=== PATIENT | female | born 1955 | race Hispanic/Latino ===

== ENCOUNTER 2023-08-28 18:07 | Inpatient (IN) | payer OTHER ==
[2023-08-28 18:34] LABS: Absolute Lymphocytes (CBC) 2.7 K/uL (0.7-4.9); Hematocrit 42.3 % (36.0-45.0); Lymphocytes % 24.4 % (15.3-44.8); MPV 9.3 fL (7.6-11.3); Platelets 314 thou/uL (152-406); RBC Red Blood Cell Count 4.98 M/uL (3.86-4.86)
--- NOTE | 2023-08-28 18:42 | RAD REPORT ---
EXAM DESCRIPTION: RAD - Chest Single View - 08/28/2023 6:37 pm CLINICAL HISTORY: CHEST PAIN Chest pain. COMPARISON: <Comparisons> FINDINGS: Portable technique limits examination quality. Mild interstitial pulmonary edema. The heart is mildly enlarged in size. No displaced fractures. IMPRESSION: Mild CHF.
[2023-08-28 18:45] LABS: Protime INR 1.03
[2023-08-28 18:55] LABS: ALT/SGPT 26 U/L (13-56); AST/SGOT 20 U/L (15-37); Albumin 3.5 g/dL (3.4-5.0); Alkaline Phosphatase 76 U/L (45-117); BUN Blood Urea Nitrogen 26 mg/dL (7-18); Bicarbonate 29 mEq/L (21-32); Bilirubin Total 0.2 mg/dL (0.2-1.0); Glomerular Filtration Rate 42 ml/min (=/>90); Glucose Level 164 mg/dL (74-106); Magnesium 1.8 mg/dL (1.6-2.4); Potassium 3.6 mEq/L (3.5-5.1); Protein, Total 7.6 g/dL (6.4-8.2); Sodium Level 140 mEq/L (136-145)
[2023-08-28 18:56] LABS: Bilirubin Direct < 0.1 mg/dL (0-0.2); Bilirubin Indirect, Calculated ND mg/dL (0.2-0.8)
[2023-08-28 18:58] LABS: Troponin High Sensitivity 131.5 pg/mL (<58.9)
--- NOTE | 2023-08-28 19:03 | RAD REPORT ---
EXAM DESCRIPTION: CT - Ct Stroke Brain Wo Cont - 08/28/2023 6:50 pm CLINICAL HISTORY: STROKE ALERT Headache, drowsiness, CVA symptomology COMPARISON: No comparisons TECHNIQUE: All CT scans are performed using dose optimization technique as appropriate and may inclu de automated exposure control or mA/KV adjustment according to patient size. FINDINGS: No intracranial hemorrhage, hydrocephalus or extra-axial fluid collection.8 mm area of dim inished density is seen in the right basal ganglia likely subacute infarct. Left vertebral atheroscle rosis. The paranasal sinuses and mastoids are clear. The calvarium is intact. IMPRESSION: 8 mm subacute infarct suspected right basal ganglia. No bleed is present.
--- NOTE | 2023-08-28 19:09 | EDPHYS ---
Physician Documentation [facility] Name: Ayleen Salas Age: 67 yrs Sex: Female : 1955 Arrival Date: 08/28/2023 Time: 18:07 Bed 20 Private MD: ED Physician Jimenez Coelho HPI: 08/28 19:15 This 67 yrs old Female presents to ER via Wheelchair with complaints of sb4 Slurred Speech. 19:15 Patient has history of hypertension, type 2 diabetes, tobacco abuse presents with sb4 slurred speech x 2 days. Daughter states that patient had a CVA in her home country 4 weeks ago and had completely recovered, no permanent deficits. States that she is taking antihypertensives and blood thinners, unknown name. They report that she started experiencing new onset slurred speech 2 days ago that has not improved they brought her for further evaluation. Historical: - Allergies: 18:33 No Known Allergies; db - Home Meds: 18:33 Metformin Oral [Active]; db - PMHx: 18:33 Hypertensive disorder; Diabetes mellitus; db - Immunization history:: Adult Immunizations unknown. - Social history:: Smoking status: Patient reports the use of cigarette tobacco products, smokes one-half pack cigarettes per day. ROS: 19:15 Constitutional: Negative for fever, chills, and weight loss, sb4 19:15 Neuro: Positive for speech changes, weakness, 19:15 All other systems are negative, Exam: 19:15 Head/Face: Normocephalic, atraumatic. Eyes: Extra-ocular motions intact. Periorbital sb4 areas with no swelling, redness, or edema. ENT: Mucous membranes moist. Cardiovascular: Regular rate and rhythm with a normal S1 and S2. Respiratory: Lungs have equal breath sounds bilaterally, clear to auscultation and percussion. No rales, rhonchi or wheezes noted. No increased work of breathing, no retractions or nasal flaring. Abdomen/GI: Soft, non-tender, no distension. Skin: Warm, dry with normal turgor. Normal color with no rashes, no lesions, and no evidence of cellulitis. MS/ Extremity: Pulses equal, no cyanosis. Neurovascular intact. Full, normal range of motion. Neuro: Awake and alert, GCS 15, oriented to person, place, time, and situation. Motor strength 5/5 in all extremities. Sensory grossly intact. 19:15 Constitutional: The patient appears alert, awake, anxious, obese, Vital Signs: 18:12 BP 164 / 73; Pulse 77; Resp 18; Temp 99.3(O); Pulse Ox 97% on R/A; Weight 104.33 kg; db Height 5 ft. 1 in. ; 20:41 BP 174 / 92; Pulse 74; Resp 18 S; Pulse Ox 97% on R/A; jw7 21:17 BP 173 / 94; Pulse 71; Resp 16 S; Pulse Ox 97% on R/A; jw7 18:12 Body Mass Index 43.46 (104.33 kg, 154.94 cm) db NIH Stroke Scale Scores: 18:41 NIHSS Score: 1 db 19:15 NIHSS Score: 1 sb4 MDM: 18:14 Patient medically screened. sb4 19:15 Data reviewed: vital signs, nurses notes, lab test result(s), EKG, radiologic studies, sb4 and as a result, I will admit patient. Consideration of Admission/Observation Patient was admitted/placed on observation. Management of patient was discussed with the following: Hospitalist: dr. villarreal. Historians other than the Patient: Daughter/Son: daughter. Care significantly affected by the following chronic conditions: Diabetes, Hypertension. Counseling: I had a detailed discussion with the patient and/or guardian regarding the historical points, exam findings, and any diagnostic results supporting the discharge/admit diagnosis, the presence of at least one elevated blood pressure reading (>120/80) during this emergency department visit, lab results, radiology results, the need for further work-up and treatment in the hospital. 08/28 18:23 Order name: Basic Metabolic Panel; Complete Time: 19:01 sb4 08/28 18:23 Order name: CBC with Diff; Complete Time: 18:42 sb4 08/28 18:23 Order name: Hepatic Function; Complete Time: 19:01 sb4 08/28 18:23 Order name: High Sensitivity Troponin; Complete Time: 19:01 sb4 08/28 18:23 Order name: Magnesium; Complete Time: 19:01 sb4 08/28 18:23 Order name: Protime (+inr); Complete Time: 18:51 sb4 08/28 18:23 Order name: Ptt, Activated; Complete Time: 18:51 sb4 08/28 18:50 Order name: Glucose, Ancillary Testing; Complete Time: 18:51 EDMS 08/28 20:24 Order name: Lipid Profile EDMS 08/28 20:24 Order name: Lipid Profile EDMS 08/28 18:23 Order name: CT Stroke Brain w/o Contrast; Complete Time: 19:04 sb4 08/28 18:23 Order name: Stroke CXR 1 View; Complete Time: 18:44 sb4 08/28 19:05 Order name: Head Angio CT; Complete Time: 20:28 sb4 08/28 19:05 Order name: Neck Angio CT; Complete Time: 20:34 sb4 08/28 18:23 Order name: EKG; Complete Time: 18:24 sb4 08/28 20:24 Order name: CONS Physician Consult [facility] 08/28 20:24 Order name: Physical Therapy Consult [facility] 08/28 18:23 Order name: Accucheck; Complete Time: 18:43 sb4 08/28 18:23 Order name: Cardiac monitoring; Complete Time: 18:43 sb4 08/28 18:23 Order name: EKG - Nurse/Tech; Complete Time: 18:43 sb4 08/28 18:23 Order name: IV Saline Lock; Complete Time: 18:43 sb4 08/28 18:23 Order name: Labs collected and sent; Complete Time: 18:43 sb4 08/28 18:23 Order name: NPO; Complete Time: 18:43 sb4 08/28 18:23 Order name: O2 Per Protocol; Complete Time: 19:06 sb4 08/28 18:23 Order name: O2 Sat Monitoring; Complete Time: 19:06 sb4 08/28 18:23 Order name: Stroke Swallow Screen; Complete Time: 19:55 sb4 EC:21 Rate is 77 beats/min. Rhythm is regular, Normal Sinus Rhythm. TN interval is normal at sb4 172 msec. QRS interval is normal at 82 msec. QT interval is normal at 396 msec. Clinical impression: NSR w/ Non-specific ST/T Changes. Interpreted by me. Reviewed by me. Administered Medications: 19:55 Drug: foLIC Acid IVPB 1 mg IVPB once Route: IVPB; Site: right antecubital; jw7 20:46 Follow up: Response: No adverse reaction; IV Status: Completed infusion; IV Intake: [id number] 19:56 Drug: Aspirin PO 162 mg PO once Route: PO; jw7 20:45 Follow up: Response: No adverse reaction jw7 Point of Care Testing: Blood Glucose: 18:33 Blood Glucose: 170 mg/dL; db Ranges: Critical Glucose Levels:Adult <50 mg/dl or >400 mg/dl <40 mg/dl or >180 mg/dl Disposition Summary: 08/28/23 19:08 Hospitalization Ordered Notes: Hospitalization Status: Inpatient Admission sb4 Provider: Geovanny Villarreal sb4 Location: Telemetry/MedSurg (Inpatient) sb4 Condition: Fair sb4 Problem: new sb4 Symptoms: are unchanged sb4 Bed/Room Type: Standard sb4 Room Assignment: 205(08/28/23 20:30) jb4 Diagnosis - Dysarthria following cerebral infarction sb4 - Subsequent non-ST elevation (NSTEMI) myocardial infarction sb4 Forms: - Medication Reconciliation Form sb4 - SBAR form sb4 - Leadership Thank You Letter sb4 NIH Stroke Scale - NIH Stroke Score Date: 08/28/2023 Time: 18:41 Total Score = 1 10. Dysarthria (speech clarity - read or repeat words) - 1(Mild to Moderate) 11. Extinction and Inattention (visual/tactile/auditory/spatial/personal) - 0(No abnormality) 1a. Level of Consciousness (LOC) - 0(Alert) 1b. Level of Consciousness (LOC) (Month \T\ Age) - 0(Both) 1c. LOC Commands (Open \T\ Closes Eyes/Counseling Center Manager) - 0(Both) 2. Best Gaze (Lateral Gaze Paresis) - 0(Normal) 3. Visual Field Loss - 0(No visual loss) 4. Facial Palsy - 0(Normal) 5a. Left Arm: Motor (10-second hold) - 0(No drift) 5b. Right Arm: Motor (10-second hold) - 0(No drift) 6a. Left Leg: Motor (5-second hold - always test supine) - 0(No drift) 6b. Right Leg: Motor (5-second hold - always test supine) - 0(No drift) 7. Limb Ataxia (finger/nose \T\ heel/solorio - test with eyes open) - 0(Absent) 8. Sensory Loss (pinprick arms/legs/face) - 0(Normal) 9. Best Language: Aphasia (description/naming/reading) - 0(No aphasia) Initials: brittany NIH Stroke Scale - NIH Stroke Score Date: 08/28/2023 Time: 19:15 Total Score = 1 10. Dysarthria (speech clarity - read or repeat words) - 1(Mild to Moderate) 11. Extinction and Inattention (visual/tactile/auditory/spatial/personal) - 0(No abnormality) 1a. Level of Consciousness (LOC) - 0(Alert) 1b. Level of Consciousness (LOC) (Month \T\ Age) - 0(Both) 1c. LOC Commands (Open \T\ Closes Eyes/Counseling Center Manager) - 0(Both) 2. Best Gaze (Lateral Gaze Paresis) - 0(Normal) 3. Visual Field Loss - 0(No visual loss) 4. Facial Palsy - 0(Normal) 5a. Left Arm: Motor (10-second hold) - 0(No drift) 5b. Right Arm: Motor (10-second hold) - 0(No drift) 6a. Left Leg: Motor (5-second hold - always test supine) - 0(No drift) 6b. Right Leg: Motor (5-second hold - always test supine) - 0(No drift) 7. Limb Ataxia (finger/nose \T\ heel/solorio - test with eyes open) - 0(Absent) 8. Sensory Loss (pinprick arms/legs/face) - 0(Normal) 9. Best Language: Aphasia (description/naming/reading) - 0(No aphasia) Initials: [email or web address] Signatures: Dispatcher [employer] Maldonado Barros RN RN jb4 Samantha Bravo RN RN jw7 Marcy Lee RN RN Selene Vickers PA-C PA-C sb4 Corrections: (The following items were deleted from the chart) 20:30 19:08 sb4 jb4
--- NOTE | 2023-08-28 19:09 | ER ---
Nurse's Notes [facility] Name: Ayleen Salas Age: 67 yrs Sex: Female : 1955 Arrival Date: 08/28/2023 Time: 18:07 Bed 20 Private MD: Diagnosis: Dysarthria following cerebral infarction;Subsequent non-ST elevation (NSTEMI) myocardial infarction Presentation: 08/28 18:12 Chief complaint: Patient's son or daughter states: PATIENT HAS SLURRED SPEECH SINCE db WEDNESDAY. STATES RECENT STROKE 4 WEEKS IN [place]. Coronavirus screen: Vaccine status: Patient reports receiving the 2nd dose of the covid vaccine. Client indicates they have traveled out of the [place] in the last 14 days. Client traveled to: [place] At this time, the client does not indicate any symptoms associated with coronavirus-19. Ebola Screen: Patient negative for fever greater than or equal to 101.5 degrees Fahrenheit, and additional compatible Ebola Virus Disease symptoms Patient denies exposure to infectious person. No symptoms or risks identified at this time. Patient reports travel to Ebola-affected area in the 21 days before illness onset. Patient reports having traveled to: [place]. No acute neurological deficit is noted. Initial Sepsis Screen: Does the patient meet any 2 criteria? No. Patient's initial sepsis screen is negative. Does the patient have a suspected source of infection? No. Patient's initial sepsis screen is negative. Risk Assessment: Do you want to hurt yourself or someone else? Patient reports no desire to harm self or others. Onset of symptoms was August 26, 2023. 18:12 Method Of Arrival: Wheelchair db 18:12 Acuity: FRANCISCO 2 db 19:00 Pre-hospital glucose is not applicable to this patient. jw7 Triage Assessment: 18:33 The onset of the patients symptoms was August 26, 2023 at 16:00. General: Appears in db no apparent distress. comfortable, Behavior is cooperative, anxious. Pain: Denies pain. Neuro: Level of Consciousness is awake, alert, obeys commands, Oriented to person, place, time, situation, Moves all extremities. Speech is slurred, Facial symmetry appears normal, Pupils are PERRLA, Reports DIFFICULTY TALKING. Respiratory: Airway is patent Respiratory effort is even, unlabored, Respiratory pattern is regular, symmetrical. Stroke Activation: Symptom onset > 6 hours Physician: Stroke Attending; Name: ; Notified At: ; Arrived At: Physician: Chief Stroke Resident; Name: ; Notified At: ; Arrived At: Physician: Stroke Resident; Name: ; Notified At: ; Arrived At: Physician: ED Attending; Name: ; Notified At: ; Arrived At: Physician: ED Resident; Name: ; Notified At: ; Arrived At: Historical: - Allergies: 18:33 No Known Allergies; db - Home Meds: 18:33 Metformin Oral [Active]; db - PMHx: 18:33 Hypertensive disorder; Diabetes mellitus; db - Immunization history:: Adult Immunizations unknown. - Social history:: Smoking status: Patient reports the use of cigarette tobacco products, smokes one-half pack cigarettes per day. Screenin:41 [facility] ED Fall Risk Assessment (Adult) History of falling in the last 3 months, db including since admission No falls in past 3 months (0 pts) Confusion or Disorientation No (0 pts) Intoxicated or Sedated No (0 pts) Impaired Gait No (0 pts) Mobility Assist Device Used No (0 pt) Altered Elimination No (0 pt) Score/Fall Risk Level 0 - 2 = Low Risk Oriented to surroundings, Maintained a safe environment. Abuse screen: Denies threats or abuse. Denies injuries from another. Nutritional screening: No deficits noted. Tuberculosis screening: No symptoms or risk factors identified. Assessment: 19:00 General: See Triage Assessment. jw7 19:00 TNKase (Tenecteplase) Screening: Contraindications: Patient reports onset of signs and jw7 symptoms of stroke greater than 6 hours ago: Yes. 19:00 VAN Scoring: Arm Drift: Patients demonstrates NO arm weakness. Patient is VAN Negative. jw7 Visual Disturbance: No visual disturbance noted. Aphasia: No aphasia noted. Neglect: No neglect noted. 19:00 [place] Swallow Protocol Brief Cognitive Screen What is your name? Normal, Where are you jw7 right now? Normal, What year is it? Normal. Oral Mechanism Examination Facial Symmetry: Normal, Motion: Normal, Lip Closure: Normal, Oral Mechanism Result: Normal. 3 oz Water Swallow Challenge: Pt able to drink all water without stopping, coughing, choking or throat clearing: Yes Result: PASS. 20:00 Reassessment: Patient appears in no apparent distress at this time. No changes from jw7 previously documented assessment. Patient and/or family updated on plan of care and expected duration. Pain level reassessed. Patient is alert, oriented x 3, equal unlabored respirations, skin warm/dry/pink. 21:00 Reassessment: Patient appears in no apparent distress at this time. No changes from jw7 previously documented assessment. Patient and/or family updated on plan of care and expected duration. Pain level reassessed. Patient is alert, oriented x 3, equal unlabored respirations, skin warm/dry/pink. 21:17 General: attempted to call report, no answer. jw7 21:33 General: attempted to call report, no answer. jw7 21:37 General: Report given to DOMINIQUE Santos. jw7 Vital Signs: 18:12 BP 164 / 73; Pulse 77; Resp 18; Temp 99.3(O); Pulse Ox 97% on R/A; Weight 104.33 kg; db Height 5 ft. 1 in. ; 20:41 BP 174 / 92; Pulse 74; Resp 18 S; Pulse Ox 97% on R/A; jw7 21:17 BP 173 / 94; Pulse 71; Resp 16 S; Pulse Ox 97% on R/A; jw7 18:12 Body Mass Index 43.46 (104.33 kg, 154.94 cm) db NIH Stroke Scale Scores: 18:41 NIHSS Score: 1 db 19:15 NIHSS Score: 1 sb4 ED Course: 18:08 Patient arrived in ED. im 18:14 Selene Martinez [facility]C [facility] sb4 18:14 Jimenez Coelho MD is Attending Physician. sb4 18:26 Inserted saline lock: 22 gauge in right upper arm, using aseptic technique. Blood db collected. 18:31 Marcy Lee, RN is Primary Nurse. db 18:33 Triage completed. db 18:33 Arm band placed on Patient placed in an exam room. db 18:38 Stroke CXR 1 View In Process Unspecified. EDMS 18:41 Patient has correct armband on for positive identification. Bed in low position. Call db light in reach. Side rails up X 1. Client placed on continuous cardiac and pulse oximetry monitoring. NIBP monitoring applied. 18:52 CT Stroke Brain w/o Contrast In Process Unspecified. EDMS 19:07 Geovanny Villarreal MD is Hospitalizing Provider. sb4 19:19 Waits, Samantha, RN is Primary Nurse. jw7 20:[address] In Process Unspecified. EDMS 20:[address] In Process Unspecified. EDMS 20:44 Provided Education on: need for admit. jw7 20:44 No provider procedures requiring assistance completed. Patient admitted, IV remains in [facility] place. Administered Medications: 19:55 Drug: foLIC Acid IVPB 1 mg IVPB once Route: IVPB; Site: right antecubital; [facility] 20:46 Follow up: Response: No adverse reaction; IV Status: Completed infusion; IV Intake: [id number] 19:56 Drug: Aspirin PO 162 mg PO once Route: PO; [facility] 20:45 Follow up: Response: No adverse reaction [facility] Medication: 20:45 VIS not applicable for this client. [facility] Point of Care Testing: Blood Glucose: 18:33 Blood Glucose: 170 mg/dL; db Ranges: Intake: 20:46 IV: 10ml; Total: 10ml. [facility] Outcome: 19:08 Decision to Hospitalize by Provider. sb4 21:38 Admitted to Med/surg accompanied by tech, via stretcher, room 205, Report called to grisel Santos RN 21:38 Condition: stable 21:38 Instructed on the need for admit, Demonstrated understanding of instructions, 21:46 Patient left the ED. [facility] NIH Stroke Scale - NIH Stroke Score Date: 08/28/2023 Time: 18:41 Total Score = 1 10. Dysarthria (speech clarity - read or repeat words) - 1(Mild to Moderate) 11. Extinction and Inattention (visual/tactile/auditory/spatial/personal) - 0(No abnormality) 1a. Level of Consciousness (LOC) - 0(Alert) 1b. Level of Consciousness (LOC) (Month \T\ Age) - 0(Both) 1c. LOC Commands (Open \T\ Closes Eyes/Interactive Account Manager) - 0(Both) 2. Best Gaze (Lateral Gaze Paresis) - 0(Normal) 3. Visual Field Loss - 0(No visual loss) 4. Facial Palsy - 0(Normal) 5a. Left Arm: Motor (10-second hold) - 0(No drift) 5b. Right Arm: Motor (10-second hold) - 0(No drift) 6a. Left Leg: Motor (5-second hold - always test supine) - 0(No drift) 6b. Right Leg: Motor (5-second hold - always test supine) - 0(No drift) 7. Limb Ataxia (finger/nose \T\ heel/solorio - test with eyes open) - 0(Absent) 8. Sensory Loss (pinprick arms/legs/face) - 0(Normal) 9. Best Language: Aphasia (description/naming/reading) - 0(No aphasia) Initials: brittany NIH Stroke Scale - NIH Stroke Score Date: 08/28/2023 Time: 19:15 Total Score = 1 10. Dysarthria (speech clarity - read or repeat words) - 1(Mild to Moderate) 11. Extinction and Inattention (visual/tactile/auditory/spatial/personal) - 0(No abnormality) 1a. Level of Consciousness (LOC) - 0(Alert) 1b. Level of Consciousness (LOC) (Month \T\ Age) - 0(Both) 1c. LOC Commands (Open \T\ Closes Eyes/Interactive Account Manager) - 0(Both) 2. Best Gaze (Lateral Gaze Paresis) - 0(Normal) 3. Visual Field Loss - 0(No visual loss) 4. Facial Palsy - 0(Normal) 5a. Left Arm: Motor (10-second hold) - 0(No drift) 5b. Right Arm: Motor (10-second hold) - 0(No drift) 6a. Left Leg: Motor (5-second hold - always test supine) - 0(No drift) 6b. Right Leg: Motor (5-second hold - always test supine) - 0(No drift) 7. Limb Ataxia (finger/nose \T\ heel/solorio - test with eyes open) - 0(Absent) 8. Sensory Loss (pinprick arms/legs/face) - 0(Normal) 9. Best Language: Aphasia (description/naming/reading) - 0(No aphasia) Initials: sb4 Signatures: Dispatcher [employer] Samantha Shane RN RN jw7 Marcy Lee RN RN db Brown, Sophia, PA-C PAGracie sb4 Ale Liu
[2023-08-28] MEDS ORDERED: ASPIRIN 81 MG CHEWABLE TABLET ONE (19:25)
[2023-08-28] MEDS ORDERED: FOLIC ACID 5 MG/ML VIAL ONE (19:26)
[2023-08-28] MEDS ORDERED: ONDANSETRON 4 MG/2 ML VIAL IV PRN (20:19)
[2023-08-28] MEDS ORDERED: ACETAMINOPHEN 325 MG TABLET PO PRN (20:19)
--- NOTE | 2023-08-28 20:25 | P.HP ---
Certification for Inpatient Patient admitted to: Inpatient With expected LOS: >2 Midnights Practitioner: I am a practitioner with admitting privileges, knowledge of patient current condition, hospital course, and medical plan of care. Services: Services provided to patient in accordance with Admission requirements found in Title 42 Section 412.3 of the Code of Federal Regulations Patient History Date of Service: 08/29/23 Reason for admission: Falls, slurred speech, weakness. History of Present Illness: Six 7-year-old female patient who has a medical history significant for diabetes was evaluated for episode of slurred speech weakness and concerns for a stroke. Patient reported slurred speech weakness and falls and unsteady gait since she had symptoms that started approximately a month ago. She was out to visit family members in [place] when she had strokelike symptoms with slurred speech and weakness. At that time as per daughter at bedside she was evaluated by physicians in foreign country and she was deemed to have a stroke. She was put on medical therapy and after she was cleared for safe travel she was transferred immediately to the [facility] for ongoing care and evaluation. While at home with family member she was noted to have unsteady gait emotional lability and occasions of slow speech. Recently/page code was so she was brought to the emergency room. In the ED she had a CT of the head done that showed 8 mm subacute infarct in the brain and a CTA of the head and neck showed plaque irregularities in the vertebral artery. No significant stenosis reported. Because of concern for acute stroke she was admitted for inpatient workup. Allergies No Known Allergies Allergy (Verified 08/28/23 22:01) Home Medications: Aspirin Chewable [Aspirin Chewable*] 81 mg PO DAILY 08/28/23 Metformin HCl [Glucophage*] 500 mg PO BID 08/28/23 - Family History Mother -: Hypertension Review of Systems General: Weakness, Malaise Eyes: Unremarkable ENT: Unremarkable Respiratory: Unremarkable Cardiovascular: Unremarkable Gastrointestinal: Unremarkable Genitourinary: Unremarkable Musculoskeletal: Unremarkable Neurological: Weakness, Incoordination, Change in Speech, Confusion Lymphatics: Unremarkable Physical Examination - Physical Exam General: Alert, Mild distress HEENT: Atraumatic Neck: Supple Respiratory: Normal air movement Cardiovascular: Regular rate/rhythm, Normal S1 S2 Gastrointestinal: Soft and benign Musculoskeletal: No swelling - Studies Laboratory Data (last 24 hrs) 08/28/23 08/28/23 08/28/23 18:26 18:26 18:26 WBC 10.90 Hgb 13.9 Hct 42.3 Plt Count 314 PT 11.3 INR 1.03 APTT 32.4 Sodium 140 Potassium 3.6 BUN 26 H Creatinine 1.38 H Glucose 164 H Magnesium 1.8 Total Bilirubin 0.2 AST 20 ALT 26 Alkaline Phosphatase 76 Assessment and Plan - Plan Cerebrovascular accident: CT of the head showed acute/subacute infarct. Will obtain MRI of the brain to evaluate further. CTA of the head and neck showed no significant stenosis however there are vertebral artery plaque/irregularities. Will continue aspirin therapy and continue statin therapy. Neurology consulted for management recommendation. NSTEMI: Troponin is elevated at 130 on initial lab. Will trend troponin, obtain echocardiogram to assess an IVF calibration tester to evaluate as needed. Hyperlipidemia: Continue statin therapy and update lipid panel. Prophylaxis: Lovenox for DVT prophylaxis. CODE STATUS: Full code. Disposition: We will treat and workup cerebrovascular accident and she will discharge her when she is deemed clinically stable and cleared by appropriate consulting physicians. - Advance Directives Does patient have a Living Will: No Does patient have a Durable POA for Healthcare: No
--- NOTE | 2023-08-28 20:26 | RAD REPORT ---
EXAM DESCRIPTION: CT - Head angio - 08/28/2023 8:10 pm CLINICAL HISTORY: STROKE ALERT Headache, drowsiness, CVA symptomology COMPARISON: Ct Stroke Brain Wo Cont dated 08/28/2023 TECHNIQUE: CT angiography of the head was performed with MIPs. All CT scans are performed using dose optimization technique as appropriate and may include automated exposure control or mA/KV adjustment according to patient size. FINDINGS: No evidence of large vessel occlusion. No evidence of aneurysm is detected. No flow-limiti ng stenosis or vascular malformation identified. Antegrade flow is seen in the vertebral arteries. The left vertebral artery is dominant. The visualized dural venous sinuses are patent. IMPRESSION: No significant flow abnormality is detected.
--- NOTE | 2023-08-28 20:33 | RAD REPORT ---
EXAM DESCRIPTION: CT - Neck Angio - 08/28/2023 8:10 pm CLINICAL HISTORY: stroke Headache, drowsiness, CVA symptomology COMPARISON: No comparisons TECHNIQUE: CT angiography of the neck vessels was performed with MIPs. All CT scans are performed using dose optimization technique as appropriate and may include automated exposure control or mA/KV adjustment according to patient size. FINDINGS: A left aortic arch is identified with normal three vessel configuration of the great vesse ls. No significant flow abnormality is seen of the common carotid bilaterally. Moderate soft plaque is seen involving the right carotid bulb resulting in stenosis of 50-70% based o n NASCET criteria. Mild hard plaque is present left carotid bulb resulting in stenosis of 50-60% base d on NASCET criteria. Normal flow is seen within both vertebral arteries. Left vertebral artery dominant. IMPRESSION: Moderate mixed plaquing is present, bilateral carotid bulbs, greater on the right. Based on NASCET criteria, moderate stenosis is present bilaterally. NASCET criteria used. Mild 0-49% stenosis Moderate 50-69% stenosis Severe 70-99% stenosis
[2023-08-28 22:13] VITALS: BMI 46.9
[2023-08-28] MEDS: ATORVASTATIN 40 MG TAB PO SCH (22:46)
[2023-08-28] MEDS: NA CHLORIDE 0.9% 1,000 ML IV SCH (22:46)
--- NOTE | 2023-08-29 07:25 | P.PN ---
Date of Service: 08/29/23 Subjective: reportedly had stroke ~4 weeks ago out of the [place] in [facility]. [place]ame back to [place], symptoms mostly resolved per family and was dealing with some lingering weakness / balance issues new slurred speech started ~2 days ago. +started to feel progressively weaker daughter reports compliance with home meds but unsure of home meds at this time - at one point said hasn't taken aspirin in 2 weeks, unsure of what blood pressure medication she takes patient mentioned a medication to help lower BP, and medication to help with leg swelling this morning, slurred speech has cleared up improved substantially per family +left arm pain ROS: 10 point ROS as noted above, otherwise negative Physical Exam: GEN: Alert, oriented, NAD; obese HEENT: Normal conjunctiva, sclera anicteric CV: Regular rate and rhythm, trace bilateral lower extremity edema Pulm: Nonlabored respirations on room air, diminished coarse breath sounds bilaterally ABD: Soft, nontender, nondistended Neuro: Normal speech, normal affect, intact sensation; lower extremity exam l imited due to knee pain vitals reviewed Problem List: Subacute CVA (8mm R Basal Ganglia) Moderate bilateral Carotid stenosis, R > L Generalized weakness, h/o frequent falls NSTEMI Hypertension Hyperlipidemia NIDDM2 Subacute CVA (8mm R Basal Ganglia) Moderate Carotid stenosis, R > L Generalized weakness, h/o frequent falls reportedly had stroke ~4 weeks ago out of the [place] in [facility]. [place]ame back to [place], symptoms mostly resolved per family and was dealing with some lingering weakness family do not have paperwork / don't know where stroke was ~2 days ago developed new onset slurred speech, +progressively felt weaker. Slurred speech has cleared up improved substantially per family overnight CT head (08/28): 8mm subacute infarct suspected right basal ganglia CTA head (08/28): no significant flow abnormality CTA neck (08/28): moderate stenosis bilaterally. R > L MRI brain (08/29): ordered - to be done earliest wednesday Neurology consulted Continue aspirin 81 mg, statin, add plavix family unsure of BP med at home, start amlodipine for now, avoiding ACEI/ARB given mild THOMAS on presentation IV PRN as needed NSTEMI CXR (08/28): Mild CHF Iniital troponin elevated. trend troponins. Cardiology consulted Echo ordered to eval EF / stenosis patient reports some swelling in legs lately, and mentioned she has taken a medication to help with swelling at some point in the past possibly some degree of CHF Monitor on telemetry Hypertension continue aspirin 81 mg amlodipine ordered IV hydralazine PRN if SBP > 200 Hyperlipidemia Continue statin NIDDM2 Accu-checks, SSI VTE: Lovenox Code: Full Dispo: Home ~1-2 days Pending MRI brain, neuro/cardiac recs.
[2023-08-29 08:25] LABS: Absolute Lymphocytes (CBC) 2.6 K/uL (0.7-4.9); Hematocrit 39.7 % (36.0-45.0); Lymphocytes % 28.2 % (15.3-44.8); MCV 85.3 fL (80-100); MPV 9.3 fL (7.6-11.3); Platelets 282 thou/uL (152-406); RBC Red Blood Cell Count 4.66 M/uL (3.86-4.86)
[2023-08-29] MEDS: ENOXAPARIN 40 MG/0.4 ML SQ SCH (08:38)
[2023-08-29] MEDS: ASPIRIN 81 MG CHEWABLE TABLET PO SCH ×2 (08:38→09:00)
[2023-08-29 08:42] LABS: Bilirubin Total 0.2 mg/dL (0.2-1.0); Phosphorus 3.6 mg/dL (2.5-4.9); Potassium 3.8 mEq/L (3.5-5.1); Protein, Total 6.6 g/dL (6.4-8.2)
[2023-08-29] MEDS: AMLODIPINE 5 MG TAB PO ONE (12:36)
[2023-08-29] MEDS: CLOPIDOGREL 75 MG TABLET PO ONE (12:36)
[2023-08-30 07:04] LABS: Absolute Lymphocytes (CBC) 2.6 K/uL (0.7-4.9); Hematocrit 41.2 % (36.0-45.0); Lymphocytes % 26.6 % (15.3-44.8); MCV 85.4 fL (80-100); MPV 9.7 fL (7.6-11.3); Platelets 313 thou/uL (152-406); RBC Red Blood Cell Count 4.82 M/uL (3.86-4.86)
[2023-08-30 07:26] LABS: Potassium 3.8 mEq/L (3.5-5.1)
[2023-08-30 07:28] LABS: Troponin High Sensitivity 141.4 pg/mL (<58.9)
--- NOTE | 2023-08-30 08:36 | RAD REPORT ---
EXAM DESCRIPTION: MRI - Brain Wo Cont - 08/30/2023 8:23 am CLINICAL HISTORY: CVA COMPARISON: Head CT August 28, 2023 TECHNIQUE: Axial, sagittal, and coronal magnetic resonance images of the brain were obtained. FINDINGS: Diffusion-weighted/ADC mapping demonstrates a 5 millimeter acute/ subacute infarct left internal caps ule 10 millimeter infarct right internal capsule is old. . The ventricles are normal caliber. Mild signal periventricular, deep and subcortical white matter ischemic changes secondary to small ve ssel disease An extra-axial fluid collection is not noted. Fluid within the sinuses/mastoids is not seen IMPRESSION: 5 millimeter acute/subacute infarct left internal capsule 10 millimeter old right internal capsule infarct
[2023-08-30] MEDS: CLOPIDOGREL 75 MG TABLET PO SCH (09:28)
[2023-08-30] MEDS: HYDRALAZINE HCL 20 MG/ML VIAL IV PRN (11:40)
--- NOTE | 2023-08-30 13:35 | CON ---
Date of Consultation: 08/30/2023 Reason For Consultation: Elevated troponin. History Of Present Illness: This is a 67-year-old female, past medical history of diabetes, obesity, presented to the hospital with slurred speech and unsteady gait for a few days. She denies having a ny chest pain. No history of cardiac disease and upon evaluation in the emergency room, they did a t roponin check and it was borderline elevated. She denies having any chest pain or shortness of breat h at present time, not even prior to coming to the hospital or on exertion. Past Medical History: Diabetes. Medications: Refer consultation sheet for detailed list. Allergies: NO KNOWN DRUG ALLERGIES. Family History: No premature coronary artery disease or cancer. Social History: She does not smoke or drink. Does not use any drugs. Review of Systems: All systems reviewed are negative except mentioned in HPI. Physical Examination: Vital signs: Reviewed. Head and Neck: Pupils are equal, reactive to light. Intact eye movements. No JVD. No cervical lym phadenopathy. Neck supple. Thyroid is not enlarged. Lungs: Clear to auscultation bilaterally. No rhonchi, rales, or crackles. No accessory muscle use. Heart: Regular rate and rhythm. No extra sounds. Abdomen: Soft, nontender. Bowel sounds positive. No organomegaly. No masses or hernia. No rigidi ty or rebound. Extremities: No edema, clubbing, cyanosis. Intact pulses. Skin: No rash. Neurologic: Alert, awake, oriented x3. No acute focal deficits appreciated. Investigations: BUN 18, creatinine 0.8. Troponin is in the 140 and stable and hemoglobin 13.6. Assessment/recommendation: 1.Elevated troponin. No chest pain. This is demand. The patient has risk factors with recent stro ke and diabetes. Recommend to evaluate further with a stress test which as an outpatient once she garcia s recovered completely from the stroke. 2.Acute CVA and CT angiogram of the neck is showing moderate stenosis between 50 to 70 in the right and 50 to 60 on the left. I recommend an official angiogram to be done on her in the near future. I n the interim, continue aspirin, Plavix, and care for monitoring on outpatient basis and continue sta tin. 3.Dyslipidemia. Continue statin. SR/MODL Voice ID: [id number] Report ID: [id number]
--- NOTE | 2023-08-30 15:03 | EKG ---
Test Date: 2023-08-28 Test Time: 18:25:38 Associate Professor Of Criminal Justice: HODA MEASUREMENT RESULTS: Intervals: Rate: 77 [place]: 172 QRSD: 82 QT: 396 QTc: 448 [place]: P: 75 [place]: 172 QRS: 36 T: 90 INTERPRETIVE STATEMENTS: Normal sinus rhythm Nonspecific ST and T wave abnormality Abnormal ECG No previous ECG available for comparison Electronically Signed On 08-30-23 14:59:19 MANAGER SUPPLIER by Jose aDvid Saldana
[2023-08-30 18:22] LABS: Urine Bacteria >50 /HPF (<20); Urine RBC 21-50 /HPF (None Seen)
[2023-08-30 18:28] LABS: Urine Clarity Turbid (Clear); Urine Color Light-Yellow (Yellow)
[2023-08-30 18:29] LABS: Specific Gravity 1.008 (1.005-1.030); Urine Bilirubin NEGATIVE (Negative); Urine Blood Negative (Negative); Urine Glucose Negative (Negative); Urine Protein NEGATIVE (Negative); Urine Urobilinogen Normal (Normal)
--- NOTE | 2023-08-31 11:05 | P.DS ---
Admission Date: 08/28/23 Discharge Date: 08/31/23 Disposition: ROUTINE DISCHARGE Discharge Condition: FAIR Reason for Admission: Falls, slurred speech, weakness. Brief History of Present Illness: 67-year-old female patient who has a medical history significant for diabetes was evaluated for episode of slurred speech weakness and concerns for a stroke. Patient reported slurred speech, weakness and falls and unsteady gait, onset was a month ago. She developed these strokelike symptoms while in [facility]. She was evaluated by physicians and she was deemed to have a stroke. She was put on antihypertensives. [place] the [place] and while at home with family member she was noted to have unsteady gait, emotional lability and slow speech. Patient presented to the ED where she had a CT of the head done that showed 8 mm subacute infarct in the brain and a CTA of the head and neck showed plaque irregularities in the vertebral artery. No significant stenosis reported. Because of concern for acute stroke she was admitted for inpatient workup and management. Hospital Course: Diagnosis Subacute CVA (8mm R Basal Ganglia) Moderate bilateral Carotid stenosis, R > L Generalized weakness, h/o frequent falls NSTEMI Hypertension Hyperlipidemia NIDDM2 Subacute CVA (8mm R Basal Ganglia) Moderate Carotid stenosis, R > L Generalized weakness, h/o frequent falls Slurred speech has cleared up and weakness improved substantially per family. CT head (08/28): 8mm subacute infarct suspected right basal ganglia CTA head (08/28): no significant flow abnormality CTA neck (2): moderate stenosis bilaterally. R > L MRI brain (08/29): 5 mm left internal capsule acute/subacute infarct, 10 mm old right internal capsule infarct. Case discussed with neurology who recommended medical management with aspirin, Plavix, Lipitor and folic acid. Patient also has UTI which could flareup her left-sided weakness. Patient prescribed amlodipine for hypertension. Follow-up for further evaluation of carotid artery disease as outpatient. NSTEMI CXR (2): Mild CHF Troponin mildly elevated but trended flat. Cardiology Dr. Saldana evaluated patient and recommended further workup with outpatient stress test Echo unremarkable and showed normal EF. Hypertension continue aspirin 81 mg IV hydralazine PRN if SBP > 200 Permissive hypertension done Patient discharged with amlodipine for blood pressure control Hyperlipidemia Continued statin NIDDM2 Managed with insulin sliding scale. Vital Signs/Physical Exam: Temp Pulse Resp BP Pulse Ox 97.5 F 76 18 189/90 H 94 08/31/23 08:00 08/31/23 08:00 08/31/23 08:00 08/31/23 08:00 08/31/23 08:00 General: Alert, In no apparent distress, Oriented x3 HEENT: Mucous membr. moist/pink, Sclerae nonicteric Neck: Supple, JVD not distended Respiratory: Clear to auscultation bilaterally, Normal air movement Cardiovascular: No edema, Regular rate/rhythm, Normal S1 S2 Gastrointestinal: Normal bowel sounds, Soft and benign, Non-distended, No tenderness Musculoskeletal: No swelling, No tenderness Integumentary: No rashes, No cyanosis Neurological: Normal speech, Normal strength at 5/5 x4 extr, Cranial nerves 3-12 intact Laboratory Data at Discharge: WBC 9.70 thou/uL (4.3-10.9) 08/30/23 06:40 Hgb 13.6 g/dL (12.0-15.0) 08/30/23 06:40 Hct 41.2 % (36.0-45.0) 08/30/23 06:40 Plt Count 313 thou/uL (152-406) 08/30/23 06:40 PT 11.3 SECONDS (9.5-12.5) 08/28/23 18:26 INR 1.03 08/28/23 18:26 APTT 32.4 SECONDS (24.3-36.9) 08/28/23 18:26 Sodium 140 mEq/L (136-145) 08/30/23 06:40 Potassium 3.8 mEq/L (3.5-5.1) 08/30/23 06:40 BUN 18 mg/dL (7-18) 08/30/23 06:40 Creatinine 0.81 mg/dL (0.55-1.02) 08/30/23 06:40 Glucose 174 mg/dL (74-106) H 08/30/23 06:40 Phosphorus 3.6 mg/dL (2.5-4.9) 08/29/23 08:11 Magnesium 2.0 mg/dL (1.6-2.4) 08/30/23 06:40 Total Bilirubin 0.2 mg/dL (0.2-1.0) 08/29/23 08:11 AST 10 U/L (15-37) L 08/29/23 08:11 ALT 21 U/L (13-56) 08/29/23 08:11 Alkaline Phosphatase 56 U/L (45-117) D 08/29/23 08:11 Triglycerides 146 mg/dL (<150) 08/29/23 02:44 Cholesterol 180 mg/dL (<200) 08/29/23 02:44 HDL Cholesterol 45 mg/dL (40-60) 08/29/23 02:44 Cholesterol/HDL Ratio 4.00 08/29/23 02:44 Home Medications: Aspirin Chewable [Aspirin Chewable*] 81 mg PO DAILY 08/28/23 Metformin HCl [Glucophage*] 500 mg PO BID 08/28/23 Atorvastatin Calcium [Lipitor] 40 mg PO BEDTIME #30 tab 08/31/23 Cefpodoxime Proxetil 100 mg PO BID #10 tab 08/31/23 Clopidogrel Bisulfate [Plavix*] 75 mg PO DAILY #30 tab 08/31/23 Folic Acid 1 mg PO DAILY #30 tab 08/31/23 New Medications: Cefpodoxime Proxetil 100 mg PO BID #10 tab Folic Acid 1 mg PO DAILY #30 tab Atorvastatin Calcium [Lipitor] 40 mg PO BEDTIME #30 tab Clopidogrel Bisulfate [Plavix*] 75 mg PO DAILY #30 tab Physician Discharge Instructions: Patient presented with slurred speech, weakness, unsteady gait. CT head noted 8 mm subacute infarct suspected right basal ganglia. CTA neck noted moderate stenosis bilaterally R > L. Neurology was consulted. Patient was medically managed and received aspirin and statin therapy while hospitalized. MRI brain ordered for further evaluation, confirmed left internal capsule acute/subacute stroke. Troponins were mildly elevated. CXR wild mild pulmonary edema. Cardiology evaluated patient and recommended outpatient stress test. Echo was unremarkable. Follow up: PCP 3-5 days Neurology 2-4 weeks Cardiology 1-2 weeks Diet: ADA Activity: Fall precautions Followup: Emiliano Olivares MD [ASSOCIATE-ACTIVE - CAN ADMIT] - (F/U in 2-4 weeks) NONE,NONE [Primary Care Provider] - Jose David Saldana MD [ACTIVE - CAN ADMIT] - 1-2 Weeks Time spent managing pt's care (in minutes): 33
[2023-08-31 11:18] VITALS: O2SAT 94
[2023-08-31 12:41] VITALS: BP 173/83; TEMP 97.9
--- NOTE | 2023-08-31 13:28 | ECHO ---
HEIGHT: 5 ft 2 in WEIGHT: 256 lb 9.6 oz DATE OF STUDY: 08/31/[address]: Geovanny Villarreal MD 2-DIMENSIONAL: YES M.MODE: YES DOPPLER: YES COLOR FLOW: YES TDS: PORTABLE: YES DEFINITY: BUBBLE STUDY: DIAGNOSIS: EVALUATION OF CEREBRAL VASCULAR ACCIDENT/ NON ST ELEVATION MYOCARDIAL INFARCTION CARDIAC HISTORY: CATHERIZATION: NO SURGERY: NO PROSTHETIC VALVE: NO PACEMAKER: NO MEASUREMENTS (cm) DIASTOLIC (NORMALS) SYSTOLIC (NORMALS) IVSd 1.6 (0.6-1.2) LA Diam 2.0 (1.9-4.0) LVEF 55% LVIDd 3.0 (3.5-5.7) LVIDs 2.3 (2.0-3.5) %FS LVPWd 1.6 (0.6-1.2) Ao Diam 2.8 (2.0-3.7) 2 DIMENSIONAL ASSESSMENT: RIGHT ATRIUM: NORMAL LEFT ATRIUM: NORMAL RIGHT VENTRICLE: NORMAL LEFT VENTRICLE: LEFT VENTRICULAR HYPERTROPHY TRICUSPID VALVE: MILD TRICUSPID REGURGITATION MITRAL VALVE: TRACE MITRAL REGURGITATION PULMONIC VALVE: NOT WELL SEEN AORTIC VALVE: NORMAL PERICARDIAL EFFUSION: NONE AORTIC ROOT: NORMAL LEFT VENTRICULAR WALL MOTION: APPEARS NORMAL DOPPLER/COLOR FLOW: SEE BELOW COMMENTS: 1. NORMAL LEFT VENTRICULAR EJECTION FRACTION 55-60% 2. GRADE I DIASTOLIC DYSFUNCTION 3. MODERATE CONCENTRIC LEFT VENTRICULAR HYPERTROPHY TECHNOLOGIST: BLUE DAVILA
--- NOTE | 2023-08-31 15:56 | PN ---
Date of Progress Note: 08/31/2023 Subjective: Seen at bedside, doing clinically better. No complaints today. Review of Systems: No chest pain, shortness of breath, orthopnea, cough. No nausea, vomiting, diarrhea. No abdominal p ain. No dysuria, polyuria, or urinary urgency. No skin rash, petechia. All other systems reviewed are negative. Physical Examination: Vital Signs: Reviewed. Head and Neck: Pupils are equal, reactive to light. Intact eye movements. No JVD. No cervical lym phadenopathy. Neck is supple. Thyroid is not enlarged. Lungs: Clear to auscultation bilaterally. No rhonchi, wheezing, or crackles. No accessory muscle u se. Heart: Regular rate and rhythm. No extra sounds. Abdomen: Soft, nontender. Bowel sounds positive. No organomegaly. No masses or hernia. No rigidi ty or rebound. Extremities: No edema, clubbing, or cyanosis. Intact pulses. Skin: No rash. No nodule. Neurologic: Alert, awake, oriented x3. No acute focal deficits appreciated. Investigations: Labs are reviewed. Assessment/recommendation: 1.Acute CVA, resolved. Continue aspirin and Plavix. The patient has carotid stenosis, see below. 2.Carotid stenosis. Is moderate by CT scan. Plan for outpatient carotid angiogram for accurate ass essment and treatment accordingly. In the interim, continue aspirin and Plavix. 3.Dyslipidemia. Continue statin. 4.Elevated troponin. No chest pain. Plan for outpatient stress test. /ELKEL Voice ID: [id number] Report ID: [id number]
--- NOTE | 2023-08-31 19:11 | P.PN ---
Subjective Date of Service: 08/30/23 Chief Complaint: Falls, slurred speech, weakness. Patient denies any complaint. Family reports that patient slurred speech has resolved. No issues overnight. Patient is ambulatory. Physical Examination - Vital Signs Temperature: 97.9 F Blood Pressure: 173/83 Pulse: 74 Respirations: 16 Pulse Ox (%): 97 Assessment And Plan - Plan Physical Exam: GEN: Alert, oriented, NAD; obese HEENT: Normal conjunctiva, sclera anicteric CV: Regular rate and rhythm, trace bilateral lower extremity edema Pulm: Clear to auscultation bilaterally, no crackles or rhonchi. ABD: Soft, nontender, nondistended Neuro: Normal speech, normal affect, no focal motor deficit. vitals reviewed Problem List: Subacute CVA (8mm R Basal Ganglia) Moderate bilateral Carotid stenosis, R > L Generalized weakness, h/o frequent falls NSTEMI Hypertension Hyperlipidemia NIDDM2 Subacute CVA (8mm R Basal Ganglia) Moderate Carotid stenosis, R > L Generalized weakness, h/o frequent falls CT head (08/28): 8mm subacute infarct suspected right basal ganglia CTA head (08/28): no significant flow abnormality CTA neck (08/28): moderate stenosis bilaterally. R > L MRI brain (08/29): Confirms right basal ganglia infarct. Neurology input appreciated Medical management with aspirin 81 mg, Plavix and statin. Permissive hypertension. IV PRN antihypertensives as needed No problem with swallowing. PT. NSTEMI CXR (08/28): Mild CHF Iniital troponin elevated. trend troponins. Cardiology input appreciated. Elevated troponin likely secondary to demand ischemia. Echo done and the result is pending. Monitor on telemetry Hypertension continue aspirin 81 mg IV hydralazine PRN if SBP > 200 Permissive hypertension. Hyperlipidemia Continue statin NIDDM2 Accu-checks, SSI VTE: Lovenox Code: Full
== END 2023-08-31 13:57 | disposition home or self-care (01) | DRG 64 ==
LOC: ER 18:07 → 2ND 20:19
PROVIDERS: ADMIT Internal Medicine Nephrology; ATTEND Internal Medicine
DX: I63.9 Cerebral infarction, unspecified (principal); I21.A1 Myocardial infarction type 2; N17.9 Acute kidney failure, unspecified; Z68.41 Body mass index [BMI] 40.0-44.9, adult; N39.0 Urinary tract infection, site not specified; G81.94 Hemiplegia, unspecified affecting left nondominant side; E66.9 Obesity, unspecified; E78.5 Hyperlipidemia, unspecified; E11.9 Type 2 diabetes mellitus without complications; I11.0 Hypertensive heart disease with heart failure; I50.9 Heart failure, unspecified; I65.23 Occlusion and stenosis of bilateral carotid arteries; I69.322 Dysarthria following cerebral infarction; F17.210 Nicotine dependence, cigarettes, uncomplicated; R29.701 NIHSS score 1; R47.81 Slurred speech; Z79.82 Long term (current) use of aspirin; Z79.84 Long term (current) use of oral hypoglycemic drugs; Z79.02 Long term (current) use of antithrombotics/antiplatelets; Z79.899 Other long term (current) drug therapy
CPT/HCPCS: 36415; 70450; 70496; 70498; 70551; 71045; 80048; 80053; 80061; 80076; 81001; 82947; 83735; 84100; 84484; 85025; 85610; 85730; 87077; 87086; 87088; 87186; 93005; 93306; 97112; 97116; 97161; J0360; J1650; J7030; Q9967

== ENCOUNTER 2024-12-07 19:36 | Emergency (ER) | payer OTHER ==
--- OUTSIDE RECORDS SUMMARY | 2024-12-07 19:40 | XMS REPORT | Continuity of Care Document ---
Author Name Unknown Address [address] [facility] [place] [address] [facility] Address [address] [place] [address] Care Team Providers Care Reticle Printer Name Role Phone Yumiko Wiley NP Primary Care Physician Clare Desouza Attending Clinician Bryn Chamorro Attending Clinician Unavailable Doctor Unassigned, Excel Attending Clinician U navailable CLARE GILMORE Attending Clinician Unavailable CASEY FINNEY Attending Clinician Unavailable Thao Spears OT Attending Clinician Unavail able Beth Pederson PT Attending Clinician Unavailable Casey Finney MD Attending Clinician Clare Desouza Attending Clinician [phone] AYDEE JACOBS Attending Clinician Unavail able AYDEE JACOBS Attending Clinician Unavail able Lab, Ang - Db Attending Clinician Unavailable Breanna Andrade Attending Clinician Unavailable CARMEN MATA Attending Clinician Unavailable Bryn Chamorro Admitting Clinician Unavailable Breanna Andrade Admitting Clinician Unavailable ALMA DOHERTY Admitting Clinician Unavailable Payers Payer Name Policy Type Policy Number Effective Date Expirati on Date Source Problems Condition Name Condition Details Condition Category Status Onset Date Resolution Date Last Treatment Date Treating Clinician Comments Source Encounter to establish care Encounter to establish care Disease Active 09-27 00:00: 00 [facility] Type 2 diabetes mellitus with hyperglyce josé, without long-term current use of insulin Type 2 diabetes mellitus with hyperglyce josé, without long-term current use of insulin Disease Active 09-27 00:00: 00 [facility] 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 Disease Active 09-27 00:00: 00 [facility] BMI 40.0-44.9, adult BMI 40.0-44.9, adult Disease Active 09-27 00:00: 00 [facility] Left-sided weakness Left-sided weakness Disease Active 09-27 00:00: 00 [facility] Essential hypertensi on Essential hypertensi on Disease Active 09-27 00:00: 00 [facility] Allergies, Adverse Reactions, Alerts Allergy Name Allergy Type Status Severity Reaction(s) Onset Date Inactive Date Treating Clinician Comments Source No Known Allergie s DA Active U 10-12 00:00: 00 [facility] LACTOSE DA Active U 12-08 00:00: 00 [facility] No Known Contrast Allergie s DA Active U 12-08 00:00: 00 [facility] No Known Other Allergie s DA Active U 12-08 00:00: 00 [facility] PENICILL IN DA Active U 12-08 00:00: 00 [facility] NO KNOWN ALLERGIE S Drug Class Active [facility] Social History Social Habit Start Date Stop Date Quantity Comments Source [facility] function 2023-09-28 00:00:00 2023-09-28 00:00:00 [facility] Sex assigned at 1955 00:00:00 1955 00:00:00 [facility] Smoking Status Start Date Stop Date Source Tobacco smoking consumption unknown [facility] Medications Ordered Medication Name Filled Medication Name Start Date Stop Date Current Medication? Ordering Clinician Indication Dosage Frequency Signature (SIG) Comments Components Source oxybutynin chloride ER 10 mg tablet,exte nded release 24 hr 08-29 00:00: 00 Yes 1mg Chacorta Jameson Diflucan 100 mg tablet 08-29 00:00: 00 Yes 1mg Chacorta Jameson losartan 25 mg tablet 03-21 00:00: 00 Yes [id number] 25mg Take 1 tablet by mouth in the morning. MUST BE SEEN FOR FURTHER REFILLS [facility] metFORMIN 1,000 mg tablet 03-21 00:00: 00 Yes [id number] 1000mg Take 1 tablet by mouth in the morning and 1 tablet in the evening. Take with meals. MUST BE SEEN FOR FURTHER REFILLS [facility] clopidogreL 75 mg tablet 03-21 00:00: 00 Yes [id number] 75mg Take 1 tablet by mouth every morning. MUST BE SEEN FOR FURTHER REFILLS [facility] atorvastati n 40 mg tablet 03-21 00:00: 00 Yes [id number] 40mg Take 1 tablet by mouth at bedtime. MUST BE SEEN FOR FURTHER REFILLS [facility] clopidogreL 75 mg tablet 09-27 00:00: 00 03-21 00:00 :00 No [id number] 75mg Take 1 tablet by mouth in the morning. [facility] atorvastati n 40 mg tablet 09-27 00:00: 00 03-21 00:00 :00 No [id number] 40mg Take 1 tablet by mouth at bedtime. [facility] losartan 25 mg tablet 09-27 00:00: 00 03-21 00:00 :00 No [id number] 25mg Take 1 tablet by mouth in the morning. [facility] metFORMIN 1,000 mg tablet 09-27 00:00: 00 03-21 00:00 :00 No [id number] 1000mg Take 1 tablet by mouth in the morning and 1 tablet in the evening. Take with meals. [facility] cefpodoxime 100 mg tablet - 00:00: 00 Yes 100mg Take 1 tablet by mouth in the morning and 1 tablet in the evening. [facility] foLIC acid 1 mg tablet - 00:00: 00 Yes 1mg Take 1 tablet by mouth in the morning. [facility] atorvastati n 40 mg tablet 08-31 00:00: 00 09-27 00:00 :00 No 40mg Take 1 tablet by mouth at bedtime. [facility] clopidogreL 75 mg tablet 08-31 00:00: 00 09-27 00:00 :00 No 75mg Take 1 tablet by mouth in the morning. [facility] Vital Signs Vital Name Observation Time Observation Value Comments S ource Systolic blood pressure 2023-09-28 15:24:00 165 mm[Hg] [facility] Diastolic blood pressure 2023-09-28 15:24:00 87 mm[Hg] [facility] Heart rate 2023-09-28 15:23:00 77 /min [facility] Body temperature 2023-09-28 15:23:00 37.06 Ebonie [facility] Respiratory rate 2023-09-28 15:23:00 18 /min [facility] Body height 2023-09-28 15:23:[address] [facility] Body weight 2023-09-28 15:23:[address] [facility] BMI 2023-09-28 15:23:00 44.91 kg/m2 [facility] Oxygen saturation in Arterial blood by Pulse oximetry 2023-09-28 15:23:00 97 /min [facility] BP Diastolic 2024-08-29 14:44:00 82 mm[Hg] Aleksandar Jameson Weight Measured 2024-08-29 14:44:00 251.00 pounds Chacorta Jameson Height Measured 2024-08-29 14:44:00 64.00 inches Chacorta Jameson Body Temperature 2024-08-29 14:44:00 97.60 degrees Chacorta Jameson Heart Rate 2024-08-29 14:44:00 72.00 /min Hayley Jameson Respiratory Rate 2024-08-29 14:44:00 20.00 /min Chacorta Jameson BP Systolic 2024-08-29 14:44:00 122 mm[Hg] Francesco Jameson Procedures Procedure Date / Time Performed Performing Clinicia n Source CBC WITH DIFF 2023-09-28 16:19:00 Clare Gilmore [facility] Encounters Start Date/Time End Date/Time Encounter Type Admission Type Attending Clinicians Care Facility Care Department Encounter ID Source 2024-08-29 14:44:00 2024-08-29 14:44:00 Outpatient SFA S[facility] [id number] Chacorta Jameson 2024-08-29 00:00:00 2024-08-29 00:00:00 Outpatient Visit SFA [id number] Chacorta Jameson 2024-03-21 00:00:00 2024-03-21 09:56:04 Refill Clare Gilmore [facility] 1.840.114 350.1.13.10 [id number] [id number] [facility] 2024-03-05 16:32:00 2024-03-07 11:19:00 Inpatient TR Bryn Chamorro HCAKW CARD [id number] [facility] 2023-11-14 00:00:00 2023-12-18 18:09:28 Patient Secure Msg Doctor Unassigned, Excel [facility] 1.840.114 350.1.13.10 [id number] [id number] [facility] 2023-12-03 13:30:00 2023-12-03 13:30:00 Outpatient R CLARE GILMORE [facility] [id number] [facility] 2023-11-30 14:15:00 2023-11-30 14:15:00 Outpatient R [facility] [id number] [facility] 2023-11-30 11:30:00 2023-11-30 11:30:00 Outpatient R CLARE GILMORE [facility] [id number] [facility] 2023-11-30 09:30:00 2023-11-30 09:30:00 Outpatient R CLARE GILMORE [facility] [id number] [facility] 2023-11-16 10:15:00 2023-11-16 10:15:00 Outpatient R CASEY FINNEY [facility] [id number] [facility] 2023-11-16 09:30:00 2023-11-16 09:30:00 Outpatient R [facility] [id number] [facility] 2023-11-16 00:00:00 2023-11-16 00:00:00 Case Management Thao Spears [facility] 1.840.114 350.1.13.10 4.2.7.2.686 [id number] [facility] 2023-11-02 08:00:00 2023-11-02 09:22:56 Ancillary Visit Beth Pederson Brian A [facility] ([facility]) [id number] [id number] [id number] [id number] [facility] 2023-11-02 00:00:00 2023-11-02 00:00:00 Telephone Clare Gilmore [facility] 1.840.114 350.1.13.10 4.2.7.2.686 [id number] [facility] 2023-10-22 08:40:00 2023-10-22 08:40:00 Outpatient AYDEE FERNANDEZ [facility] [id number] [facility] 2023-10-21 09:00:00 2023-10-21 09:00:00 Outpatient CASEY TRAYLOR [facility] [id number] [facility] 2023-10-11 08:00:00 2023-10-11 08:00:00 Outpatient AYDEE FERNANDEZ [facility] [id number] [facility] 2023-09-28 12:30:00 2023-09-28 12:45:00 Supervisor Home Energy Consultant Visit Lab, Dereck Gilmore [facility] [id number] 350.1.13.10 [id number] [facility] 2023-09-28 09:00:00 2023-09-28 09:56:18 Outpatient Tricia GILMORE [facility] [id number] [facility] 2023-09-28 09:00:00 2023-09-28 09:56:18 Office Visit Mando Clare [facility]?ROBYNMaureen [facility] 2.840.114 350.1.13.10 4.2.7.2.686 [id number] [facility] 2022-10-19 10:39:00 2022-10-19 10:39:00 Outpatient Breanna Healy [facility] [id number] [facility] 2022-05-27 20:15:00 2022-05-29 17:25:00 Inpatient CARMEN JIMENEZ [facility] [address] NE Results Test Description Test Time Test Comments Results Result Co mments Source CBC W/AUTO [id number] 05:35:00* Test Item Value Reference Range Interpretation Comme nts WHITE BLOOD CELL (test code = WBC) 6.5 x10 3/uL 5.0-12.0 N RED BLOOD CELL (test code = RBC) 4.29 x10 6/uL 4.20-5.40 N HEMOGLOBIN (test code = HGB) 11.9 g/dL 12.0-16.0 L HEMATOCRIT (test code = HCT) 38.2 % 36.0-46.0 N MEAN CELL VOLUME (test code = MCV) 89 fL 81-99 N MEAN CELL HGB (test code = MCH) 27.7 pg 27-31 N MEAN CELL HGB CONCENTRATION (test code = MCHC) 31.2 g/dL 33-37 L RED CELL DISTRIBUTION WIDTH (test code = RDW) 13.2 % 11.5-15.5 N PLATELET COUNT (test code = PLT) 242 x10 3/uL 130-400 N MEAN PLATELET VOLUME (test c ode = MPV) 11.5 fL 9.4-16.4 N NEUTROPHIL % (test code = NT%) 59.5 % 43-65 N IMMATURE GRANULOCYTE % (test code = IG%) 0.5 % 0.0-2.0 N LYMPHOCYTE % (test code = LY%) 19.4 % 20.5-45.5 L MONOCYTE % (test code = MO%) 15.9 % 5.5-11.7 H EOSINOPHIL % (test code = EO%) 4.2 % 0.9-2.9 H BASOPHIL % (test code = BA%) 0.5 % 0.2-1.0 N NUCLEATED RBC % (test code = NRBC%) 0.0 % 0-1.0 N NEUTROPHIL # (test code = NT#) 3.87 x10 3/uL 2.2-4.8 N IMMATURE GRANULOCYTE # (test code = IG#) 0.03 x10 3/uL 0-0.03 N LYMPHOCYTE # (test code = LY#) 1.26 x10 3/uL 1.3-2.9 L MONOCYTE # (test code = MO#) 1.03 x10 3/uL 0.3-0.8 H EOSINOPHIL # (test code = EO#) 0.27 x10 3/uL 0.0-0.2 H BASOPHIL # (test code = BA#) 0.03 x10 3/uL 0.0-0.1 N [id number] 20:13:00* Test Item Value Reference Range Interpretation Comme nts GLUBED (test code = GLUBED) 198 MG/DL 74-106 H [id number] 15:45:00* Test Item Value Reference Range Interpretation Comme nts GLUBED (test code = GLUBED) 198 MG/DL 74-106 H [id number] 11:24:00* Test Item Value Reference Range Interpretation Comme nts GLUBED (test code = GLUBED) 174 MG/DL 74-106 H [id number] 06:50:00* Test Item Value Reference Range Interpretation Comme nts GLUBED (test code = GLUBED) 138 MG/DL 74-106 H [id number] 06:04:00* Test Item Value Reference Range Interpretation Comme nts GLUBED (test code = GLUBED) 146 MG/DL 74-106 H CBC W/AUTO [id number] 04:29:00* Test Item Value Reference Range Interpretation Comme nts WHITE BLOOD CELL (test code = WBC) 9.2 x10 3/uL 5.0-12.0 N RED BLOOD CELL (test code = RBC) 4.50 x10 6/uL 4.20-5.40 N HEMOGLOBIN (test code = HGB) 12.7 g/dL 12.0-16.0 N HEMATOCRIT (test code = HCT) 40.1 % 36.0-46.0 N MEAN CELL VOLUME (test code = MCV) 89 fL 81-99 N MEAN CELL HGB (test code = MCH) 28.2 pg 27-31 N MEAN CELL HGB CONCENTRATION (test code = MCHC) 31.7 g/dL 33-37 L RED CELL DISTRIBUTION WIDTH (test code = RDW) 13.4 % 11.5-15.5 N PLATELET COUNT (test code = PLT) 259 x10 3/uL 130-400 N MEAN PLATELET VOLUME (test c ode = MPV) 11.5 fL 9.4-16.4 N NEUTROPHIL % (test code = NT%) 69.5 % 43-65 H IMMATURE GRANULOCYTE % (test code = IG%) 0.5 % 0.0-2.0 N LYMPHOCYTE % (test code = LY%) 15.3 % 20.5-45.5 L MONOCYTE % (test code = MO%) 12.3 % 5.5-11.7 H EOSINOPHIL % (test code = EO%) 1.6 % 0.9-2.9 N BASOPHIL % (test code = BA%) 0.8 % 0.2-1.0 N NUCLEATED RBC % (test code = NRBC%) 0.0 % 0-1.0 N NEUTROPHIL # (test code = NT#) 6.41 x10 3/uL 2.2-4.8 H IMMATURE GRANULOCYTE # (test code = IG#) 0.05 x10 3/uL 0-0.03 H LYMPHOCYTE # (test code = LY#) 1.41 x10 3/uL 1.3-2.9 N MONOCYTE # (test code = MO#) 1.13 x10 3/uL 0.3-0.8 H EOSINOPHIL # (test code = EO#) 0.15 x10 3/uL 0.0-0.2 N BASOPHIL # (test code = BA#) 0.07 x10 3/uL 0.0-0.1 N [id number] 20:26:00* Test Item Value Reference Range Interpretation Comme nts GLUBED (test code = GLUBED) 173 MG/DL 74-106 H [id number] 16:45:00* Test Item Value Reference Range Interpretation Comme nts GLUBED (test code = GLUBED) 143 MG/DL 74-106 H LIVER FUNCTION [id number] 11:58:00* Test Item Value Reference Range Interpretation Comme nts TOTAL PROTEIN (test code = PROT) 6.8 g/dL 6.3-8.2 N "A positive bias may occur for patients taking Eltrombopag(a bone marrow stimulant used to treat thrombocytopenia andaplastic anemia)." ALBUMIN (test code = ALB) 3.5 g/dL 3.5-5.0 N BILIRUBIN TOTAL (test code = BILT) 0.4 mg/dL 0.2-1.3 N "A positive b ias may occur for patients taking Eltrombopag(a bone marrow stimulant used to treat thrombocytopenia andaplastic anemia)." BILIRUBIN CONJUGATED (test code = BILCON) 0 mg/dL 0-0.3 N "A positive bias may occur for patients taking Eltrombopag(a bone marrow stimulant used to treat thrombocytopenia andaplastic anemia)." CONJUGATED BILIRUBIN IS THE REPLACEMENT ASSAY FOR DIRECTBILIRUBIN. BILIRUBIN UNCONJUGATED (test code = BILUNC) 0.4 mg/dL 0-1.1 N SGOT/AST (test code = AST) 58 U/L 15-46 H SGPT/ALT (test code = ALT) 20 U/L 0-34 N ALKALINE PHOSPHATASE (test code = ALKP) 89 U/L 38-126 N ADD ON TEST? [id number] 11:54:00* Test Item Value Reference Range Interpretation Comme nts GLUBED (test code = GLUBED) 184 MG/DL 74-106 H LACTIC [id number] 11:48:00* Test Item Value Reference Range Interpretation Comme nts LACTIC ACID (test code = LACT) 0.9 mmol/L 0.7-2.0 N VITAMIN [id number] 09:19:00* Test Item Value Reference Range Interpretation Comme nts VITAMIN B12 (test code = VITB12) 453 pg/mL 239-931 N A positive bias may occur for patients taking BIOTINsupplements. HGBA1C - GLYCOSYLATED [id number] 07:57:00* Test Item Value Reference Range Interpretation Comme nts GLYCOSYLATED HEMOGLOBIN (HA1C) (test code = GLYHGB) 7.3 % 0-5.9 H Current francisco delines recommend a treatment goal of <7% fordiabetic patients. A1c may be overestimated in diabeticpatients exhibiting poor control and who are alsoheterozygous or homozygous for HgbS or HgbC. Totalglycohemoglobin is a better indicator of diabetic control inpatients with these hemoglobin variants. URINALYSIS [id number] 06:14:00* Test Item Value Reference Range Interpretation Comme nts UA COLOR (test code = COLU) Light-Yellow Yellow UA APPEARANCE (test code = APPU) Turbid Clear A UA GLUCOSE DIPSTICK (test code = DGLUU) Normal Negative UA BILIRUBIN DIPSTICK (test code = BILU) Negative Negative UA KETONE DIPSTICK (test code = KETU) Negative mg/dL Negative UA SPECIFIC GRAVITY (test code = SGU) 1.019 <1.030 UA BLOOD DIPSTICK (test code = SHARON) TRACE Negative UA PH DIPSTICK (test code = TREVON) 6.5 5.0-8.0 UA PROTEIN DIPSTICK (test code = PROU) TRACE mg/dL Negative UA UROBILINOGEN DIPSTICK (test code = URO) Negative mg/dL Negative UA NITRITE DIPSTICK (test code = FLORENCE) 2+ Negative A UA LEUKOCYTE ESTERASE DIPSTICK (test code = LEUU) 1+ Negative A UA WBC (test code = WBCU) 6-10 /HPF See_Comment A [Automated message] The system which generated this result transmitted reference range: <4-5. The reference range was not used to interpret this result as normal/abnormal. UA RBC (test code = RBCU) 4-5 /HPF See_Comment A [Automated message] The system which generated this result transmitted reference range: <4-5. The reference range was not used to interpret this result as normal/abnormal. UA BACTERIA (test code = BACU) Rare /HPF None-Rare UA SQUAMOUS CELLS (test code = SQU) 0-5 (RARE) /HPF See_Comment [Automated message] The system which generated this result transmitted reference range: 0-5 (RARE). The reference range was not used to interpret this result as normal/abnormal. UA MUCUS (test code = MUCU) Rare /LPF See_Comment A [Automated message] The system which generated this result transmitted reference range: <Rare. The reference range was not used to interpret this result as normal/abnormal. [id number] 06:12:00* Test Item Value Reference Range Interpretation Comme nts GLUBED (test code = GLUBED) 149 MG/DL 74-106 H BASIC METABOLIC [id number] 02:11:00* Test Item Value Reference Range Interpretation Comme nts SODIUM (test code = NA) 136 mmol/L 137-145 L POTASSIUM (test code = K) 4.0 mmol/L 3.4-5.0 N CHLORIDE (test code = CL) 109 mmol/L 98-107 H CARBON DIOXIDE (test code = CO2) 24 mmol/L 22-30 N ANION GAP (test code = GAP) 7 mmol/L 10-20 L GLUCOSE (test code = GLU) 159 mg/dL 74-106 H BLOOD UREA NITROGEN (test code = BUN) 24 mg/dL 7-17 H GLOMERULAR FILTRATION RATE (test code = GFR) 80 mL/min The Glomerular Filtration Rate is a calculated parameterbased on serum Creatinine, patient age and sex. GFR valuesless than 60 mL/min/1.73 square meters are indicative ofChronic Kidney Disease. Values less than 15 mL/min/1.73square meters indicate Kidney failure. The calculation forGFR is based on the CKD-EPI (202) calculation. This formulais race indifferent and is the recommended formula for GFRby the National Kidney Foundation for Adults.The GFR will not calculate if the sex is unknown or if thepatient's age is <18 years. CREATININE (test code = CREAT) 0.8 mg/dL 0.5-1.0 N CALCIUM (test code = CA) 8.9 mg/dL 8.4-10.2 N INDEX HEMOLYSIS (test code = HEMINDEX) < 15 Index/DL 0-100 N NT PRO-BRAIN NATRIURETIC [id number] 02:11:00* Test Item Value Reference Range Interpretation Comme nts NT PRO-BRAIN NATRIURETIC PEPTI (test code = PROBNP) 233 pg/mL See_Comment H INTERPRETATION O F RESULTS Results of this test should be used in accordance with the appropriate clinical guidelines and in conjunction with clinical presentation and other diagnostic tests. Clinical guidelines recommend using natriuretic peptides in both Emergency Department (ED) and outpatient settings for diagnosis or exclusion of heart failure (HF). The performance of the VITROS NT-proBNP II test was evaluated separately in each of these settings using published age-independent and age-dependent cutoffs. EMERGENCY DEPARTMENT SETTINGS/INPATIENT: For patients presenting to the ED settings with acute or worsening dyspnea and clinical suspicion of HF, the VITROS NT-proBNP II test results should be interpreted as indicatedin the table below. ========Results(pg/mL) Age Group *Interpretation <300 All *Negative: Heart Failure Unlikely >=450 22-<50 * POSITIVE: Heart Failure >=900 50-<75 Likely >=1800 >=75 --------OUTPATIENT SETTINGS: In the outpatient settings, the optimal use of natriuretic peptides is to exclude HF. Therefore, a lower rule-out cutoff which increases sensitivity and negative predictive value is needed, as patients can present with limited, less acute HF symptoms. For ambulatory patients presenting to outpatient facilitieswith clinical suspicion of HF not previously diagnosed andat least one sign, symptom or risk factor for HF, the VITROSNT-proBNP II test results should be interpreted as indicatedin the table below: Results(pg/mL) Age Group *Interpretation <125 ALL * Negative - Heart Failure Unlikely >=125 ALL * Consider Heart Failure as well as other causes of NT-ProBNP elvation. The following interferents causes a bias at concentrationslisted in procedure. -Cefoxitin sodium -Sodium Azide [Automated message] The system which generated this result transmitted reference range: <20.0-221. The reference range was not used to interpret this result as normal/abnormal. [id number] 02:11:00* Test Item Value Reference Range Interpretation Comme nts TROPONIN-I (test code = TROPI) < 0.012 ng/mL 0.012-0.033 L Please be advised of the updated reference ranges for the new Chemistry instrumentation. VITROS TROPONIN I CRITERIANORMAL PATIENT W/O CIRCULATING TNI: 0.012-0.033 ng/mLAMI DIAGNOSTIC CUTOFF: >/= 0.120 ng/mL~~~~~~~~~~~~~~~~~~~~~~ ~~~~~~~~~~~~~~~~~~~~~~~~~~~ ~~~~~~~~~~The use of serial sampling and testing protocol is arecommended practice.An elevated troponin level alone is often not sufficient fordiagnosis of myocardial infarction. Troponin results obtained by different assays may vary.Evaluation of the extent of myocardial damage based onincrease of troponin would be valid only if similarmethodology is used.~~~~~~~~~~~~~~~~~~~~~~ ~~~~~~~~~~~~~~~~~~~~~~~~~~~ ~~~~~~~~~~ A POSITIVE BIAS MAY OCCUR FOR PATIENTS TAKING BIOTIN SUPPLEMENTS~~~~~~~~~~~~~~~~ ~~~~~~~~~~~~~~~~~~~~~~~~~~~ ~~~~~~~~~~~~~~~~ [id number] 02:11:00* Test Item Value Reference Range Interpretation Comme nts ALCOHOL (test code = ALC) < 10 mg/dL <10 ~~~~~~~~~~~~~~~~ ~~~~~~ ~~~~~~~~~~~~~~~~~~~~~~ ~~~~~~ RESULTS ARE TO BE USED FOR MEDICAL PURPOSES ONLY.FOR LEGAL PURPOSES THE SPECIMEN MUST BE COLLECTED BY A CHAINOF CUSTODY. LEGAL TESTING IS NOT PERFORMED BY THIS FACILITY. ~~~~~~~~~~~~~~~~~~~~~~ ~~~~~~~~~~~~~~~~~~~~~~ ~~~~~~ CBC W/AUTO [id number] 01:28:00* Test Item Value Reference Range Interpretation Comme nts WHITE BLOOD CELL (test code = WBC) 12.9 x10 3/uL 5.0-12.0 H RED BLOOD CELL (test code = RBC) 4.43 x10 6/uL 4.20-5.40 N HEMOGLOBIN (test code = HGB) 12.4 g/dL 12.0-16.0 N HEMATOCRIT (test code = HCT) 38.7 % 36.0-46.0 N MEAN CELL VOLUME (test code = MCV) 87 fL 81-99 N MEAN CELL HGB (test code = MCH) 28.0 pg 27-31 N MEAN CELL HGB CONCENTRATION (test code = MCHC) 32.0 g/dL 33-37 L RED CELL DISTRIBUTION WIDTH (test code = RDW) 13.4 % 11.5-15.5 N PLATELET COUNT (test code = PLT) 264 x10 3/uL 130-400 N MEAN PLATELET VOLUME (test code = MPV) 11.6 fL 9.4-16.4 N NEUTROPHIL % (test code = NT%) 80.7 % 43-65 H IMMATURE GRANULOCYTE % (test code = IG%) 0.5 % 0.0-2.0 N LYMPHOCYTE % (test code = LY%) 8.3 % 20.5-45.5 L MONOCYTE % (test code = MO%) 9.8 % 5.5-11.7 N EOSINOPHIL % (test code = EO%) 0.2 % 0.9-2.9 L BASOPHIL % (test code = BA%) 0.5 % 0.2-1.0 N NUCLEATED RBC % (test code = NRBC%) 0.0 % 0-1.0 N NEUTROPHIL # (test code = NT#) 10.44 x10 3/uL 2.2-4.8 H IMMATURE GRANULOCYTE # (test code = IG#) 0.07 x10 3/uL 0-0.03 H LYMPHOCYTE # (test code = LY#) 1.07 x10 3/uL 1.3-2.9 L MONOCYTE # (test code = MO#) 1.27 x10 3/uL 0.3-0.8 H EOSINOPHIL # (test code = EO#) 0.03 x10 3/uL 0.0-0.2 N BASOPHIL # (test code = BA#) 0.06 x10 3/uL 0.0-0.1 N Cbc with [id number] 22:08:19* Test Item Value Reference Range Interpretation Comme nts WBC (test code = 6690-2) 10.06 4.30-11.10 RBC (test code = 789-8) 5.15 3.93-5.25 HGB (test code = 718-7) 14.2 g/dL 11.6-15.0 HCT (test code = 4544-3) 45.8 % 35.7-45.2 H MCV (test code = 787-2) 88.9 fL 80.6-95.5 MCH (test code = 785-6) 27.6 pg 25.9-32.8 MCHC (test code = 786-4) 31.0 g/dL 31.6-35.1 L RDW-SD (test code = 51196-7) 43.0 fL 39.0-49.9 RDW-CV (test code = 788-0) 13.2 % 12.0-15.5 PLT (test code = 777-3) 331 166-358 MPV (test code = 80752-9) 12.3 fL 9.5-12.9 NRBC/100 WBC (test code = 9042750036) 0.0 0.0-10.0 NRBC x10^3 (test code = 5416830184) See_Comment [Automated messa ge] The system which generated this result transmitted reference range: 10*3/?L. The reference range was not used to interpret this result as normal/abnormal. GRAN MAT (NEUT) % (test code = 770-8) 66.1 % IMM GRAN % (test code = 5816324086) 0.60 % LYMPH % (test code = 736-9) 22.6 % MONO % (test code = 5905-5) 7.9 % EOS % (test code = 713-8) 2.0 % BASO % (test code = 706-2) 0.8 % GRAN MAT x10^3(ANC) (test code = 1093193803) 6.66 10*3/uL 1.88-7.09 IMM GRAN x10^3 (test code = 2377887914) 0.06 10*3/uL 0.00-0.06 LYMPH x10^3 (test code = 731-0) 2.27 10*3/uL 1.32-3.29 MONO x10^3 (test code = 742-7) 0.79 10*3/uL 0.33-0.92 EOS x10^3 (test code = 711-2) 0.20 10*3/uL 0.03-0.39 BASO x10^3 (test code = 704-7) 0.08 10*3/uL 0.01-0.07 H Lab Interpretation (test code = 10388-8) [facility] Test Item Value Reference Range Interpretation Comme nts GLUBED (test code = GLUBED) 155 MG/DL 74-106 H [id number] 14:12:00* Test Item Value Reference Range Interpretation Comme nts GLUBED (test code = GLUBED) 194 MG/DL 74-106 H BASIC METABOLIC [id number] 12:31:00* Test Item Value Reference Range Interpretation Comme nts SODIUM (test code = NA) 141 mmol/L 137-145 N POTASSIUM (test code = K) 3.9 mmol/L 3.4-5.0 N CHLORIDE (test code = CL) 102 mmol/L 98-107 N CARBON DIOXIDE (test code = CO2) 30 mmol/L 22-30 N ANION GAP (test code = GAP) 13 GLUCOSE (test code = GLU) 241 mg/dL 74-106 H BLOOD UREA NITROGEN (test code = BUN) 18 mg/dL 7-17 H GLOMERULAR FILTRATION RATE (test code = GFR) 99 mL/min The Glomerular Filtration Rate is a calculated parameterbased on serum Creatinine, patient age and sex. GFR valuesless than 60 mL/min/1.73 square meters are indicative ofChronic Kidney Disease. Values less than 15 mL/min/1.73square meters indicate Kidney failure. The calculation forGFR is based on the CKD-EPI (2021) calculation. This formulais race indifferent and is the recommended formula for GFRby the National Kidney Foundation for Adults.The GFR will not calculate if the sex is unknown or if thepatient's age is <18 years. CREATININE (test code = CREAT) 0.6 mg/dL 0.5-1.0 N CALCIUM (test code = CA) 8.8 mg/dL 8.4-10.2 N INDEX HEMOLYSIS (test code = HEMINDEX) < 15 Index/DL 0-100 N - XR CHEST 2 [id number] 12:27:00 [facility] WOODName: AYLEEN SALAS : 1955 Sex: F FAX: Breanna Andrade Jr, MD [place]: St: PRE Name: AYLEEN SALAS [facility] : 1955 Age/S: 66/F [address] Unit #: [id number] Loc: [place] [address] Phys: Breanna Andrade Jr, MD Acct: [id number] Dis Date: Status: PRE [facility] PHONE #: [phone] Exam Date: 10/15/2022 1220 FAX #: [phone] Reason: PREOP EXAMS: CPT CODE: [id number] XR CHEST 2 V 24652 EXAM: - XR CHEST 2 V COMPARISON: None available at the time of interpretation. LOCATION: HISTORY: PREOP FINDINGS: 2 views of the chest. Noindwelling lines or tubes. No pneumothorax. The lungs are clear without significant effusions. The mediastinal contours are unremarkable. No acute osseous findings are present. IMPRESSION: No acute cardiopulmonary abnormality. at 1227 Reported and signed by: Pablo Carolina MD CC: Breanna Andrade Jr, MD Technologist: SULTANA PARKER Trnwvrd Date/Time/By: 10/15/2022 (1227) : By: AmariHV2 PAGE 1 Signed Report FAX: Breanna Andrade Jr, MD [place]: St: PRE -- Name:AYLEEN SALAS [facility] [place] : 1955 Age/S: 66/F [address] Unit #: [id number] Loc: [place] [address] Phys: Breanna Andrade Jr, MD Acct: [id number] Dis Date: Status: PRE SDC PHONE #: [phone] Exam Date: 10/15/2022 1220 FAX #: [phone] Reason: PREOP EXAMS: CPT CODE: [id number] XR CHEST 2 V 65602 (Continued) Orig Print D/T: S: 10/15/2022 (1230) PAGE 2 Signed ReportPROTHROMBIN [id number] 12:18:00* Test Item Value Reference Range Interpretation Comme nts PROTHROMBIN TIME PATIENT (test code = PTP) 10.6 SECONDS 9.2-12.1 N INTERNATIONAL NORMAL RATIO (test code = INR) 1.0 The INR is to be used only for monitoring ORAL ANTICOAGULANTTHERAPY. Indication INR Value1. Prophylaxis/treatment of: Venous Thrombosis, Pulmonary Embolism 2.0 - 3.02. Prevention of systemic embolism from: Tissue heart valves 2.0 - 3.0 Acute myocardial infarction (to present systemic embolism)* 2.0 - 3.0 Valvular heart disease 2.0 - 3.0 Atrial fibrillation 2.0 - 3.03. Mechanical prosthetic valves (high risk) 2.5 - 3.5 * If oral anticoagulant therapy is elected to preventrecurrent myocardial infarction, an INR of 2.5-3.5 isrecommended, consistent with Food and Drug Administrationrecommen dations. THROMBOPLASTIN TIME [id number] 12:18:00* Test Item Value Reference Range Interpretation Comme nts THROMBOPLASTIN TIME PARTIAL (test code = PTT) 27.9 SECONDS 23.4-37.0 N Therapeutic Rang e for Heparin EFFECTIVE 02/01/13 Heparin IU/mL aPTT Seconds0.3 64.30.7 88.8 CBC W/AUTO [id number] 11:53:00* Test Item Value Reference Range Interpretation Comme nts WHITE BLOOD CELL (test code = WBC) 11.3 x10 3/uL 5.0-12.0 N RED BLOOD CELL (test code = RBC) 4.79 x10 6/uL 4.20-5.40 N HEMOGLOBIN (test code = HGB) 13.3 g/dL 12.0-16.0 N HEMATOCRIT (test code = HCT) 42.5 % 36.0-46.0 N MEAN CELL VOLUME (test code = MCV) 89 fL 81-99 N MEAN CELL HGB (test code = MCH) 27.8 pg 27-31 N MEAN CELL HGB CONCENTRATION (test code = MCHC) 31.3 g/dL 33-37 L RED CELL DISTRIBUTION WIDTH (test code = RDW) 12.4 % 11.5-15.5 N PLATELET COUNT (test code = PLT) 291 x10 3/uL 130-400 N MEAN PLATELET VOLUME (test c ode = MPV) 11.6 fL 9.4-16.4 N NEUTROPHIL % (test code = NT%) 68.2 % 43-65 H IMMATURE GRANULOCYTE % (test code = IG%) 0.6 % 0.0-2.0 N LYMPHOCYTE % (test code = LY%) 22.0 % 20.5-45.5 N MONOCYTE % (test code = MO%) 7.8 % 5.5-11.7 N EOSINOPHIL % (test code = EO%) 1.0 % 0.9-2.9 N BASOPHIL % (test code = BA%) 0.4 % 0.2-1.0 N NUCLEATED RBC % (test code = NRBC%) 0.0 % 0-1.0 N NEUTROPHIL # (test code = NT#) 7.73 x10 3/uL 2.2-4.8 H IMMATURE GRANULOCYTE # (test code = IG#) 0.07 x10 3/uL 0-0.03 H LYMPHOCYTE # (test code = LY#) 2.49 x10 3/uL 1.3-2.9 N MONOCYTE # (test code = MO#) 0.88 x10 3/uL 0.3-0.8 H EOSINOPHIL # (test code = EO#) 0.11 x10 3/uL 0.0-0.2 N BASOPHIL # (test code = BA#) 0.05 x10 3/uL 0.0-0.1 N Notes Date/Time Note Provider Source [facility]2024-08-27 08:52:03 Images from the original note were not included. Notes: Encounter to establish care (primary encounter diagnosis) Comment: acute stable Plan: RTO in 1-2 months Last Refilled: Name from pharmacy: LOSARTAN POTASSIUM 25 MG TAB Will file in chart as: LOSARTAN 25 mg tablet Sig: TAKE 1 TABLET BY MOUTH EVERY DAY IN THE MORNING Disp: 90 tablet Refills: 1 Start: 03/21/2024 Class: eRX For: Cerebrovascular accident (CVA) due to thrombosis of cerebral artery, Essential hypertension Last ordered: 5 months ago (09/28/2023) by KIRILL Mcallister Last refill: 12/26/2023 Rx #: [id number] Cardiovascular: Angiotensin Receptor Blockers Oxszdd4903/21/2024 12:23 AM Protocol Details Valid encounter within last 12 months K in normal range and within 360 days Cr in normal range and within 360 days Name from pharmacy: METFORMIN HCL 1,000 MG TABLET Will file in chart as: METFORMIN 1,000 mg tablet Sig: TAKE 1 TABLET BY MOUTH IN THE MORNING AND IN THE EVENING WITH MEALS Disp: 180 tablet Refills: 1 Start: 03/21/2024 Class: eRX For: Type 2 diabetes mellitus with hyperglycemia, without long-term current use of insulin Last ordered: 5 months ago (09/28/2023) by KIRILL Mcallister Last refill: 12/26/2023 Rx #: [id number] Endocrinology: Diabetes - Biguanides Hvgyjp0003/21/2024 12:23 AM Protocol Details HBA1C within 180 days Valid encounter within last 12 months Cr is between 0 and 1.3 and within 360 days Name from pharmacy: CLOPIDOGREL 75 MG TABLET Will file in chart as: CLOPIDOGREL 75 mg tablet Sig: TAKE 1 TABLET BY MOUTH EVERY DAY IN THE MORNING Disp: 90 tablet Refills: 1 Start: 03/21/2024 Class: eRX For: Cerebrovascular accident (CVA) due to thrombosis of cerebral artery Last ordered: 5 months ago (09/28/2023) by KIRILL Mcallister Last refill: 12/26/2023 Rx #: [id number] Anti-Platelets Rwtdwy7903/21/2024 12:23 AM Protocol Details HCT in normal range and within 360 days Valid encounter within last 12 months HGB in normal range and within 360 days PLT in normal range and within 360 days RBC in normal range and within 360 days Name from pharmacy: ATORVASTATIN 40 MG TABLET Will file in chart as: ATORVASTATIN 40 mg tablet Sig: TAKE 1 TABLET BY MOUTH EVERYDAY AT BEDTIME Disp: 90 tablet Refills: 1 Start: 03/21/2024 Class: eRX For: Cerebrovascular accident (CVA) due to thrombosis of cerebral artery Last ordered: 5 months ago (09/28/2023) by KRIILL Mcallister Last refill: 12/26/2023 Rx #: [id number] Cardiovascular: Antilipid - HMG-CoA Reductase Inhibitors Gbdtsx4803/21/2024 12:23 AM Protocol Details Total Cholesterol within 360 days LDL within 360 days HDL within 360 days Triglycerides within 360 days Valid encounter within last 12 months AST in normal range and within 360 days ALT in normal range and within 360 days To be filled at: [facility]/pharmacy #[id number] [place], [place] - [address] AT [facility] Recent Visits Date Type Provider Dept 09/28/23 Office Visit Clare Gilmore FNP Ang-Db Cbc Fam Med Showing recent visits within past 540 days with a meds authorizing provider and meeting all other requirements Future Appointments No visits were found meeting these conditions. Showing future appointments within next 150 days with a meds authorizing provider and meeting all other requirements Jo Manjarrez [facility] StanlyZvsdyf8837-74-17 [id number]:37:[id number] [facility] [address] [place] [address] PATIENT NAME: AYLEEN SALAS ADMIT DATE: 03/05/24 ACCOUNT NO: [id number] ROOM NO: [id number] AGE: 68 REPORT TYPE: 360 - QUERY RESPONSE DOCUMENT SEX: F ADMITTING PHYSICIAN:Bryn Chamorro MD ATTENDING PHYSICIAN:Bryn Chamorro MD Provider Query QUERY TEXT: Condition General 360MD Query related questions should be directed to: Marga ESTES RN [email or web address] Based on your clinical judgment, can you determine the current known or suspected condition that is represented by the clinical indicators listed below. Morbid obesity due to excess calories Morbid obesity with alveolar hypoventilation Obesity Overweight Incorrect data Other more appropriate diagnosis. Please specify other diagnosis. The patient's Clinical Indicators include: . VS Record 03/04/24 BMI 50.4 Height 62? Weight 125.0kg H and P 03/05/24 Diabetes HLD HTN PT Notes 03/05/25 difficulty reaching across midline due to body habitus hip flexion mildly limited by obesity Soft tissues: This study is severely limited by patient's large body habitus. - Chest XRay 03/07/24 Options provided: -- Respond - Create new note now -- Dismiss - Not applicable / Not valid -- Dismiss - Clinically unable to determine / Unknown -- Assign to another provider QUERY RESPONSE: Morbid obesity due to excess calories. Query created by: Ranjith Stephens on 03/07/2024 11:46 AM at 1337 PATIENT NAME: AYLEEN SALAS ELIZ 07:26:[id number] [facility] [address] [facility]. [address] [place] [address] PATIENT NAME: AYLEEN SALAS ADMIT DATE: 03/05/24 ACCOUNT NO: [id number] ROOM NO: [facility] AGE: 68 REPORT TYPE: eECHOCARDIOGRAM REPORT. SEX: F ADMITTING PHYSICIAN:Avril Dunne DO ATTENDING PHYSICIAN:Avril Dunne DO *[facility]* [address] [place] [address] Transthoracic Echocardiogram Patient: Ayleen Salasdee Study Date: 03/05/2024 BP: URN: [id number] Location: : 1955 Age: 68 Gender: F Height: 62 in / 157.5 cm Weight: 275 lb / 124.7 kg BMI/BSA: 50.3 kg/m 2 / 2.42 m 2 *Ordering Physician: * Earl Gray R3 *Interpreting Physician: * Manas Velasquez MD Indications: CVA/TIA. Study data: Transthoracic echocardiogram. Complete 2D, complete spectral Doppler, and color Doppler. Patient status: Inpatient. Study status: Routine. Findings Left ventricle: The cavity size is normal. Moderate concentric LV hypertrophy. Systolic function is normal. The estimated ejection fraction is 65-69%. Wall motion is normal; there are no regional wall motion abnormalities. Grade I diastolic dysfunction. Right ventricle: The cavity size is normal. Systolic function is normal. Left atrium: The atrium is mildly dilated. Right atrium: The atrium is normal in size. Atrial septum: Color Doppler and/or agitated saline contrast study shows no PATIENT NAME: AYLEEN SALAS shunt. Aorta: Aortic root: The root is normal-sized. Aortic valve: The valve is trileaflet. The leaflets are mildly thickened and mildly calcified. Aortic sclerosis without significant stenosis. There is no regurgitation. Mitral valve: The annulus is mildly calcified. There is no evidence of stenosis. There is trace regurgitation. Tricuspid valve: The valve is structurally normal. There is no regurgitation. Pulmonic valve: The valve is structurally normal. There is no regurgitation. Pericardium: There is no pericardial effusion. Systemic veins: Inferior vena cava: The IVC is mildly dilated. Respirophasic diameter changes are blunted (< 50%). Measurements Left ventricle Value Ref NOEL, LAX 4.4 cm 3.8 - 5.2 ESD, LAX 2.7 cm 2.2 - 3.5 FS, LAX 39 % 27 - 45 IVS, ED 1.4 cm 0.6 - 0.9 IVS, ES 1.7 cm --------- PW, ED 1.6 cm 0.6 - 0.9 PW, ES 2.2 cm --------- IVS/PW, ED 0.89 --------- E', lat anne, TDI 7.2 cm/sec >=10.0 E/e', lat anne, TDI 13 <=13 E', med anne, TDI 8.4 cm/sec >=7.0 E/e', med anne, TDI 11 --------- E', avg, TDI 7.8 cm/sec --------- E/e', avg, TDI 12 <=14 LVOT Value Ref Diam, S 2.16 cm --------- Area 3.7 cm 2 --------- Peak omer, S 1.15 m/sec --------- Mean omer, S 0.85 m/sec --------- VTI, S 24.2 cm --------- Peak grad, S 5 mm Hg --------- Mean grad, S 3 mm Hg --------- SV 89 ml --------- SV/bsa 37 ml/m 2 --------- Right ventricle Value Ref NOEL, LAX 3.5 cm --------- Left atrium Value Ref Vol/bsa, S 34 ml/m 2 16 - 34 Vol/bsa, ES, 1-p A4C 29 ml/m 2 11 - 40 Vol, ES, 2-p 82 ml --------- Vol/bsa, ES, 2-p 34 ml/m 2 16 - 34 PATIENT NAME: AYLEEN SALAS Aortic valve Value Ref Peak v, S 2 m/sec --------- Mean v, S 1.46 m/sec --------- VTI, S 44.7 cm --------- Mean grad, S 9 mm Hg --------- Peak grad, S 16.2 mm Hg --------- LVOT/AV, VTI ratio 0.54 --------- SANJU, VTI 2.19 cm 2 --------- LVOT/AV, Vpeak ratio 0.57 --------- SANJU, Vmax 2.06 cm 2 --------- Mitral valve Value Ref Peak E 0.94 m/sec --------- Peak A 1.04 m/sec --------- Decel time 236 ms --------- Peak grad, D 3.5 mm Hg --------- Peak E/A ratio 0.9 --------- Aortic root Value Ref Root diam 3.1 cm 3.0 - 4.4 Ascending aorta Value Ref AAo AP diam, S 3.5 cm --------- Conclusions Summary: 1. Left ventricle: The cavity size is normal. Moderate concentric LV hypertrophy. Systolic function is normal. The estimated ejection fraction is 65-69%. Wall motion is normal; there are no regional wall motion abnormalities. Grade I diastolic dysfunction. 2. Left atrium: The atrium is mildly dilated. 3. Atrial septum: Color Doppler and/or agitated saline contrast study shows no shunt. 4. Aortic valve: The valve is trileaflet. The leaflets are mildly thickened and mildly calcified. Aortic sclerosis without significant stenosis. 5. Mitral valve: The annulus is mildly calcified. 6. Insufficient TR jet to estimate PA pressure. Electronically signed by Manas Velasquez MD 03/06/2024 07:26 at 0726 PATIENT NAME: AYLEEN SALAS 06:48:[address] [facility] Hospitalist Progress Note REPORT#:[id number] REPORT STATUS: Signed REPORT INITIALIZATION DATE:03/06/24 TIME: 647 PATIENT: AYLEEN SALAS UNIT #: [id number] ROOM/BED: [address] : [birth year] AGE: 68 SEX: F ATTEND: Bryn Chamorro MD ADM AUTHOR: Steffen Boyce MD R2 REPT SERVICE DT/TIME: 03/06/24 0648 * ALL edits or amendments must be made on the electronic/computer document * Steffen Boyce 03/06/24 0648: Subjective Chief complaint: Leg weakness HPI: Patient seen and examined in AM. Patient states that she no longer has dysuria or burning with urination. She also denies any lower abdominal pain. Patient denies any chest pain, shortness of breath. Urine cultures growing gram- negative rods, we will wait for antibiotic sensitivities and discharge likely tomorrow. Review of Systems Constitutional: Denies: chills, fever. Respiratory: Denies: SOB, wheezing. Cardiovascular: Denies: chest pain. GI: Denies: abdominal pain. : Denies: dysuria. Musculoskeletal: Reports: myalgias. Neuro: Denies: headache. All systems rev neg: except as noted Free Text ROS Notes Free Text ROS Notes: All systems reviewed and (-) except as marked or stated in HPI. Objective General VS/I O: Vital Signs: Date Time Temp Pulse Resp B/P B/P Pulse O2 O2 Flow FiO2 Mean Ox Delivery Rate 03/06 1029 98.4 75 17 106/70 81.9 96 Room air 03/06 0946 97 Room air 21 03/06 0719 98.6 83 18 143/79 100.6 97 Room air 03/06 0413 98.6 79 18 144/82 102.4 97 03/05 2335 99.0 84 18 147/83 104.5 94 03/05 1955 99.3 80 17 157/83 107.5 95 03/05 1600 96.8 76 19 144/82 102.4 95 24 hour I O ending at 0700: 03/06 0700 03/05 1900 Intake Total 540 Output Total Balance 540 Intake, Oral 540 Number 2 Incontinent Voids Number Voids 1 Patient 125 kg Weight Weight Stated/Reported Measurement Method PATIENT WEIGHT: Weight (lb): 275 Weight (oz): 9.25 Weight (kg): 125.000 Medications: Active Meds + DC'd Last 24 Hrs Enoxaparin Sodium (LOVENOX) 40 MG DAILY SUBQ Albuterol/Ipratropium (DUONEB 3MG-0.5MG/3 ML) 3 ML RTQ6H PRN PRN INH Gabapentin (NEURONTIN) 300 MG Q8HR PO Metoprolol Succinate (TOPROL XL) 25 MG DAILY PO Atorvastatin Calcium (LIPITOR) 80 MG BEDTIME PO (DC) Atorvastatin Calcium (LIPITOR) 40 MG BEDTIME PO Sacubitril/Valsartan (Entresto 49 MG-51 MG Tablet) 1 TAB BID PO Clopidogrel Bisulfate (PLAVIX) 75 MG DAILY PO Insulin Human Lispro (HumaLOG) Low Dose Sliding Scale: *See ADMIN CRIT for DOSE* AC HS SUBQ Dextrose/Water (DEXTROSE 50% SYR) 25 ML ASDIR PRN IV (CKD) Glucagon (GLUCAGON) 1 MG ASDIR PRN IM Aspirin (ASPIRIN CHEWABLE) 81 MG DAILY PO Ceftriaxone Sodium (ROCEPHIN) 1,000 MG DAILY IV Sterile Water (WATER,STERILE ) 10 ML Albuterol/Ipratropium (DUONEB 3MG-0.5MG/3 ML) 3 ML RTQ6H INH (DC) Perflutren Lipid Microsphere (DEFINITY) DIRECTED ONCE PRN IV Sodium Chloride (NACL 0.9% 10ML SYRINGE) DIRECTED ONCE PRN IV Sodium Chloride (SODIUM CHLORIDE FLUSH) 5 ML ONCE PRN IV Acetaminophen (TYLENOL REGULAR) 650 MG Q6H PRN PRN PO Naloxone HCl (NARCAN) 0.4 MG Q2M PRN PRN IV Ondansetron HCl (ZOFRAN 4 MG/2 ML INJ) 4 MG Q4H PRN PRN IV Polyethylene Glycol (MIRALAX) 1 PKT DAILY PRN PRN PO (CKD) Dietitian nutrition assessment The data set between the solid lines has been imported from the dietitian's assessment. 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, 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 X 3, normal speech, no motor deficits, no sensory deficits Results Findings/Data: Laboratory Tests 03/06 03/06 03/06 03/05 03/05 1025 0639 0414 2010 1631 Chemistry POC Glucose (74 - 106 MG/DL) 174 H 138 H 146 H 173 H 143 H Laboratory Tests 03/06 0349 Hematology WBC (5.0 - 12.0 x10 3/uL) 9.2 RBC (4.20 - 5.40 x10 6/uL) 4.50 Hgb (12.0 - 16.0 g/dL) 12.7 Hct (36.0 - 46.0 %) 40.1 MCV (81 - 99 fL) 89 MCH (27 - 31 pg) 28.2 MCHC (33 - 37 g/dL) 31.7 L RDW (11.5 - 15.5 %) 13.4 Plt Count (130 - 400 x10 3/uL) 259 MPV (9.4 - 16.4 fL) 11.5 Neut % (Auto) (43 - 65 %) 69.5 H Lymph % (Auto) (20.5 - 45.5 %) 15.3 L [place] % (Auto) (5.5 - 11.7 %) 12.3 H Eos % (Auto) (0.9 - 2.9 %) 1.6 Baso % (Auto) (0.2 - 1.0 %) 0.8 Neut # (Auto) (2.2 - 4.8 x10 3/uL) 6.41 H Lymph # (Auto) (1.3 - 2.9 x10 3/uL) 1.41 [place] # (Auto) (0.3 - 0.8 x10 3/uL) 1.13 H Eos # (Auto) (0.0 - 0.2 x10 3/uL) 0.15 Baso # (Auto) (0.0 - 0.1 x10 3/uL) 0.07 Immature Gran % (0.0 - 2.0 %) 0.5 Nucleated RBC % (0 - 1.0 %) 0.0 Radiology data: Recent Impressions: RADIOLOGY - XR HIP BI W/PELVIS 03/05 1513 Report Impression - Status: SIGNED Entered: 03/05/2024 8248 IMPRESSION: 1. Mildly limited examination related to patient body habitus and image under penetration. 2. No acute fracture or dislocation. 3. 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 Impression By: [email or web address] - Blas Mccallum MD Free Text Obj Notes Free Text Obj Notes: General: Awake, alert, oriented. No acute distress, well-developed, hydrated and nourished. Appears stated age. Pleasant, conversational. Neuro: AOx4, gross movement NL, sensation intact, gait normal, strength 5/5 in all extremities. Head: Atraumatic/normocephalic Eyes: PERRLA, conjunctiva clear, no scleral icterus, sclera clear ENT: Membranes moist Neck: Supple Back: Atraumatic, full/painless ROM, No midline or paraspinal tenderness. No CVA tenderness. Skin: No rashes, warm/dry/pink Psych: NL thought content Cardiovascular: Regular rate/rhythm, no murmurs gallops or rubs. S1+S2 audible w /o increased intensity. No JVD. Brisk capillary refill, 2+ pulses bilaterally in all extremities Respiratory: Lungs clear/equal bilaterally. No wheeze or distress. No rales, rhonchi, wheezing, retractions, stridor, chest wall tenderness, chest wall deformity, crepitus. Abdomen/GI: Atraumatic, soft, nontender. No guarding, rebound, distention, hernia, palpable mass, pulsatile mass. Bowel sounds normoactive. No obvious organomegaly. Extremities: All extremities atraumatic in appearance without tenderness or deformity. No swelling or erythema noted. Full ROM. Diagnosis, Assessment Plan Free Text DxA P Notes Free text DxA P notes: 68 YOF PMHx HTN, HLD, DM presenting for evaluation of bilateral leg numbness, transient #Sepsis on Arrival 2/2 Acute Cystitis HR 102, RR 24, acute cystitis UA with Nitrite 2+, LE 1+, WBC 6-10 Pt endorses significant suprapubic pain, dysuria. Per nurse, urine is foul smelling - UCx growing Gram neg rods, f/u speciation and antibiotic sensitivities - BCx negative at 24 hours - IV CTX #BL LE weakness/pain #B/l hip pain Unlikely TIA or CVA. NIH 0 on admission and on my exam - DC MRI head pending, MRI L-spine - XR hib b/l with no acute fracture or dislocation, mild osteoarthritis in both hips and SI joints #CAD s/p PCI Has had 3MIs, last ID in July with stent placement - c/w ASA, plavix, and atorvastatin #HTN - resuming homemetoprolol succinate 25mg daily #HF? - resuming home entresto 49/51mg daily #Diabetes Reportedly takes insulin at home,but was unable to tell specific dose. also on metformin 1000mg bid A1c 7.3 -LDSS for now #Smoker -Nicotine patch as needed Diet: Cardiac VTE: lovenox GI PPx: none pt has diet Code: Full code Plan: - IV CTX - UCx growing Gram neg rods, f/u speciation and antibiotic sensitivities Dispo: Tomorrow once UCx speciates Case discussed with Dr. Dunne [facility] Advance Care Planning [X] I confirmed that the patient's Advance Care Plan is present, code status is documented, or surrogate decision maker is listed in the patient s medical record. [SATISFIES MIPS PERFORMANCE] If Yes, Stop Here [] The patient s Advance Care plan is not present because: (select) [MIPS PERFORMANCE EXCEPTION/EXCLUSION] [] I confirmed today that the patient does not wish or was not able to name a surrogate decision maker or provide an Advance Care Plan. [] Hospice care is currently being provided or has been provided this calendar year [] I did NOT confirm today the presence of an Advance Care Plan or surrogate decision maker documented within the patient's medical record. [DOES NOT SATISFY MIPS PERFORMANCE] [facility] Med Reconciliation [X] I have utilized all available immediate resources to obtain, update, or review the patient s current medications (including all prescriptions, over-the- counter products, herbals, cannabis/cannabidiol products, and vitamin/mineral/ dietary (nutritional) supplements). [SATISFIES MIPS PERFORMANCE] If Yes, Stop Here [] The patient is not eligible for medication reconciliation; the patient is in an emergent medical situation where delaying treatment would jeopardize the patient s health. [MIPS PERFORMANCE EXCEPTION/EXCLUSION] [] I did NOT confirm, update or review the patient's current list of medications today. [DOES NOT SATISFY MIPS PERFORMANCE] Avril Dunne 03/17/24 1406: Attestations Teaching Physician Attestation F/U visit w/ resident: I saw the patient with the resident and . . . agree with the resident's findings and plan. agree with the resident's findings and plan EXCEPT: I personally saw and examined the patient. I have reviewed and agree with the resident's findings, including all diagnostic interpretations and treatment plan as written. I was present for the bowles portions of any procedures performed. Patient seen and examined on 03/06/2024. Sepsis resolved and vitals, labs are stable. CVA tenderness on R resolved as well as dysuria. Likely de-escalate abx within next 24hrs and D/C home w/ family. Barrier to D/C: Awaiting urine culture speciation Time spent on direct patient care: >35 minutes with >50% time spent on patient coordination and counseling at 1353 at 1413 RPT #:[id number] END OF [id number] 06:59:00 [facility] ([facility]) Hospitalist Progress Note REPORT#:[id number] REPORT STATUS: Signed REPORT INITIALIZATION DATE:03/05/24 TIME: 658 PATIENT: AYLEEN SALAS UNIT #: [id number] ROOM/BED: [address] : [birth year] AGE: 68 SEX: F ATTEND: Bryn Chamorro MD ADM AUTHOR: Steffen Boyce MD R2 REPT SERVICE DT/TIME: 03/05/24 0659 * ALL edits or amendments must be made on the electronic/computer document * Steffen Boyce 03/05/24 0659: Subjective Chief complaint: Leg weakness HPI: Patient seen and examined in AM. Patient states she is having pain in her lower abdomen pain in her upper bilateral legs. She endorses generalized leg pain. Patient also endorses some hip pain. Per patient's daughter she fell a few times yesterday but patient does not ever endorse falling. Patient is a very poor historian. Pt endorses dysuria Review of Systems Constitutional: Denies: chills, fever. Respiratory: Denies: SOB, wheezing. Cardiovascular: Denies: chest pain. GI: Reports: abdominal pain. Denies: nausea, vomiting. : Reports: dysuria. Neuro: Denies: headache. Free Text ROS Notes Free Text ROS Notes: All systems reviewed and (-) except as marked or stated in HPI. Objective General VS/I O: Vital Signs: Date Time Temp Pulse Resp B/P B/P Pulse O2 O2 Flow FiO2 Mean Ox Delivery Rate 03/05 1600 96.8 76 19 144/82 102.4 95 03/05 1139 98.2 79 18 146/83 103.7 96 03/05 0945 95 Room air 21 03/05 0746 98.4 81 18 140/75 96.4 95 03/05 0600 99.1 82 18 162/83 109.1 96 03/05 0000 94 159/80 96 03/04 2321 98.3 102 24 111/84 93 98 Room air 24 hour I O ending at 0700: 03/05 0700 03/04 1900 Intake Total Output Total Balance Patient 125 kg Weight Weight Stated/Reported Measurement Method PATIENT WEIGHT: Weight (lb): 275 Weight (oz): 9.25 Weight (kg): 125.000 Medications: Active Meds + DC'd Last 24 Hrs Enoxaparin Sodium (LOVENOX) 40 MG DAILY SUBQ Atorvastatin Calcium (LIPITOR) 80 MG BEDTIME PO Insulin Human Lispro (HumaLOG) Low Dose Sliding Scale: *See ADMIN CRIT for DOSE* AC HS SUBQ Dextrose/Water (DEXTROSE 50% SYR) 25 ML ASDIR PRN IV (CKD) Glucagon (GLUCAGON) 1 MG ASDIR PRN IM Aspirin (ASPIRIN CHEWABLE) 81 MG DAILY PO Ceftriaxone Sodium (ROCEPHIN) 1,000 MG DAILY IV Sterile Water (WATER,STERILE ) 10 ML Albuterol/Ipratropium (DUONEB 3MG-0.5MG/3 ML) 3 ML RTQ6H INH Perflutren Lipid Microsphere (DEFINITY) DIRECTED ONCE PRN IV Sodium Chloride (NACL 0.9% 10ML SYRINGE) DIRECTED ONCE PRN IV Sodium Chloride (SODIUM CHLORIDE FLUSH) 5 ML ONCE PRN IV Heparin Sodium (Porcine) (HEPARIN SODIUM) 5,000 UNIT Q8HR SUBQ (DC) Acetaminophen (TYLENOL REGULAR) 650 MG Q6H PRN PRN PO Naloxone HCl (NARCAN) 0.4 MG Q2M PRN PRN IV Ondansetron HCl (ZOFRAN 4 MG/2 ML INJ) 4 MG Q4H PRN PRN IV Polyethylene Glycol (MIRALAX) 1 PKT DAILY PRN PRN PO (CKD) Dietitian nutrition assessment The data set between the solid lines has been imported from the dietitian's assessment. BMI Calculated: 47.3 Nutrition related diagnosis: Nutrition diagnosis details: Nutrition problem: Nutrition etiology: Nutrition signs and symptoms: Nutrition prescription: Dietitian name: Assessment completed: Physical Exam General appearance: alert, awake, oriented Head/Eyes: clear cornea, normocephalic Neck: non-tender, no masses or swelling Cardiovascular: normal heart sounds, regular rate rhythm Respiratory: aerating well, clear to auscultation Abdomen: tenderness (suprapubic ), normal bowel sounds, soft Genitourinary: flank pain (slight R. CVT) Extremities: no edema Musculoskeletal: Tenderness with palpation of thigh on b/l LE. 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 MANAGER: alert, oriented X 3, normal speech, no motor deficits, no sensory deficits Results Findings/Data: Laboratory Tests 03/05 03/05 03/05 03/05 03/05 1631 1137 1045 1045 0635 Chemistry POC Glucose (74 - 106 MG/DL) 143 H 184 H Lactic Acid (0.7 - 2.0 mmol/L) 0.9 Total Bilirubin (0.2 - 1.3 mg/dL) 0.4 Conjugated Bilirubin (0 - 0.3 mg/dL) 0 Unconjugated Bilirubin (0 - 1.1 mg/dL) 0.4 AST (15 - 46 U/L) 58 H ALT (0 - 34 U/L) 20 Total Alk Phosphatase (38 - 126 U/L) 89 Total Protein (6.3 - 8.2 g/dL) 6.8 Albumin (3.5 - 5.0 g/dL) 3.5 Vitamin B12 (239 - 931 pg/mL) 453 03/05 03/05 03/05 0635 0557 0029 Chemistry Sodium (137 - 145 mmol/L) 136 L Potassium (3.4 - 5.0 mmol/L) 4.0 Chloride (98 - 107 mmol/L) 109 H Carbon Dioxide (22 - 30 mmol/L) 24 Anion Gap (10 - 20 mmol/L) 7 L BUN (7 - 17 mg/dL) 24 H Creatinine (0.5 - 1.0 mg/dL) 0.8 Glomerular Filtr Rate (mL/min) 80 Glucose (74 - 106 mg/dL) 159 H POC Glucose (74 - 106 MG/DL) 149 H Hemoglobin A1c (0 - 5.9 %) 7.3 H Calcium (8.4 - 10.2 mg/dL) 8.9 Troponin I (0.012 - 0.033 ng/mL) < 0.012 L NT-Pro-B Natriuret Pep (<20.0 - 221 pg/mL) 233 H Specimen Hemolysis (0 - 100 Index/DL) < 15 Laboratory Tests 03/05 0029 Hematology WBC (5.0 - 12.0 x10 3/uL) 12.9 H RBC (4.20 - 5.40 x10 6/uL) 4.43 Hgb (12.0 - 16.0 g/dL) 12.4 Hct (36.0 - 46.0 %) 38.7 MCV (81 - 99 fL) 87 MCH (27 - 31 pg) 28.0 MCHC (33 - 37 g/dL) 32.0 L RDW (11.5 - 15.5 %) 13.4 Plt Count (130 - 400 x10 3/uL) 264 MPV (9.4 - 16.4 fL) 11.6 Neut % (Auto) (43 - 65 %) 80.7 H Lymph % (Auto) (20.5 - 45.5 %) 8.3 L [place] % (Auto) (5.5 - 11.7 %) 9.8 Eos % (Auto) (0.9 - 2.9 %) 0.2 L Baso % (Auto) (0.2 - 1.0 %) 0.5 Neut # (Auto) (2.2 - 4.8 x10 3/uL) 10.44 H Lymph # (Auto) (1.3 - 2.9 x10 3/uL) 1.07 L [place] # (Auto) (0.3 - 0.8 x10 3/uL) 1.27 H Eos # (Auto) (0.0 - 0.2 x10 3/uL) 0.03 Baso # (Auto) (0.0 - 0.1 x10 3/uL) 0.06 Immature Gran % (0.0 - 2.0 %) 0.5 Nucleated RBC % (0 - 1.0 %) 0.0 Laboratory Tests 03/05 0029 Toxicology Ethyl Alcohol (<10 mg/dL) < 10 Laboratory Tests 03/05 0517 Urines Urine Color (Yellow) Light-Yellow Urine Appearance (Clear) Turbid H Urine pH (5.0 - 8.0) 6.5 Ur Specific Grahn (<1.030) 1.019 Urine Protein (Negative mg/dL) TRACE Urine Glucose (UA) (Negative) Normal Urine Ketones (Negative mg/dL) Negative Urine Blood (Negative) TRACE Urine Nitrite (Negative) 2+ H Urine Bilirubin (Negative) Negative Urine Urobilinogen (Negative mg/dL) Negative Ur Leukocyte Esterase (Negative) 1+ H Urine RBC (<4 - 5 /HPF) 4-5 H Urine WBC (<4 - 5 /HPF) 6-10 H Ur Squamous Epith Cells (0 - 5 (RARE) /HPF) 0-5 (RARE) Urine Bacteria (None - Rare /HPF) Rare Urine Mucus (<Rare /LPF) Rare H Radiology data: Recent Impressions: RADIOLOGY - XR CHEST 1 V 03/04 2323 Report Impression - Status: SIGNED Entered: 03/05/2024 0009 IMPRESSION: Borderline cardiomegaly. Impression By: [email or web address] - Andry Barrera MD CAT SCAN - CT C-SPINE W/O CONT 03/05 0120 Report Impression - Status: SIGNED Entered: 03/05/2024 0239 IMPRESSION: No acute findings. Impression By: [email or web address] - Jefe Anderson M.D. CAT SCAN - CT HEAD/BRAIN W/O CONT 03/05 0120 Report Impression - Status: SIGNED Entered: 03/05/2024 0246 IMPRESSION: No acute intracranial abnormality. Impression By: [email or web address] Sudha Tang M.D. RADIOLOGY - XR HIP BI W/PELVIS 03/05 1513 Report Impression - Status: SIGNED Entered: 03/05/2024 1728 IMPRESSION: 1. Mildly limited examination related to patient body habitus and image under penetration. 2. No acute fracture or dislocation. 3. 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 Impression By: [email or web address] - Blas Mccallum MD Free Text Obj Notes Free Text Obj Notes: General: Awake, alert, oriented. No acute distress, well-developed, hydrated and nourished. Appears stated age. Pleasant, conversational. Neuro: AOx4, gross movement NL, sensation intact, gait normal, strength 5/5 in all extremities. Head: Atraumatic/normocephalic Eyes: PERRLA, conjunctiva clear, no scleral icterus, sclera clear ENT: Membranes moist Neck: Supple Back: Atraumatic, full/painless ROM, No midline or paraspinal tenderness. No CVA tenderness. Skin: No rashes, warm/dry/pink Psych: NL thought content Cardiovascular: Regular rate/rhythm, no murmurs gallops or rubs. S1+S2 audible w /o increased intensity. No JVD. Brisk capillary refill, 2+ pulses bilaterally in all extremities Respiratory: Lungs clear/equal bilaterally. No wheeze or distress. No rales, rhonchi, wheezing, retractions, stridor, chest wall tenderness, chest wall deformity, crepitus. Abdomen/GI: Atraumatic, soft, nontender. No guarding, rebound, distention, hernia, palpable mass, pulsatile mass. Bowel sounds normoactive. No obvious organomegaly. Extremities: All extremities atraumatic in appearance without tenderness or deformity. No swelling or erythema noted. Full ROM. Diagnosis, Assessment Plan Free Text DxA P Notes Free text DxA P notes: 68 YOF PMHx HTN, HLD, DM presenting for evaluation of bilateral leg numbness, transient #Sepsis on Arrival 2/2 Acute Cystitis HR 102, RR 24, acute cystitis UA with Nitrite 2+, LE 1+, WBC 6-10 Pt endorses significant suprapubic pain, dysuria. Per nurse, urine is foul smelling - f/u UCx - f/u BCx - IV CTX #BL LE weakness/pain #B/l hip pain Unlikely TIA or CVA. NIH 0 on admission and on my exam - DC MRI head pending, MRI L-spine - XR hib b/l with no acute fracture or dislocation, mild osteoarthritis in both hips and SI joints #CAD s/p PCI Has had 3MIs, last ID in July with stent placement - c/w ASA, plavix, and atorvastatin #HTN - resuming homemetoprolol succinate 25mg daily #HF? - resuming home entresto 49/51mg daily #Diabetes Reportedly takes insulin at home,but was unable to tell specific dose. also on metformin 1000mg bid A1c 7.3 -LDSS for now #Smoker -Nicotine patch as needed Diet: Cardiac VTE: lovenox GI PPx: none pt has diet Code: Full code Case discussed with Dr. Dunne [facility] Advance Care Planning [X] I confirmed that the patient's Advance Care Plan is present, code status is documented, or surrogate decision maker is listed in the patient s medical record. [SATISFIES MIPS PERFORMANCE] If Yes, Stop Here [] The patient s Advance Care plan is not present because: (select) [MIPS PERFORMANCE EXCEPTION/EXCLUSION] [] I confirmed today that the patient does not wish or was not able to name a surrogate decision maker or provide an Advance Care Plan. [] Hospice care is currently being provided or has been provided this calendar year [] I did NOT confirm today the presence of an Advance Care Plan or surrogate decision maker documented within the patient's medical record. [DOES NOT SATISFY MIPS PERFORMANCE] [facility] Med Reconciliation [X] I have utilized all available immediate resources to obtain, update, or review the patient s current medications (including all prescriptions, over-the- counter products, herbals, cannabis/cannabidiol products, and vitamin/mineral/ dietary (nutritional) supplements). [SATISFIES MIPS PERFORMANCE] If Yes, Stop Here [] The patient is not eligible for medication reconciliation; the patient is in an emergent medical situation where delaying treatment would jeopardize the patient s health. [MIPS PERFORMANCE EXCEPTION/EXCLUSION] [] I did NOT confirm, update or review the patient's current list of medications today. [DOES NOT SATISFY MIPS PERFORMANCE] Avril Dunne 03/17/24 1311: Attestations Teaching Physician Attestation F/U visit w/ resident: I saw the patient with the resident and . . . agree with the resident's findings and plan. agree with the resident's findings and plan EXCEPT: I personally saw and examined the patient. I have reviewed and agree with the resident's findings, including all diagnostic interpretations and treatment plan as written. I was present for the bowles portions of any procedures performed. Patient seen and examined on 03/05/2024. Sepsis resolved. Blood cultures x2 show no growth thus far. Continue IV Ceftriaxone. Awaiting urine cultures. Symptoms most likely due to acute cystitis w/o hematuria Time spent on direct patient care: >50 minutes with >50% time spent on patient coordination and counseling Also performed extensive home med rec and discussed not taking Entresto and ARB together. Discussed with patient and daughter, via phone. at 1812 at 1315 RPT #:[id number] END OF [id number] 04:29:[address] [facility] Hospitalist History Physical REPORT#:[id number] REPORT STATUS: Signed REPORT INITIALIZATION DATE:03/05/24 TIME: 428 PATIENT: AYLEEN SALAS UNIT #: [id number] ROOM/BED: [address] : [birth year] AGE: 68 SEX: F ATTEND: Avril Dunne DO ADM AUTHOR: Earl Gray MD R3 REPT SERVICE DT/TIME: 03/05/24428 * ALL edits or amendments must be made on the electronic/computer document * See Addendum Earl Gray 03/05/24428: History of Present Illness HPI Chief complaint: Leg weakness HPI: Ms. Salas is a 68 YOF PMHx CVA, HDL, HLD, reported ID, diabetes who presented to the ED for evaluation of bilateral weakness of the lower extremities that occurred at around 0530 today. She denies any loss of consciousness, but states that she was in the bathroom when this happened/taking a shower. She had to call her daughter for assistance. The weakness lasted for about 20 minutes and then she came to the ER. Denies any change in vision, associates a mild global headache, and denies any paresthesias/numbness in the extremities. Does endorse dysuria over the last couple days without any fevers. In the ED, vital signs are mildly hypertensive at 159/80, heart rate 94, respiratory 24. ECG showing normal sinus rhythm. Lab work remarkable for a mild leukocytosis and NT-proBNP of 233. History Smoking status for patients 13 years old or older: Unknown,if ever smoked Medication/Allergy-Vaccine Hx Allergies: Coded Allergies: No Known Allergies (10/12/22) Review of Systems Free Text ROS Notes Free Text ROS Notes: All systems reviewed and (-) except as marked or stated in HPI. Objective General VS/I O: Vital Signs: Date Time Temp Pulse Resp B/P B/P Pulse O2 O2 Flow FiO2 Mean Ox Delivery Rate 03/05 0000 94 159/80 96 03/04 2321 98.3 102 24 111/84 93 98 Room air 24 hour I O ending at 0700: 03/05 0700 03/04 1900 Intake Total Output Total Balance Patient 125 kg Weight Weight Stated/Reported Measurement Method PATIENT WEIGHT: Weight (lb): Weight (oz): Weight (kg): 125.000 Medications: Active Meds + DC'd Last 24 Hrs Aspirin (ASPIRIN CHEWABLE) 81 MG DAILY PO (UNV) Ceftriaxone Sodium (ROCEPHIN) 1,000 MG DAILY IV (UNV) Sterile Water (WATER,STERILE ) 10 ML Perflutren Lipid Microsphere (DEFINjellyfish) DIRECTED ONCE PRN IV (UNV) Sodium Chloride (NACL 0.9% 10ML SYRINGE) DIRECTED ONCE PRN IV (UNV) Sodium Chloride (SODIUM CHLORIDE FLUSH) 5 ML ONCE PRN IV (UNV) Heparin Sodium (Porcine) (HEPARIN SODIUM) 5,000 UNIT Q8HR SUBQ Acetaminophen (TYLENOL REGULAR) 650 MG Q6H PRN PRN PO Naloxone HCl (NARCAN) 0.4 MG Q2M PRN PRN IV Ondansetron HCl (ZOFRAN 4 MG/2 ML INJ) 4 MG Q4H PRN PRN IV Polyethylene Glycol (MIRALAX) 1 PKT DAILY PRN PRN PO (CKD) Results Findings/Data: Laboratory Tests 03/05 29 Chemistry Sodium (137 - 145 mmol/L) 136 L Potassium (3.4 - 5.0 mmol/L) 4.0 Chloride (98 - 107 mmol/L) 109 H Carbon Dioxide (22 - 30 mmol/L) 24 Anion Gap (10 - 20 mmol/L) 7 L BUN (7 - 17 mg/dL) 24 H Creatinine (0.5 - 1.0 mg/dL) 0.8 Glomerular Filtr Rate (mL/min) 80 Glucose (74 - 106 mg/dL) 159 H Calcium (8.4 - 10.2 mg/dL) 8.9 Troponin I (0.012 - 0.033 ng/mL) < 0.012 L NT-Pro-B Natriuret Pep (<20.0 - 221 pg/mL) 233 H Specimen Hemolysis (0 - 100 Index/DL) < 15 Laboratory Tests 03/05 0029 Hematology WBC (5.0 - 12.0 x10 3/uL) 12.9 H RBC (4.20 - 5.40 x10 6/uL) 4.43 Hgb (12.0 - 16.0 g/dL) 12.4 Hct (36.0 - 46.0 %) 38.7 MCV (81 - 99 fL) 87 MCH (27 - 31 pg) 28.0 MCHC (33 - 37 g/dL) 32.0 L RDW (11.5 - 15.5 %) 13.4 Plt Count (130 - 400 x10 3/uL) 264 MPV (9.4 - 16.4 fL) 11.6 Neut % (Auto) (43 - 65 %) 80.7 H Lymph % (Auto) (20.5 - 45.5 %) 8.3 L [place] % (Auto) (5.5 - 11.7 %) 9.8 Eos % (Auto) (0.9 - 2.9 %) 0.2 L Baso % (Auto) (0.2 - 1.0 %) 0.5 Neut # (Auto) (2.2 - 4.8 x10 3/uL) 10.44 H Lymph # (Auto) (1.3 - 2.9 x10 3/uL) 1.07 L [place] # (Auto) (0.3 - 0.8 x10 3/uL) 1.27 H Eos # (Auto) (0.0 - 0.2 x10 3/uL) 0.03 Baso # (Auto) (0.0 - 0.1 x10 3/uL) 0.06 Immature Gran % (0.0 - 2.0 %) 0.5 Nucleated RBC % (0 - 1.0 %) 0.0 Laboratory Tests 03/05 0029 Toxicology Ethyl Alcohol (<10 mg/dL) < 10 Radiology data: Recent Impressions: RADIOLOGY - XR CHEST 1 V 03/04 2323 Report Impression - Status: SIGNED Entered: 03/05/2024 0009 IMPRESSION: Borderline cardiomegaly. Impression By: [email or web address] - Andry Barrera MD CAT SCAN - CT C-SPINE W/O CONT 03/05 0120 Report Impression - Status: SIGNED Entered: 03/05/2024 0239 IMPRESSION: No acute findings. Impression By: [email or web address] - Jefe Anderson M.D. CAT SCAN - CT HEAD/BRAIN W/O CONT 03/05 012 Report Impression - Status: SIGNED Entered: 03/05/2024 0246 IMPRESSION: No acute intracranial abnormality. Impression By: [email or web address] - Patrice Tang M.D. Free Text Obj Notes Free Text Obj Notes: General: Awake, alert, oriented. No acute distress, well-developed, hydrated and nourished. Appears stated age. Pleasant, conversational. Neuro: AOx4, gross movement NL, sensation intact, gait normal, strength 5/5 in all extremities. Head: Atraumatic/normocephalic Eyes: PERRLA, conjunctiva clear, no scleral icterus, sclera clear ENT: Membranes moist Neck: Supple Back: Atraumatic, full/painless ROM, No midline or paraspinal tenderness. No CVA tenderness. Skin: No rashes, warm/dry/pink Psych: NL thought content Cardiovascular: Regular rate/rhythm, no murmurs gallops or rubs. S1+S2 audible w /o increased intensity. No JVD. Brisk capillary refill, 2+ pulses bilaterally in all extremities Respiratory: Lungs clear/equal bilaterally. No wheeze or distress. No rales, rhonchi, wheezing, retractions, stridor, chest wall tenderness, chest wall deformity, crepitus. Abdomen/GI: Atraumatic, soft, nontender. No guarding, rebound, distention, hernia, palpable mass, pulsatile mass. Bowel sounds normoactive. No obvious organomegaly. Extremities: All extremities atraumatic in appearance without tenderness or deformity. No swelling or erythema noted. Full ROM. Diagnosis, Assessment Plan Free Text DxA P Notes Free Text DxA P Notes: 68 YOF PMHx HTN, HLD, DM presenting for evaluation of bilateral leg numbness, transient #Acute neurological event #BL LE weakness -TIA vs. CVA versus spinal pathology -CTH negative -MRI head pending, MRI L-spine pending -Start ASA daily -Start atorvastatin -Obtain A1c + lipid panel + B12 level -NIHSS: 03/05/2024 0530 -Atorvastatin 80mg qHs -Neuro consulted, recs appreciated -Neurochecks per protocol -NPO pending RN bedside swallow -Labetalol PRN SBP > 220, DBP > 120, EOT: -PT/OT/ST #Diabetes -Reportedly takes insulin at home, but was unable to tell specific dose -A1c pending -LDSS for now #Dysuria -F/u UA/UCx -Start Rocephin empirically #Smoker -Nicotine patch as needed Code: Full code ABx: Rocephin Analgesia: PRN Nutrition: Pending bedside RN speech eval Glycemic control: Ulcer PPx: N/A DVT PPx: Heparin Solomon catheter: N/A Telemetry: Monitor for arrhythmias PT/OT/ST: Pending Dispo: Presumed home Plan discussed with Dr. Laughlin [facility] Advance Care Planning [X] I confirmed that the patient's Advance Care Plan is present, code status is documented, or surrogate decision maker is listed in the patient s medical record. [SATISFIES MIPS PERFORMANCE] If Yes, Stop Here [] The patient s Advance Care plan is not present because: (select) [MIPS PERFORMANCE EXCEPTION/EXCLUSION] [] I confirmed today that the patient does not wish or was not able to name a surrogate decision maker or provide an Advance Care Plan. [] Hospice care is currently being provided or has been provided this calendar year [] I did NOT confirm today the presence of an Advance Care Plan or surrogate decision maker documented within the patient's medical record. [DOES NOT SATISFY MIPS PERFORMANCE] [facility] Med Reconciliation [X] I have utilized all available immediate resources to obtain, update, or review the patient s current medications (including all prescriptions, over-the- counter products, herbals, cannabis/cannabidiol products, and vitamin/mineral/ dietary (nutritional) supplements). [SATISFIES MIPS PERFORMANCE] If Yes, Stop Here [] The patient is not eligible for medication reconciliation; the patient is in an emergent medical situation where delaying treatment would jeopardize the patient s health. [MIPS PERFORMANCE EXCEPTION/EXCLUSION] [] I did NOT confirm, update or review the patient's current list of medications today. [DOES NOT SATISFY [facility] PERFORMANCE] Chester Laughlin 03/07/24 0424: Attestations Physician Attestation Agree w/findings plan: I personally saw and examined the patient on 03/05. I have reviewed and agree with the resident's findings, including all diagnostic interpretations and treatment plan as written. I was present for the bowles portions of any procedures performed. at 0558 at 0425 Addendum 1: 03/05/24 0628 by Earl Gray MD R3 #Leukocytosis -Unclear etiology -Will obtain BCx -Start Rocephin empirically in the setting of dysuria at 0629 at 0425 RPT #:[id number] END OF [id number] 03:56:00 [facility] ([facility]) EMERGENCY PROVIDER REPORT REPORT#:[id number] REPORT STATUS: Signed DATE:03/05/24 TIME: 355 PATIENT: AYLEEN SALAS UNIT #: [id number] ROOM/BED: [place] [address] AGE: 68 SEX: F PCP PHYS: Mario Mercado MD SERVICE AUTHOR: Maldonado Mei MD * ALL edits or amendments must be made on the electronic/computer document * HPI-Trauma Minor/Fall Free Text HPI Notes Free Text HPI Notes 68-year-old female with a history of CVA, hypertension presents after fall Patient states that at around 530 right EXTR lower extremity fell weak, had difficulty moving, she fell and hit her head. No LOC. She has been with back and extremity now. Had a CVA back in March of last year in [place]. No chest pain General Initial Greet Date/Time 03/04/242328 Presentation Chief Complaint Fall Review of Systems Free Text ROS Notes Free Text ROS Notes REVIEW OF SYSTEMS Constitutional: Afebrile, no malaise, no general weakness Skin: No rashes, bruises, lumps HEENT: No headache, no visual changes, no ear pain, no tinnitus, no rhinorrhea, no sore throat Endocrine: No Polyuria, No Polydipsia Cardiovascular: No chest pain, no shortness of breath, no palpitations, no lightheadedness, no leg swelling Respiratory: No cough, no dyspnea Gastrointestinal: Nondistended, no abdominal pain, no Nausea, No Vomiting, No Diarrhea Genitourinary: No hesitancy, no urgency, no dysuria, no hematuria Musculoskeletal: No joint pain, no weakness Neuro: See HPI Past Medical History - Adult Stated Complaint AMS, FALLS WITH PLAVIX Allergies Coded Allergies: No Known Allergies (10/12/22) Home Medications Reported Medications ASPIRIN EC (ECOTRIN) 325 MG PO DAILY ATORVASTATIN (LIPITOR) 40 MG PO BEDTIME LISINOPRIL (ZESTRIL) 40 MG PO DAILY ALBUTEROL (VENTOLIN HFA 90 MCG/ACT 18 GM) 1 PUFF INH RTQ6H PRN PRN SOB FUROSEMIDE (LASIX) 20 MG PO DAILY metFORMIN (GLUCOPHAGE) 1,000 MG PO BID Calculated Suicide Risk (nurs) No risk Smoking status for patients 13 years old or older: Unknown,if ever smoked Physical Exam Vital Signs Vital Signs First Documented: Result Date Time Pulse Ox 98 03/04 2321 B/P 111/84 03/04 2321 B/P Mean 93 03/04 2321 O2 Delivery Room air 03/04 2321 Temp 36.8 03/04 232 Pulse 102 03/04 2321 Resp 24 03/04 2321 Last Documented: Result Date Time Pulse Ox 96 03/05 0000 B/P 159/80 03/05 0000 Pulse 94 03/05 0000 B/P Mean 93 03/04 2321 O2 Delivery Room air 03/04 2321 Temp 36.8 03/04 2321 Resp 24 03/04 232 Review of Vital Signs Reviewed Free Text PE Notes Free Text PE Notes Gen: Alert, no acute distress, well-appearing Skin: Appropriate color, well-perfused, warm, dry, no wounds or lumps HEENT: NCAT, EOM intact, TM normal bilaterally, mucous membranes moist CV: Regular rate and rhythm, normal S1, S2, no murmurs, clicks, rubs, gallops Pulm: Spontaneous respirations, no respiratory distress, no wheezing, no rales, no rhonchi Abd: Nondistended, soft, nontender, no guarding or rebound, no CVA tenderness : Deferred MSK: - RUE: FROM, no deformities, no swelling, no erythema, nontender, compartments soft, sensation intact, 2+ radial pulse - LUE: FROM, no deformities, no swelling, no erythema, nontender, compartments soft, sensation intact, 2+ radial pulse - RLE: FROM, no deformities, no swelling, no erythema, nontender, compartment soft, sensation intact, 2+ DP - LLE: FROM, no deformities, no swelling, no erythema, nontender, compartments soft, sensation intact, 2+ DP -Back: Atraumatic, no abrasions, no midline tenderness, no step-offs, or deformities Neuro: - GCS 15: E-4, V-5, M-6 - Alert and oriented x3, cranial nerves II through XII intact, 5/5 sensation throughout, 5/5 strength throughout, normal [id number] Psych: - Normal affect Interpretation Diagnostics Lab Results Interpretation Results Laboratory Tests 03/05/2428: [Embedded Image Not Available] Laboratory Tests: 03/05 29 Chemistry Sodium (137 - 145 mmol/L) 136 L Potassium (3.4 - 5.0 mmol/L) 4.0 Chloride (98 - 107 mmol/L) 109 H Carbon Dioxide (22 - 30 mmol/L) 24 Anion Gap (10 - 20 mmol/L) 7 L BUN (7 - 17 mg/dL) 24 H Creatinine (0.5 - 1.0 mg/dL) 0.8 Glomerular Filtr Rate (mL/min) 80 Glucose (74 - 106 mg/dL) 159 H Calcium (8.4 - 10.2 mg/dL) 8.9 Troponin I (0.012 - 0.033 ng/mL) < 0.012 L NT-Pro-B Natriuret Pep (<20.0 - 221 pg/mL) 233 H Specimen Hemolysis (0 - 100 Index/DL) < 15 Hematology WBC (5.0 - 12.0 x10 3/uL) 12.9 H RBC (4.20 - 5.40 x10 6/uL) 4.43 Hgb (12.0 - 16.0 g/dL) 12.4 Hct (36.0 - 46.0 %) 38.7 MCV (81 - 99 fL) 87 MCH (27 - 31 pg) 28.0 MCHC (33 - 37 g/dL) 32.0 L RDW (11.5 - 15.5 %) 13.4 Plt Count (130 - 400 x10 3/uL) 264 MPV (9.4 - 16.4 fL) 11.6 Neut % (Auto) (43 - 65 %) 80.7 H Lymph % (Auto) (20.5 - 45.5 %) 8.3 L [place] % (Auto) (5.5 - 11.7 %) 9.8 Eos % (Auto) (0.9 - 2.9 %) 0.2 L Baso % (Auto) (0.2 - 1.0 %) 0.5 Neut # (Auto) (2.2 - 4.8 x10 3/uL) 10.44 H Lymph # (Auto) (1.3 - 2.9 x10 3/uL) 1.07 L [place] # (Auto) (0.3 - 0.8 x10 3/uL) 1.27 H Eos # (Auto) (0.0 - 0.2 x10 3/uL) 0.03 Baso # (Auto) (0.0 - 0.1 x10 3/uL) 0.06 Immature Gran % (0.0 - 2.0 %) 0.5 Nucleated RBC % (0 - 1.0 %) 0.0 Toxicology Ethyl Alcohol (<10 mg/dL) < 10 Recent Impressions: RADIOLOGY - XR CHEST 1 V 03/04 9503 Report Impression - Status: SIGNED Entered: 03/05/2024 0009 IMPRESSION: Borderline cardiomegaly. Impression By: [email or web address] - Andry Barrera MD CAT SCAN - CT C-SPINE W/O CONT 03/05 0120 Report Impression - Status: SIGNED Entered: 03/05/2024 0239 IMPRESSION: No acute findings. Impression By: [email or web address] - Jefe Anderson M.D. CAT SCAN - CT HEAD/BRAIN W/O CONT 03/05 0120 Report Impression - Status: SIGNED Entered: 03/05/2024 0246 IMPRESSION: No acute intracranial abnormality. Impression By: [email or web address] Sudha Tang M.D. Re-Evaluation MDM Free Text MDM Notes Free Text MDM Notes Fall, acute, moderate. Consider intracranial injury, C-spine injury, etiology from mechanical versus extremity weakness secondary to CVA, limb ischemia. Neuro intact currently. Suggestive of TIA. CBC, chemistry EKG, troponin, CBC unremarkable. Currently asymptomatic, however will admit for MRI Patient Discharge Departure Vital Signs/Condition Vital Signs First Documented: Result Date Time Pulse Ox 98 03/04 232 B/P 111/84 03/04 232 B/P Mean 93 03/04 232 O2 Delivery Room air 03/04 2321 Temp 36.8 03/04 232 Pulse 102 / 232 Resp 24 03/04 232 Last Documented: Result Date Time Pulse Ox 96 03/05 0000 B/P 159/80 03/05 0000 Pulse 94 03/05 0000 B/P Mean 93 03/04 232 O2 Delivery Room air 03/04 232 Temp 36.8 03/04 232 Resp 24 03/04 232 All vital signs available at the time of this entry have been reviewed. Clinical Impression Clinical Impression Primary Impression: TIA (transient ischemic attack) Secondary Impressions: Fall Disposition Decision Hospitalize Hosp Physician Name Chester Laughlin MD [facility] Physician Hospitalist Request Time 0428 Request Date 03/05/24 )( Accepts Hospitalization Yes )( Accepted Time 042 )( Accepted Date 03/05/24 Call Information will see patient Discharge/Care Plan Admit Note I have spoken with the patient and/or caregivers. I have explained the patient's condition, diagnoses and treatment plan based on the information available to me at this time. I have answered the patient's and/or caregiver's questions and addressed any concerns. The patient and/or caregivers have as good an understanding of the patient's diagnosis, condition and treatment plan as can be expected at this point. The patient has been stabilized within the capability of the emergency department. The patient will be transported for further care and management or will be moved to an observation or inpatient service. I have communicated with the staff or medical practitioner taking over this patient's care. at 0428 RPT #:[id number] END OF [id number]:[id number] [facility] [address] [place] [address] PATIENT NAME: AYLEEN SALAS ADMIT DATE: 03/04/24 ACCOUNT NO: [id number] ROOM NO: [facility] AGE: 68 REPORT TYPE: ELECTROCARDIOGRAM SEX: F ADMITTING PHYSICIAN:Avril Dunne DO ATTENDING PHYSICIAN:Avril Dunne DO Order: [id number] Test Reason : (Not Selected) Test Date/Time Stamp: WedMar 04 2024 23:45:42 Blood Pressure : 158/084 mmHG Vent. Rate : 097 BPM Atrial Rate : 097 BPM P-R Int : 168 ms QRS Dur : 072 ms QT Int : 336 ms P-R-T Axes : 033 018 128 degrees QTc Int : 426 ms Normal sinus rhythm ST and T wave abnormality, consider lateral ischemia Abnormal ECG No previous ECGs available Confirmed by DIXON ANDERSON ([id number]) on 03/05/2024 12:13:46 PM Referred By: Self Referred Confirmed by:DIXON ANDERSON at 1213 PATIENT NAME: AYLEEN SALAS 09:08:48 Referral placed T Jasmina Sanchez MAMad[facility] [id number] 08:42:01 Done [id number] 08:40:09 ----- Message from Beth Pederson PT sent at 11/02/2023 8:24 AM CDT ----- Regarding: OT Referral Good Morning, Could you place a OT referral for L UE weakness, please for above mentioned pt? Thank you, Beth Pederson, PT, DPT [id number] 12:30:00 Images from the original note were not included. Venipuncture collection performed by clean technique on the right forearm(s). Total of 2 attempts were made. Slight pressure and a bandage/dressing were applied to the site(s). The patient experienced no complications. The following specimens were processed according to instructions and sent to [facility] laboratories per lab order on 09/28/2023 : LT BLUE SST 2 RED LAV 1 PPT DK GREEN (LiHep) DK GREEN (SodH) [place] DK BLUE (K2) DK BLUE (S) ACD Blood Culture NIPT/NTD Patient could not void. Patient sent home with a sterile urine kit and stated she will return. Paty Reyes 09/28/2023 10:29 AM Patient stated She had coffee and sweet bread for breakfast. Patient stated she will come back for A1C and Lipid Blood Test. Paty Reyes 09/28/2023 10:21 AM [facility]2024-03-05 12:30:00 Images from the original note were not included. Patients daughter brought back Urine. Paty Reyes 09/28/2023 12:39 PM Patient has been identified by and name and was provided with cup, antiseptic towelette, and clean catch instructions. 1 urine specimen(s) sent. Unpreserved 1 Urine Culture Aptima tube Other urine [place] [id number] 09:00:00 No anemia or infection noted [facility]2023-04-05 17:21:00 [facility] ([facility]) History Physical - Adult REPORT#:[id number] REPORT STATUS: Signed DATE:10/28/22 TIME: 1721 PATIENT: AYLEEN SALAS UNIT #: [id number] ROOM/BED: : 55 AGE: 66 SEX: F ATTEND: Breanna Andrade Jr, MD ADM AUTHOR: Breanna Andrade Jr, MD * ALL edits or amendments must be made on the electronic/computer document * History of Present Illness Free Text HPI Notes Free Text HPI Notes: Pt is a 66 year old lady who is here today for [facility] for abnormal stress History Smoking status for patients 13 years old or older: Current some day smoker Date last smoked: 10/11/22 Packs per day: 0.315 Years smoked: Pack years: 7.245 Medication/Allergy-Vaccine Hx Allergies: Coded Allergies: No Known Allergies (10/12/22) Review of Systems All systems rev neg: except as marked Diagnosis, Assessment Plan Free Text DxA P Notes Free Text DxA P Notes: abnormal stress test [facility] +/- at 1722 RPT #:[id number] END OF [id number] 13:20:00 [facility] ([facility]) DT Operative Note REPORT#:[id number] REPORT STATUS: Signed DATE:10/19/22 TIME: 1320 PATIENT: AYLEEN SALAS UNIT #: [id number] ROOM/BED: : 55 AGE: 66 SEX: F ATTEND: Breanna Andrade Jr, MD ADM AUTHOR: Breanna Andrade Jr, MD * ALL edits or amendments must be made on the electronic/computer document * Operative Report Operative Note Note: Classification: Outpatient CAD presentation: Abnormal stress Chest pain classification: CCS II Last ejection fraction: Normal HF Classification: NYHA II Antianginal Therapy: BB Non-invasive stress test available in chart: Yes Pre-Procedure Diagnosis: Abnormal stress Post-Procedure Diagnosis: Same Procedure performed: - Ultrasound-guided common femoral access - Selective coronary angiogram of the left main (LM) and right coronary artery ( RCA). - R BODY PRESS OPERATOR angiogram Anesthesia Local Lidocaine, 2% Sedation Moderate Duration of Physician and Sustainable Design Coordinator Monitored Pulse, Blood Pressure, and SpO2 During Sedation 25 Reversal Agents Used None Other Medications None Specimens None Estimated Blood Loss (mL) 5 Blood Products Administered None Grafts or Implants None Contrast Administration (mL) 60 Events/Complications None Patient Condition Stable Procedure (Diagnostic): The patient was interviewed and examined prior to the procedure. The indications , procedures, benefits, alternatives, and risks were discussed with the patient and any attendant family members. All questions were answered. They acknowledged this drug and alcohol counsellor and agreed to proceed. The patient was brought into the production laborer. Both groins and radial sites were prepped in a sterile fashion, and a sterile drape was placed over the patient. The R common femoral artery (BODY PRESS OPERATOR) was palpated and the region superficial to the artery was anesthetized with 2% local lidocaine. Using the modified Seldinger Technique, direct ultrasound and fluoroscopic visualization and micropuncture needle, vascular access was obtained to the R BODY PRESS OPERATOR whereby a 6 Argentine sheath was placed without difficulty. 5 Argentine catheters were used. A JL 3.5 catheter was advanced over a soft-tip guide wire to the level of the ascending aorta (AAo) where it was used to engage the left main coronary artery (LMCA). Contrast injections in multiple angulated views demonstrated the left coronary artery (LCA) anatomy as indicated. This catheter was withdrawn over a soft-tip guide wire and a 3DRC catheter was advanced over the wire to the level of the AAo where it was used to engage the ostium of the right coronary artery (RCA). Contrast injections in multiple angulated views demonstrated the RCA anatomy as indicated above. This catheter was then withdrawn over the soft-tip guide wire. Coronary Anatomy - Stenosis Coronary Comments LMCA Non obstructive disease LAD Non obstructive disease LCx Non obstructive disease RCA Non obstructive disease Dominance R After Reviewing the images, coronary intervention was deemed not necessary. Post Procedure Findings: - Excellent results of Coronary angiogram - No evidence of complications Plan: - Monitor the patient in the Telemetry unit for hemodynamic status and access site complications. - Continue medical therapy optimization and aggressive CV risk factor control. - All findings explained in detail to the patient. at 1323 RPT #:[id number] END OF [id number]:[id number] [facility] [address] [place] [address] PATIENT NAME: AYLEEN SALAS ADMIT DATE: ACCOUNT NO: [id number] ROOM NO: AGE: 66 REPORT TYPE: ELECTROCARDIOGRAM SEX: F ADMITTING PHYSICIAN: ATTENDING PHYSICIAN:Breanna Andrade Jr, MD Order: [id number] Test Reason : PREOP Test Date/Time Stamp: WedOct 15 2022 10:55:07 Blood Pressure : / mmHG Vent. Rate : 073 BPM Atrial Rate : 073 BPM P-R Int : 184 ms QRS Dur : 072 ms QT Int : 396 ms P-R-T Axes : 018 013 078 degrees QTc Int : 436 ms Normal sinus rhythm Minimal voltage criteria for LVH, may be normal variant Nonspecific T wave abnormality Abnormal ECG Confirmed by BREANNA ANDRADE M.D. (Yvonne) on 10/18/2022 8:32:39 AM Referred By: Breanna Andrade Confirmed by:BREANNA ANDRADE M.D. at 0832 PATIENT NAME: AYLEEN SALAS
[2024-12-08] MEDS ORDERED: KETOROLAC 30 MG/ML INJ ONE (00:07)
[2024-12-08] MEDS ORDERED: DIPHENHYDRAMINE 50 MG/ML VIAL ONE (00:07)
[2024-12-08] MEDS ORDERED: METOCLOPRAMIDE 10 MG/2mL INJ ONE (00:08)
--- NOTE | 2024-12-08 00:23 | ER ---
Nurse's Notes [facility] Name: Ayleen Salas Age: 69 yrs Sex: Female : 1955 Arrival Date: 12/07/2024 Time: 19:36 Bed 20 Private MD: Diagnosis: Acute cerebrovascular insufficiency;Weakness;Subsequent non-ST elevation (NSTEMI) myocardial infarction Presentation: 12/07 20:22 Chief complaint: Patient states: Headache onset a few days ago. Pt states 4 days ago cm10 had an episode of vomiting. pt arrived via ems with IV in left forearm. Coronavirus screen: Client denies travel out of the [place] in the last 14 days. Ebola Screen: Patient denies travel to an Ebola-affected area in the 21 days before illness onset. Initial Sepsis Screen: Does the patient meet any 2 criteria? No. Patient's initial sepsis screen is negative. Does the patient have a suspected source of infection? No. Patient's initial sepsis screen is negative. Risk Assessment: Do you want to hurt yourself or someone else? Patient reports no desire to harm self or others. Onset of symptoms was December 07, 2024. Care prior to arrival: IV initiated. 20 GA, in the left forearm. 20:22 Method Of Arrival: [facility]: [facility] 20:22 Acuity: FRANCISCO 3 cm10 12/08 00:00 No acute neurological deficit is noted. Pre-hospital glucose is not applicable to this rg5 patient. Historical: - Allergies: 12/07 20:25 No Known Allergies; cm10 - Home Meds: 12/08 10:13 Entresto 24-26 mg oral tablet 1 tab 2 times per day for chronic heart failure [Active]; kc6 metoprolol tartrate 25 mg Oral tablet 1 tabs 1 times per day for hypertension [Active]; metformin 1,000 mg Oral tablet 1 tab 2 times per day with meals for type 2 diabetes mellitus [Active]; atorvastatin 40 mg oral tablet 1 tab daily for hypercholesterolemia [Active]; aspirin 81 mg oral tablet 1 tab daily [Active]; bupropion HCl 150 mg Oral tablet, sustained-release 12 hr 1 tab daily [Active]; clopidogrel 75 mg oral tablet 1 tab daily [Active]; - PMHx: 12/07 20:25 Hypercholesterolemia; diabetes mellitus; Hypertensive disorder; cm10 - Immunization history:: Adult Immunizations up to date. - Infectious Disease History:: Denies. - Social history:: Smoking status: Patient denies any tobacco usage or history of. Screenin/16 00:35 [facility] ED Fall Risk Assessment (Adult) History of falling in the last 3 months, rg5 including since admission No falls in past 3 months (0 pts) Confusion or Disorientation No (0 pts) Intoxicated or Sedated No (0 pts) Impaired Gait Yes (1 pt) Mobility Assist Device Used No (0 pt) Altered Elimination No (0 pt) Score/Fall Risk Level 0 - 2 = Low Risk Oriented to surroundings, Maintained a safe environment, Provided non-skid footwear. Abuse screen: Denies threats or abuse. Nutritional screening: No deficits noted. Tuberculosis screening: No symptoms or risk factors identified. Assessment: 00:35 VAN Scoring: Arm Drift: Patients demonstrates NO arm weakness. Patient is VAN Negative. rg5 Visual Disturbance: No visual disturbance noted. Aphasia: No aphasia noted. [place] Swallow Protocol Exclusion Criteria: Exclusion Criteria Result: Brief Cognitive Screen What is your name? Normal, Where are you right now? Normal, What year is it? Normal. Oral Mechanism Examination Facial Symmetry: Normal, Motion: Normal, Lip Closure: Normal, Oral Mechanism Result: Normal. 3 oz Water Swallow Challenge: Pt able to drink all water without stopping, coughing, choking or throat clearing: Result: PASS MD Notified: Eric Damon MD. Pain: Denies pain. Neuro: Level of Consciousness is awake, alert, obeys commands, Oriented to person, place, time, situation. 01:00 Reassessment: No changes from previously documented assessment. Patient and/or family rg5 updated on plan of care and expected duration. Pain level reassessed. Patient is alert, oriented x 3, equal unlabored respirations, skin warm/dry/pink. 02:00 Reassessment: No changes from previously documented assessment. Patient and/or family rg5 updated on plan of care and expected duration. Pain level reassessed. Patient is alert, oriented x 3, equal unlabored respirations, skin warm/dry/pink. 03:00 Reassessment: No changes from previously documented assessment. Patient and/or family rg5 updated on plan of care and expected duration. Pain level reassessed. Patient is alert, oriented x 3, equal unlabored respirations, skin warm/dry/pink. 04:16 Reassessment: No changes from previously documented assessment. Patient and/or family rg5 updated on plan of care and expected duration. Pain level reassessed. Patient is alert, oriented x 3, equal unlabored respirations, skin warm/dry/pink. 05:00 Reassessment: No changes from previously documented assessment. Patient and/or family rg5 updated on plan of care and expected duration. Pain level reassessed. Patient is alert, oriented x 3, equal unlabored respirations, skin warm/dry/pink. 06:18 Reassessment: No changes from previously documented assessment. Patient and/or family rg5 updated on plan of care and expected duration. Pain level reassessed. Patient is alert, oriented x 3, equal unlabored respirations, skin warm/dry/pink. 07:00 VAN Scoring: Arm Drift: Patients demonstrates NO arm weakness. Patient is VAN Negative. kc6 Visual Disturbance: No visual disturbance noted. Aphasia: No aphasia noted. Neglect: No neglect noted. [place] Swallow Protocol Exclusion Criteria: Unable to remain alert for testing: No NPO for medical/surgical reason by provider order No Tracheostomy tube present No No thin liquids due to preexisting dysphagia/baseline modified diet thickened liquids No Exclusion Criteria Result: Proceed Brief Cognitive Screen What is your name? Normal, Where are you right now? Normal, What year is it? Normal. Oral Mechanism Examination Facial Symmetry: Normal, Motion: Normal, Lip Closure: Normal, Oral Mechanism Result: Normal. 3 oz Water Swallow Challenge: Pt able to drink all water without stopping, coughing, choking or throat clearing: Yes Result: PASS MD Notified: Bradford Santos MD. 07:05 General: Appears in no apparent distress. comfortable, obese, well groomed, well kc6 developed, Behavior is calm, cooperative, appropriate for age. Pain: Denies pain. Neuro: Level of Consciousness is awake, alert, obeys commands, Oriented to person, place, time, situation, Appropriate for age. Cardiovascular: Capillary refill < 3 seconds Rhythm is regular. Respiratory: Airway is patent Trachea midline Respiratory effort is even, unlabored, Respiratory pattern is regular, symmetrical. GI: No signs and/or symptoms were reported involving the gastrointestinal system. : No signs and/or symptoms were reported regarding the genitourinary system. EENT: No signs and/or symptoms were reported regarding the EENT system. Derm: No signs and/or symptoms reported regarding the dermatologic system. Skin is intact, is healthy with good turgor, Skin is pink, warm \T\ dry. Musculoskeletal: No signs and/or symptoms reported regarding the musculoskeletal system. Circulation, motion, and sensation intact. Range of motion: intact in all extremities. 08:05 Reassessment: Patient appears in no apparent distress at this time. No changes from kc6 previously documented assessment. Patient and/or family updated on plan of care and expected duration. Pain level reassessed. Patient is alert, oriented x 3, equal unlabored respirations, skin warm/dry/pink. 09:05 Reassessment: Patient appears in no apparent distress at this time. No changes from kc6 previously documented assessment. Patient and/or family updated on plan of care and expected duration. Pain level reassessed. Patient is alert, oriented x 3, equal unlabored respirations, skin warm/dry/pink. 09:25 Reassessment: made of aware of BP 214/91. ok to administer morning meds per Dr. ashley Santos. 09:37 Neuro: Reports blurred vision. kc6 09:37 Cardiovascular: Reports chest pain. kc6 10:05 Reassessment: Patient appears in no apparent distress at this time. No changes from kc6 previously documented assessment. Patient and/or family updated on plan of care and expected duration. Pain level reassessed. Patient is alert, oriented x 3, equal unlabored respirations, skin warm/dry/pink. 10:17 Neuro: Denies blurred vision. kc6 10:20 Reassessment: Alexandra (daughter) [phone]. kc6 11:05 Reassessment: Patient appears in no apparent distress at this time. No changes from kc6 previously documented assessment. Patient and/or family updated on plan of care and expected duration. Pain level reassessed. Patient is alert, oriented x 3, equal unlabored respirations, skin warm/dry/pink. 12:02 Reassessment: nurse to nurse report given to DOMINIQUE Baca at [facility], daughter Alexandra ramirez made aware. 12:42 Reassessment: Patient appears in no apparent distress at this time. No changes from kc6 previously documented assessment. Patient and/or family updated on plan of care and expected duration. Pain level reassessed. Patient is alert, oriented x 3, equal unlabored respirations, skin warm/dry/pink. Vital Signs: 12/07 20:22 BP 172 / 77; Pulse 72; Resp 16; Temp 99.2; Pulse Ox 96% on R/A; Weight 108.86 kg; Pain cm10 7/10; 12/08 01:20 BP 186 / 89; Pulse 70; Resp 18; Pulse Ox 99% ; rg5 06:18 BP 178 / 97; Pulse 66; Resp 18; Pulse Ox 99% ; rg5 07:20 BP 205 / 95; Pulse 62; Resp 17 S; Pulse Ox 96% on R/A; kc6 07:31 BP 175 / 92; kc6 08:57 BP 173 / 88; Pulse 64; Resp 16 S; Pulse Ox 97% on R/A; kc6 09:20 BP 214 / 91; Pulse 67; Resp 18 S; Pulse Ox 98% on R/A; kc6 10:10 BP 164 / 72; Pulse 58; Resp 16 S; Pulse Ox 98% on R/A; kc6 12:42 BP 133 / 78; Pulse 70; Resp 18 S; Pulse Ox 100% on R/A; kc6 12/07 20:22 Pain Scale: Adult cm10 NIH Stroke Scale Scores: 00:35 NIHSS Score: 0 rg5 02:26 NIHSS Score: 0 sb4 07:00 NIHSS Score: 0 kc6 ED Course: 12/07 19:38 Patient arrived in ED. mr 20:24 Triage completed. cm10 20:25 Arm band placed on right wrist. Patient placed in waiting room. cm10 20:32 Selene Martinez PA-C is PHCP. sb4 20:32 Alexandra Oscar MD is Attending Physician. sb4 22:42 Chest Single View XRAY In Process Unspecified. EDMS 23:30 Head Brain Wo Cont CT In Process Unspecified. EDMS 23:[address]: breast sincere In Process Unspecified. EDMS 12/08 00:13 Mitesh Gray, DOMINIQUE is Primary Nurse. rg5 00:22 Eric Damon MD is Hospitalizing Provider. sb4 00:35 Patient has correct armband on for positive identification. Door closed. Noise rg5 minimized. Warm blanket given. 00:35 No provider procedures requiring assistance completed. rg5 01:05 Inserted saline lock: 24 gauge in right hand, using aseptic technique. Blood collected. oe Flushed with 10 mL NS. 01:05 Ptt, Activated Sent. oe 01:05 Protime (+inr) Sent. oe 01:05 Magnesium Sent. oe 01:05 High Sensitivity Troponin Sent. oe 01:05 Hepatic Function Sent. oe 01:06 CBC with Diff Sent. oe 01:06 CMP Sent. oe 01:06 Lipase Sent. oe 02:25 CT Head Angio In Process Unspecified. EDMS 02:28 CT Neck Angio In Process Unspecified. EDMS 03:39 initiated transfer with Brittany Duke \[facility]. km 05:30 called for update. escalated to [facility] for bed placement. km 07:00 Report received from DOMINIQUE Phillips. kc6 07:00 Patient has correct armband on for positive identification. Bed in low position. Call kc6 light in reach. Side rails up X2. classroom monitor on. Pulse ox on. NIBP on. Door closed. Noise minimized. Lights dimmed. Warm blanket given. Pillow given. Verbal reassurance given. 07:00 Patient maintains SpO2 saturation greater than 95% on room air. kc6 08:30 Assisted to bathroom. kc6 08:33 Warm blanket given. am7 09:[address] the [facility] Transfer [facility] they are still waiting for a bed for the eb patient/ once they get one they will call us. 11:45 administrative approval given by Bernard Bonilla/ patient has been accepted to [facility] room 2238/ Dr. Ceci Monique has accepted the patient in transfer/ report to be called to [phone]. 12:52 Patient transferred, IV remains in place. kc6 Administered Medications: 01:02 Drug: diphenhydrAMINE IVP 25 mg IVP once Route: IVP; Site: right hand; rg5 02:22 Follow up: Response: No adverse reaction rg5 01:03 Drug: Ketorolac IVP 15 mg IVP once Route: IVP; Site: right hand; rg5 02:22 Follow up: Response: No adverse reaction rg5 01:03 Drug: metoCLOPramide IVP 10 mg IVP once; over 1 to 2 minutes Route: IVP; Site: right rg5 hand; 02:22 Follow up: Response: No adverse reaction rg5 02:30 Drug: Aspirin PO 162 mg PO once Route: PO; rg5 03:08 Follow up: Response: No adverse reaction rg5 02:30 Drug: foLIC Acid IVPB 1 mg IVPB once Route: IVPB; Site: right antecubital; rg5 03:07 Follow up: IV Status: Completed infusion; IV Intake: 10ml rg5 02:30 Drug: Atorvastatin PO 40 mg PO once Route: PO; rg5 03:08 Follow up: Response: No adverse reaction rg5 09:36 Drug: Metoprolol PO 25 mg PO once Route: PO; kc6 10:11 Follow up: Response: No adverse reaction; Blood pressure is lowered kc6 09:36 Drug: Clopidogrel PO 75 mg PO once Route: PO; kc6 10:11 Follow up: Response: No adverse reaction kc6 09:36 Drug: metFORMIN PO 1000 mg PO once; with meal or snack Route: PO; kc6 10:10 Follow up: Response: No adverse reaction kc6 Medication: 00:35 VIS not applicable for this client. rg5 Intake: 03:07 IV: 10ml; Total: 10ml. rg5 Outcome: 00:22 Decision to Hospitalize by Provider. sb4 03:55 ER care complete, transfer ordered by . gb1 12:51 Transferred by [facility]. to [facility], Transfer form kc6 completed. Note: report given to DOMINIQUE Baca 12:51 Condition: good 12:51 Instructed on the need for transfer, 12:52 Patient left the ED. kc6 NIH Stroke Scale - NIH Stroke Score Date: 12/08/2024 Time: 00:35 Total Score = 0 10. Dysarthria (speech clarity - read or repeat words) - 0(Normal) 11. Extinction and Inattention (visual/tactile/auditory/spatial/personal) - 0(No abnormality) 1a. Level of Consciousness (LOC) - 0(Alert) 1b. Level of Consciousness (LOC) (Month \T\ Age) - 0(Both) 1c. LOC Commands (Open \T\ Closes Eyes/Tape Control Skin Or [place] Operator) - 0(Both) 2. Best Gaze (Lateral Gaze Paresis) - 0(Normal) 3. Visual Field Loss - 0(No visual loss) 4. Facial Palsy - 0(Normal) 5a. Left Arm: Motor (10-second hold) - 0(No drift) 5b. Right Arm: Motor (10-second hold) - 0(No drift) 6a. Left Leg: Motor (5-second hold - always test supine) - 0(No drift) 6b. Right Leg: Motor (5-second hold - always test supine) - 0(No drift) 7. Limb Ataxia (finger/nose \T\ heel/solorio - test with eyes open) - 0(Absent) 8. Sensory Loss (pinprick arms/legs/face) - 0(Normal) 9. Best Language: Aphasia (description/naming/reading) - 0(No aphasia) Initials: rg5 NIH Stroke Scale - NIH Stroke Score Date: 12/08/2024 Time: 02:26 Total Score = 0 10. Dysarthria (speech clarity - read or repeat words) - 0(Normal) 11. Extinction and Inattention (visual/tactile/auditory/spatial/personal) - 0(No abnormality) 1a. Level of Consciousness (LOC) - 0(Alert) 1b. Level of Consciousness (LOC) (Month \T\ Age) - 0(Both) 1c. LOC Commands (Open \T\ Closes Eyes/Tape Control Skin Or [place] Operator) - 0(Both) 2. Best Gaze (Lateral Gaze Paresis) - 0(Normal) 3. Visual Field Loss - 0(No visual loss) 4. Facial Palsy - 0(Normal) 5a. Left Arm: Motor (10-second hold) - 0(No drift) 5b. Right Arm: Motor (10-second hold) - 0(No drift) 6a. Left Leg: Motor (5-second hold - always test supine) - 0(No drift) 6b. Right Leg: Motor (5-second hold - always test supine) - 0(No drift) 7. Limb Ataxia (finger/nose \T\ heel/solorio - test with eyes open) - 0(Absent) 8. Sensory Loss (pinprick arms/legs/face) - 0(Normal) 9. Best Language: Aphasia (description/naming/reading) - 0(No aphasia) Initials: sb4 NIH Stroke Scale - NIH Stroke Score Date: 12/08/2024 Time: 07:00 Total Score = 0 10. Dysarthria (speech clarity - read or repeat words) - 0(Normal) 11. Extinction and Inattention (visual/tactile/auditory/spatial/personal) - 0(No abnormality) 1a. Level of Consciousness (LOC) - 0(Alert) 1b. Level of Consciousness (LOC) (Month \T\ Age) - 0(Both) 1c. LOC Commands (Open \T\ Closes Eyes/Tape Control Skin Or [place] Operator) - 0(Both) 2. Best Gaze (Lateral Gaze Paresis) - 0(Normal) 3. Visual Field Loss - 0(No visual loss) 4. Facial Palsy - 0(Normal) 5a. Left Arm: Motor (10-second hold) - 0(No drift) 5b. Right Arm: Motor (10-second hold) - 0(No drift) 6a. Left Leg: Motor (5-second hold - always test supine) - 0(No drift) 6b. Right Leg: Motor (5-second hold - always test supine) - 0(No drift) 7. Limb Ataxia (finger/nose \T\ heel/soolrio - test with eyes open) - 0(Absent) 8. Sensory Loss (pinprick arms/legs/face) - 0(Normal) 9. Best Language: Aphasia (description/naming/reading) - 0(No aphasia) Initials: kc6 Signatures: Dispatcher [employer] EDMS Akil, Vanda, Reg Reg mr Gomez, Sherrill Panda Kaitlyn, RN RN kc6 Selene Martinez, PA-Steven PA-Steven de la cruz4 Meghann Reyes, RN RN cm10 Alexandra Oscar MD MD gb1 [facility] Mitesh Gray RN RN rg5 Angelica Duarte am7 Corrections: (The following items were deleted from the chart) 09:37 09:37 Neuro: Reports blurred vision kc6 kc6
--- NOTE | 2024-12-08 00:23 | EDPHYS ---
Physician Documentation [facility] Name: Ayleen Salas Age: 69 yrs Sex: Female : 1955 Arrival Date: 12/07/2024 Time: 19:36 Bed 20 Private MD: ED Physician Alexandra Oscar HPI: 12/07 23:03 This 69 yrs old Female presents to ER via EMS with complaints of Weakness. sb4 23:03 Patient presents today with multiple complaints. States that she has a headache in her sb4 occipital region as well as in her forehead that has been going on for about 2 weeks now that is not improving with Tylenol or aspirin. She additionally states that her legs have been swollen bilaterally. Lastly, she states that she has pain in her right breast and feels like something is "in there "states she was seen by her regular doctor 3 months ago and told that everything looked okay. She denies any chest pain or shortness of breath, dizziness, nausea, vomiting, diarrhea. Historical: - Allergies: 20:25 No Known Allergies; cm10 - Home Meds: 12/08 10:13 Entresto 24-26 mg oral tablet 1 tab 2 times per day for chronic heart failure [Active]; kc6 metoprolol tartrate 25 mg Oral tablet 1 tabs 1 times per day for hypertension [Active]; metformin 1,000 mg Oral tablet 1 tab 2 times per day with meals for type 2 diabetes mellitus [Active]; atorvastatin 40 mg oral tablet 1 tab daily for hypercholesterolemia [Active]; aspirin 81 mg oral tablet 1 tab daily [Active]; bupropion HCl 150 mg Oral tablet, sustained-release 12 hr 1 tab daily [Active]; clopidogrel 75 mg oral tablet 1 tab daily [Active]; - PMHx: 12/07 20:25 Hypercholesterolemia; diabetes mellitus; Hypertensive disorder; cm10 - Immunization history:: Adult Immunizations up to date. - Infectious Disease History:: Denies. - Social history:: Smoking status: Patient denies any tobacco usage or history of. ROS: 23:03 Constitutional: Negative for fever, chills, and weight loss, sb4 23:03 MS/extremity: Positive for swelling, of the right leg and left leg, 23:03 Neuro: Positive for headache, 23:03 All other systems are negative, Exam: 23:04 Constitutional: This is a well developed, well nourished patient who is awake, alert, sb4 and in no acute distress. Head/Face: Normocephalic, atraumatic. Eyes: Extra-ocular motions intact. Periorbital areas with no swelling, redness, or edema. ENT: Mucous membranes moist. Cardiovascular: Regular rate and rhythm with a normal S1 and S2. Respiratory: No increased work of breathing, no retractions or nasal flaring. Abdomen/GI: Soft, non-tender, no distension. Skin: Warm, dry with normal turgor. Normal color with no rashes, no lesions, and no evidence of cellulitis. 23:04 Cardiovascular: Edema: pedal edema, that is mild, 12/08 02:26 Neuro: Exam negative for focal neuro deficits, sensory deficits, altered mental status, sb4 confusion, disorientation, dizziness, dysarthria, gait abnormality, memory loss, positive for generalized weakness, Vital Signs: 12/07 20:22 BP 172 / 77; Pulse 72; Resp 16; Temp 99.2; Pulse Ox 96% on R/A; Weight 108.86 kg; Pain cm10 7/10; 12/08 01:20 BP 186 / 89; Pulse 70; Resp 18; Pulse Ox 99% ; rg5 06:18 BP 178 / 97; Pulse 66; Resp 18; Pulse Ox 99% ; rg5 07:20 BP 205 / 95; Pulse 62; Resp 17 S; Pulse Ox 96% on R/A; kc6 07:31 BP 175 / 92; kc6 08:57 BP 173 / 88; Pulse 64; Resp 16 S; Pulse Ox 97% on R/A; kc6 09:20 BP 214 / 91; Pulse 67; Resp 18 S; Pulse Ox 98% on R/A; kc6 10:10 BP 164 / 72; Pulse 58; Resp 16 S; Pulse Ox 98% on R/A; kc6 12:42 BP 133 / 78; Pulse 70; Resp 18 S; Pulse Ox 100% on R/A; kc6 12/07 20:22 Pain Scale: Adult cm10 NIH Stroke Scale Scores: 00:35 NIHSS Score: 0 rg5 02:26 NIHSS Score: 0 sb4 07:00 NIHSS Score: 0 kc6 MDM: 12/07 20:58 Medical Screening Exam initiated 12/08 00:23 Data reviewed: vital signs, nurses notes, lab test result(s), radiologic studies, and sb4 as a result, I will admit patient. Counseling: I had a detailed discussion with the patient and/or guardian regarding the historical points, exam findings, and any diagnostic results supporting the discharge/admit diagnosis, the presence of at least one elevated blood pressure reading (>120/80) during this emergency department visit, lab results, radiology results, the need for further work-up and treatment in the hospital. 12/07 22:22 Order name: CBC with Diff; Complete Time: : sb12/07 22:22 Order name: CMP; Complete Time: sb12/07 22:22 Order name: Lipase; Complete Time: 12/08 00:24 Order name: Hepatic Function; Complete Time: 12/08 00:24 Order name: High Sensitivity Troponin; Complete Time: 12/08 02:06 Interpretation: Abnormal. 12/08 00:24 Order name: Magnesium; Complete Time: 12/08 00:24 Order name: Protime (+inr); Complete Time: :12/08 00:24 Order name: Ptt, Activated; Complete Time: 12/08 00:24 Order name: UDS; Complete Time: 02:17 sb12/08 02:17 Order name: Troponin High Sensitivity; Complete Time: 04:15 gb12/08 09:51 Order name: Glucose, Ancillary Testing EDMS 12/07 22:22 Order name: Chest Single View XRAY; Complete Time: 06:48 sb12/07 23:00 Order name: Head Brain Wo Cont CT; Complete Time: 01:09 sb4 12/07 23:00 Order name: Chest Wo Con CT: breast sincere; Complete Time: 01:09 sb12/08 00:24 Order name: CT Head Angio; Complete Time: 04:15 sb12/08 00:24 Order name: CT Neck Angio; Complete Time: 04:15 sb12/07 22:22 Order name: IV Saline Lock; Complete Time: 23:59 sb4 12/07 22:22 Order name: Labs collected and sent; Complete Time: 01:03 12/08 00:24 Order name: Cardiac monitoring; Complete Time: :12/08 00:24 Order name: EKG - Nurse/Tech; Complete Time: 12/08:24 Order name: IV Saline Lock; Complete Time: :12/08 00:24 Order name: Labs collected and sent; Complete Time: :12/08 00:24 Order name: O2 Per Protocol; Complete Time: 12/08:24 Order name: O2 Sat Monitoring; Complete Time: 12/08 00:24 Order name: Stroke Swallow Screen; Complete Time: sb EC:57 Rate is 68 beats/min. Rhythm is regular, Normal Sinus Rhythm. CT interval is normal at sb4 186 msec. QRS interval is normal at 76 msec. QT interval is normal at 434 msec. No Q waves. T waves are Normal. No ST changes noted. Clinical impression: No evidence of ischemia. No change from previous ECG on January 28, 2024. Interpreted by me. Reviewed by me. Administered Medications: 01:02 Drug: diphenhydrAMINE IVP 25 mg IVP once Route: IVP; Site: right hand; rg5 02:22 Follow up: Response: No adverse reaction rg5 01:03 Drug: Ketorolac IVP 15 mg IVP once Route: IVP; Site: right hand; rg5 02:22 Follow up: Response: No adverse reaction rg5 01:03 Drug: metoCLOPramide IVP 10 mg IVP once; over 1 to 2 minutes Route: IVP; Site: right rg5 hand; 02:22 Follow up: Response: No adverse reaction rg5 02:30 Drug: Aspirin PO 162 mg PO once Route: PO; rg5 03:08 Follow up: Response: No adverse reaction rg5 02:30 Drug: foLIC Acid IVPB 1 mg IVPB once Route: IVPB; Site: right antecubital; rg5 03:07 Follow up: IV Status: Completed infusion; IV Intake: 10ml rg5 02:30 Drug: Atorvastatin PO 40 mg PO once Route: PO; rg5 03:08 Follow up: Response: No adverse reaction rg5 09:36 Drug: Metoprolol PO 25 mg PO once Route: PO; kc6 10:11 Follow up: Response: No adverse reaction; Blood pressure is lowered kc6 09:36 Drug: Clopidogrel PO 75 mg PO once Route: PO; kc6 10:11 Follow up: Response: No adverse reaction kc6 09:36 Drug: metFORMIN PO 1000 mg PO once; with meal or snack Route: PO; kc6 10:10 Follow up: Response: No adverse reaction kc6 Disposition: 03:55 I agree with the assessment and plan of care. I reviewed the patient's care provided by [facility] Advanced Practice Provider \\T\\ agree w/ the diagnosis \\T\\ care plan. I personally saw the pt \\T\\ performed a substantive portion of the visit, incldng all aspects of the (History/Exam/Medical Decision Making). I received this patient in turnover pending a CTA which did show a large vessel occlusion specifically a proximal right P2 segment complete occlusion. I spoke to the neurointerventional list and the patient is outside of the window for thrombectomy since symptoms started about 2 weeks ago. I will transfer her to the [facility]'s telemetry unit on the regular floor covered by the hospitalist service. Full neurology will also be consulted. At this time the patient is outside the window for any TNKase or invasive vascular procedure.. Disposition Summary: 12/08/24 03:55 Transfer Ordered Notes: Transfer Location: [facility] gb Reason: Higher level of care gb1 Condition: Serious(12/08/24 03:55) gb1 Problem: new(12/08/24 03:55) gb1 Symptoms: have worsened(12/08/24 03:55) gb1 Accepting Physician: (12/08/24 12:52) kc6 Diagnosis - Acute cerebrovascular insufficiency gb1 - Weakness(12/08/24 03:55) gb1 - Subsequent non-ST elevation (NSTEMI) myocardial infarction gb1 Forms: - Medication Reconciliation Form gb1 - SBAR form gb1 Critical care time excluding procedures: 03:55 Critical care time: Bedside Care: 45 minutes, Consultation: 30 minutes, Family gb1 Intervention: 25 minutes. Total time: 100 minutes NIH Stroke Scale - NIH Stroke Score Date: 12/08/2024 Time: 00:35 Total Score = 0 10. Dysarthria (speech clarity - read or repeat words) - 0(Normal) 11. Extinction and Inattention (visual/tactile/auditory/spatial/personal) - 0(No abnormality) 1a. Level of Consciousness (LOC) - 0(Alert) 1b. Level of Consciousness (LOC) (Month \\T\\ Age) - 0(Both) 1c. LOC Commands (Open \\T\\ Closes Eyes/Gastroenterology Teacher) - 0(Both) 2. Best Gaze (Lateral Gaze Paresis) - 0(Normal) 3. Visual Field Loss - 0(No visual loss) 4. Facial Palsy - 0(Normal) 5a. Left Arm: Motor (10-second hold) - 0(No drift) 5b. Right Arm: Motor (10-second hold) - 0(No drift) 6a. Left Leg: Motor (5-second hold - always test supine) - 0(No drift) 6b. Right Leg: Motor (5-second hold - always test supine) - 0(No drift) 7. Limb Ataxia (finger/nose \\T\\ heel/solorio - test with eyes open) - 0(Absent) 8. Sensory Loss (pinprick arms/legs/face) - 0(Normal) 9. Best Language: Aphasia (description/naming/reading) - 0(No aphasia) Initials: rg5 NIH Stroke Scale - NIH Stroke Score Date: 12/08/2024 Time: : Total Score = 0 10. Dysarthria (speech clarity - read or repeat words) - 0(Normal) 11. Extinction and Inattention (visual/tactile/auditory/spatial/personal) - 0(No abnormality) 1a. Level of Consciousness (LOC) - 0(Alert) 1b. Level of Consciousness (LOC) (Month \\T\\ Age) - 0(Both) 1c. LOC Commands (Open \\T\\ Closes Eyes/Gastroenterology Teacher) - 0(Both) 2. Best Gaze (Lateral Gaze Paresis) - 0(Normal) 3. Visual Field Loss - 0(No visual loss) 4. Facial Palsy - 0(Normal) 5a. Left Arm: Motor (10-second hold) - 0(No drift) 5b. Right Arm: Motor (10-second hold) - 0(No drift) 6a. Left Leg: Motor (5-second hold - always test supine) - 0(No drift) 6b. Right Leg: Motor (5-second hold - always test supine) - 0(No drift) 7. Limb Ataxia (finger/nose \\T\\ heel/solorio - test with eyes open) - 0(Absent) 8. Sensory Loss (pinprick arms/legs/face) - 0(Normal) 9. Best Language: Aphasia (description/naming/reading) - 0(No aphasia) Initials: sb4 NIH Stroke Scale - NIH Stroke Score Date: 12/08/2024 Time: 07:00 Total Score = 0 10. Dysarthria (speech clarity - read or repeat words) - 0(Normal) 11. Extinction and Inattention (visual/tactile/auditory/spatial/personal) - 0(No abnormality) 1a. Level of Consciousness (LOC) - 0(Alert) 1b. Level of Consciousness (LOC) (Month \\T\\ Age) - 0(Both) 1c. LOC Commands (Open \\T\\ Closes Eyes/Gastroenterology Teacher) - 0(Both) 2. Best Gaze (Lateral Gaze Paresis) - 0(Normal) 3. Visual Field Loss - 0(No visual loss) 4. Facial Palsy - 0(Normal) 5a. Left Arm: Motor (10-second hold) - 0(No drift) 5b. Right Arm: Motor (10-second hold) - 0(No drift) 6a. Left Leg: Motor (5-second hold - always test supine) - 0(No drift) 6b. Right Leg: Motor (5-second hold - always test supine) - 0(No drift) 7. Limb Ataxia (finger/nose \\T\\ heel/solorio - test with eyes open) - 0(Absent) 8. Sensory Loss (pinprick arms/legs/face) - 0(Normal) 9. Best Language: Aphasia (description/naming/reading) - 0(No aphasia) Initials: kc6 Signatures: Dispatcher [employer] EDMS Jes Arias RN RN kc6 Selene Martinez, PA-C PA-C sb4 Meghann Reyes, DOMINIQUE RN cm10 Alexandra Oscar MD MD gb1 Mitesh Gray RN RN rg5 Corrections: (The following items were deleted from the chart) 12/07 22:23 22:23 Chest Single View+RAD.RAD.BRZ ordered. EDMS EDMS 23:01 23:01 Thorax Wo Con+CT.RAD.BRZ ordered. EDMS EDMS 12/08 00:25 00:25 HEPATIC FUNCTION+C.LAB.BRZ ordered. EDMS EDMS 00: 00:25 Troponin High Sensitivity+C.LAB.BRZ ordered. EDMS EDMS 00: 00:25 MAGNESIUM+C.LAB.BRZ ordered. EDOR EDMS 00: 00:25 PROTIME (+INR)+COAG.LAB.BRZ ordered. EDOR EDMS 00: 00:25 PTT, ACTIVATED+COAG.LAB.BRZ ordered. EDOR EDMS 00: 00:25 URINE DRUG SCREEN+UC.LAB.BRZ ordered. EDOR EDMS 00: 00:25 Head Angio+CT.RAD.BRZ ordered. EDMS EDMS 00: 00:25 Neck Angio+CT.RAD.BRZ ordered. EDOR EDMS 02:25 01:57 Rate is 68 beats/min. Rhythm is regular, Normal Sinus Rhythm. CT interval sb4 is normal at 186 msec. QRS interval is normal at 76 msec. QT interval is normal at 434 msec. No Q waves. T waves are Normal. No ST changes noted. Clinical impression: No evidence of ischemia. Interpreted by me. Reviewed by me. sb4 02:28 02:26 Neuro: Exam negative for focal neuro deficits, motor deficits, sensory sb4 deficits, cerebellar deficits, altered mental status, confusion, disorientation, dizziness, dysarthria, gait abnormality, sb4 03:53 00:22 Inpatient Admission sb4 gb1 03:53 00:22 Eric Damon sb4 gb1 03:53 00:22 Telemetry/MedSurg (Inpatient) sb4 gb1 03:53 00:22 Fair sb4 gb1 03: 00:22 new sb4 gb1 03: 00:22 are unchanged sb4 gb1 03:53 00:22 Standard sb4 gb1 03:53 00:22 sb4 gb1 03:53 00:22 Subacute right occipital infarct sb4 gb1 03:53 00:22 Weakness sb4 gb1 03:53 02:30 Elevated troponin sb4 gb1 12:52 03:55 gb1 kc6
--- NOTE | 2024-12-08 00:30 | RAD REPORT ---
ADDENDUM #1 Additional provided history: patient has been experiencing occipital pain for a couple weeks. No loca lized stroke symptoms. Although no significant mass effect on the CT, the brain MR imaging can be performed with and without contrast to evaluate for an underlying lesion. THIS REPORT CONTAINS FINDINGS THAT MAY BE CRITICAL TO PATIENT CARE: The findings were verbally discus sed via telephone conference with CALRY Larry on 12/08/2024 12:18 AM CDT. The results were acknowledged and understood. Electronically signed by: Carlos Tavarez MD 12/08/2024 12:25 AM [email or web address] End of Addendum EXAM: CT Head Without Intravenous Contrast CLINICAL HISTORY: PAIN TECHNIQUE: Axial computed tomography images of the head/brain without intravenous contrast. Sagittal and coron al reformatted images were created and reviewed. This CT exam was performed using one or more of the following dose reduction techniques: automated exposure control, adjustment of the mA and/or kV according to patient size, and/or use of iterative reconstruction technique. COMPARISON: No relevant prior studies available. FINDINGS: Brain: Mild cerebral atrophy. Patchy bilateral periventricular and subcortical white matter low att enuation most compatible with chronic microvascular angiopathy. Remote right basal ganglia lacunar infarct. Right occipitotemporal low density with loss of adame-white matter differentiation suggestive of subacute infarct. No acute hemorrhage. Ventricles: Unremarkable. No ventriculomegaly. Bones/joints: Remote right medial orbital wall fracture deformity. No acute fracture. Soft tissues: Unremarkable. Vasculature: There is atherosclerotic disease of the internal carotid and vertebral arteries bilate rally. Sinuses: Mild bilateral maxillary and ethmoid sinus mucosal thickening. Mastoid air cells: Unremarkable as visualized. No mastoid effusion. IMPRESSION: 1. Findings suggestive of a subacute right occipitotemporal infarct. No acute hemorrhage. Brain MR is recommended for further characterization. 2. Other findings as above. Electronically signed by: Carlos Tavarez MD 12/08/2024 12:16 AM [email or web address] RP Due to temporary technical issues with the PACS/[employer] reporting system, reports are being cari d by the in-house radiologist without review as a courtesy to ensure prompt reporting the interpreting radiologist is fully responsible for the content of the report. Transcribed Date/Time: 12/08/2024 12:30 AM
--- NOTE | 2024-12-08 00:31 | RAD REPORT ---
Clinical Indication: Bed Name: 20; right breast pain;Dyspnea Comparison: None TECHNIQUE: Sequential trans-axial images were obtained through the chest and upper abdomen without io dinated contrast. Coronal and sagittal reconstructions were obtained and provided as separate series. All CT scans at this location are performed using dose optimization techniques as appropriate to perf orm the study. Radiation dose reduction technique was utilized including one or more of the following: Automated exp osure control, adjustment of the mA and/or kV according to patient size and use of iterative reconstruction technique. CT Radiation Dose DLP 1657.5 mGy-cm FINDINGS: LUNG PARENCHYMA AND PLEURA: No airspace opacities are noted. Mild atelectasis is noted in the lingula and left upper lobe. There are no lung nodules. There is no significant interstitial lung disease. There are no pleural effusions. There is no pneumothorax. AIRWAY: The central airway is patent. MEDIASTINUM: No significant mediastinal lymphadenopathy. HEART: The heart is normal in size. There is no pericardial effusion. VASCULAR STRUCTURES: The pulmonary arteries and great vessels are normal in caliber. The thoracic aorta is normal in caliber. The superior vena cava is unremarkable. OSSEOUS STRUCTURES: There are no acute osseous abnormalities seen. VISUALIZED UPPER ABDOMEN: The visualized upper abdomen is within normal limits. ESOPHAGUS: No gross abnormalities. No skin thickening or inflammatory changes are noted within the breasts. No large soft tissue mass is noted. No loculated fluid collection is noted. IMPRESSION: 1. Chest CT without contrast is within normal limits. 2. No CT abnormality of the right breast. Electronically signed by: Enrrique Rizzo MD 12/08/2024 12:13 AM CDT RP Due to temporary technical issues with the PACS/[employer] reporting system, reports are being cari d by the in-house radiologist without review as a courtesy to ensure prompt reporting the interpreting radiologist is fully responsible for the content of the report. Transcribed Date/Time: 12/08/2024 12:31 AM
[2024-12-08 01:28] LABS: Absolute Basophils 0.1 K/uL (0-0.5); Absolute Eosinophils 0.3 K/uL (0-0.5); Absolute Lymphocytes (CBC) 2.7 K/uL (0.7-4.9); Absolute Monocytes 1.1 K/uL (0.1-1.3); Absolute Neutrophil 5.9 K/uL (1.8-8.0); Basophils % 0.8 % (0-1.3); Eosinophils % 2.7 % (0-4.4); Hematocrit 38.2 % (36.0-45.0); Hemoglobin 12.8 g/dL (12.0-15.0); Lymphocytes % 26.7 % (15.3-44.8); MCH 28.1 pg (27.0-35.0); MCHC 33.4 g/dL (32.0-36.0); MCV 83.9 fL (80-100); MPV 9.7 fL (7.6-11.3); Monocytes % 10.6 % (3.3-12.3); Neutrophils % 59.2 % (41.7-73.7); Nucleated Red Blood Cells % 0.2 % (0-0); Platelets 313 thou/uL (152-406); RBC Red Blood Cell Count 4.55 M/uL (3.86-4.86); Red Cell Distribution Width 13.8 % (12.1-15.2)
[2024-12-08 01:31] LABS: PT Prothrombin Time 11.4 SECONDS (10-13.0); PTT, Activated Partial Thromb 28.4 SECONDS (27.2-37.4)
[2024-12-08 01:38] LABS: Albumin 3.2 g/dL (3.4-5.0); Albumin/Globulin Ratio 0.7 (1.1-1.8); Anion Gap 9.3 mEq/L (5.0-15.0); Bilirubin Total 0.3 mg/dL (0.2-1.0); Globulin 4.3 g/dL (2.3-3.5); Potassium 4.3 mEq/L (3.5-5.1); Protein, Total 7.5 g/dL (6.4-8.2)
[2024-12-08 01:39] LABS: ALT/SGPT 22 U/L (13-56); AST/SGOT 16 U/L (15-37); Albumin 3.3 g/dL (3.4-5.0); Albumin/Globulin Ratio 0.8 (1.1-1.8); Alkaline Phosphatase 88 U/L (45-117); Bilirubin Direct < 0.2 mg/dL (0-0.2); Bilirubin Indirect, Calculated 0.1 mg/dL (0.2-0.8); Bilirubin Total 0.3 mg/dL (0.2-1.0); Globulin 4.2 g/dL (2.3-3.5); Protein, Total 7.5 g/dL (6.4-8.2)
[2024-12-08 01:40] LABS: Troponin High Sensitivity 266.2 pg/mL (<58.9)
[2024-12-08 02:12] LABS: Barbiturates NEGATIVE (NEGATIVE); Benzodiazepines NEGATIVE (NEGATIVE); Cocaine NEGATIVE (NEGATIVE); METHAMPHETAM NEGATIVE (NEGATIVE); Methadone NEGATIVE (NEGATIVE); Opiates NEGATIVE (NEGATIVE); Phencyclidine NEGATIVE (NEGATIVE); THC Cannibis NEGATIVE (NEGATIVE)
[2024-12-08] MEDS ORDERED: ASPIRIN 81 MG CHEWABLE TABLET ONE (02:59)
[2024-12-08] MEDS ORDERED: ATORVASTATIN 40 MG TAB ONE (03:00)
[2024-12-08] MEDS ORDERED: FOLIC ACID 5 MG/ML VIAL ONE (03:01)
--- NOTE | 2024-12-08 04:03 | RAD REPORT ---
PROCEDURE: CT Angiography Head and Neck With Intravenous Contrast CLINICAL INDICATION: The patient is 69 years old and is Female; Stroke. TECHNIQUE: [place] [facility] [place]/head and neck CT angiography protocol performed with intravenous contrast. Sagitta l and coronal reformatted images were created and reviewed. This CT exam was performed using one or more of the following dose reduction techniques: automated exposure control, adjustment of the m A and/or kV according to patient size, and/or use of iterative reconstruction technique. MIP reconstructed images were created and reviewed. COMPARISON: CT Head 12/07/[address] Head Cervical spine 01/28/2024. FINDINGS: HEAD: RIGHT ANTERIOR CEREBRAL ARTERY: A patent anterior communicating artery is not definitively seen, th ough both of the proximal A2 segments nearly contact each other. No occlusion or significant stenosis. No aneurysm. RIGHT MIDDLE CEREBRAL ARTERY: Unremarkable No occlusion or significant stenosis. No aneurysm. RIGHT POSTERIOR CEREBRAL ARTERY: Occlusion of the proximal right OCCUPATIONAL SAFETY AND HEALTH MANAGER P2 segment. No aneurysm. RIGHT INTRACRANIAL INTERNAL CAROTID ARTERY: Mild calcification of the cavernous and clinoid segment s of the right ICA with less than 50% luminal stenosis. No dissection or occlusion. RIGHT INTRACRANIAL VERTEBRAL ARTERY: Unremarkable No significant stenosis. No dissection or occ lusion. LEFT ANTERIOR CEREBRAL ARTERY: See above. LEFT MIDDLE CEREBRAL ARTERY: Unremarkable No occlusion or significant stenosis. No aneurysm. LEFT POSTERIOR CEREBRAL ARTERY: Prominent left posterior communicating artery which predominantly p erfuses the left OCCUPATIONAL SAFETY AND HEALTH MANAGER. No occlusion or significant stenosis. No aneurysm. LEFT INTRACRANIAL INTERNAL CAROTID ARTERY: Mild calcification of the cavernous and clinoid segments of the left ICA with less than 50% luminal stenosis. No dissection or occlusion. LEFT INTRACRANIAL VERTEBRAL ARTERY: Moderate calcification of the proximal left vertebral artery V4 segment with mild associated luminal stenosis. No dissection or occlusion. BASILAR ARTERY: Unremarkable No occlusion or significant stenosis. No aneurysm. OTHER VASCULATURE: See below. NECK: RIGHT COMMON CAROTID ARTERY: See below. RIGHT EXTRACRANIAL INTERNAL CAROTID ARTERY: Unremarkable No significant stenosis. No dissection or occlusion. RIGHT EXTERNAL CAROTID ARTERY: Unremarkable No occlusion. RIGHT EXTRACRANIAL VERTEBRAL ARTERY: Unremarkable No significant stenosis. No dissection or occ lusion. LEFT COMMON CAROTID ARTERY: See below. LEFT EXTRACRANIAL INTERNAL CAROTID ARTERY: Unremarkable No significant stenosis. No dissection or occlusion. LEFT EXTERNAL CAROTID ARTERY: Unremarkable No occlusion. LEFT EXTRACRANIAL VERTEBRAL ARTERY: Dominant left vertebral artery. RETROPHARYNGEAL SPACE: Retropharyngeal coursing of the distal bilateral common carotid arteries at the C2-3 through C3-4 intervertebral levels. LUNG APICES: Unremarkable as visualized. HEAD and NECK: BONES/JOINTS: Unremarkable No discrete lytic or blastic abnormalities. SOFT TISSUES: Unremarkable CAROTID STENOSIS REFERENCE USING NASCET CRITERIA: % ICA stenosis = (1 - narrowest ICA diameter/diameter of distal cervical ICA) x 100. Mild - <50% stenosis. Moderate - 50-69% stenosis. Severe - 70-94% stenosis. Near occlusion - 95-99% stenosis. Occluded - 100% stenosis. IMPRESSION: 1. Occlusion of the proximal right OCCUPATIONAL SAFETY AND HEALTH MANAGER P2 segment. 2. No other occlusion, high-grade stenosis, or acute abnormality of the cervical or central intracr anial arteries. Dr. Henry discussed these critical findings with Dr. Alexandra Oscar via telephone at approximately 04:3 8 hours EST on 12/08/2024. Electronically signed by: Harjeet Henry MD 12/08/2024 03:41 AM CDT RP Due to temporary technical issues with the PACS/[employer] reporting system, reports are being cari d by the in-house radiologist without review as a courtesy to ensure prompt reporting the interpreting radiologist is fully responsible for the content of the report. Transcribed Date/Time: 12/08/2024 4:03 AM
--- NOTE | 2024-12-08 04:04 | RAD REPORT ---
PROCEDURE: CT Angiography Head and Neck With Intravenous Contrast CLINICAL INDICATION: The patient is 69 years old and is Female; Stroke. TECHNIQUE: [facility]/head and neck CT angiography protocol performed with intravenous contrast. Sagitta l and coronal reformatted images were created and reviewed. This CT exam was performed using one or more of the following dose reduction techniques: automated exposure control, adjustment of the m A and/or kV according to patient size, and/or use of iterative reconstruction technique. MIP reconstructed images were created and reviewed. COMPARISON: CT Head 12/07/[address] Head Cervical spine 01/28/2024. FINDINGS: HEAD: RIGHT ANTERIOR CEREBRAL ARTERY: A patent anterior communicating artery is not definitively seen, th ough both of the proximal A2 segments nearly contact each other. No occlusion or significant stenosis. No aneurysm. RIGHT MIDDLE CEREBRAL ARTERY: Unremarkable No occlusion or significant stenosis. No aneurysm. 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 No aneurysm. RIGHT INTRACRANIAL INTERNAL CAROTID ARTERY: Mild calcification of the cavernous and clinoid segment s of the right ICA with less than 50% luminal stenosis. No dissection or occlusion. RIGHT INTRACRANIAL VERTEBRAL ARTERY: Unremarkable No significant stenosis. No dissection or occ lusion. LEFT ANTERIOR CEREBRAL ARTERY: See above. LEFT MIDDLE CEREBRAL ARTERY: Unremarkable No occlusion or significant stenosis. No aneurysm. LEFT POSTERIOR CEREBRAL ARTERY: Prominent left posterior communicating artery which predominantly p erfuses the left SEAM CHECKER. No occlusion or significant stenosis. No aneurysm. LEFT INTRACRANIAL INTERNAL CAROTID ARTERY: Mild calcification of the cavernous and clinoid segments of the left ICA with less than 50% luminal stenosis. No dissection or occlusion. LEFT INTRACRANIAL VERTEBRAL ARTERY: Moderate calcification of the proximal left vertebral artery V4 segment with mild associated luminal stenosis. No dissection or occlusion. BASILAR ARTERY: Unremarkable No occlusion or significant stenosis. No aneurysm. OTHER VASCULATURE: See below. NECK: RIGHT COMMON CAROTID ARTERY: See below. RIGHT EXTRACRANIAL INTERNAL CAROTID ARTERY: Unremarkable No significant stenosis. No dissection or occlusion. RIGHT EXTERNAL CAROTID ARTERY: Unremarkable No occlusion. RIGHT EXTRACRANIAL VERTEBRAL ARTERY: Unremarkable No significant stenosis. No dissection or occ lusion. LEFT COMMON CAROTID ARTERY: See below. LEFT EXTRACRANIAL INTERNAL CAROTID ARTERY: Unremarkable No significant stenosis. No dissection or occlusion. LEFT EXTERNAL CAROTID ARTERY: Unremarkable No occlusion. LEFT EXTRACRANIAL VERTEBRAL ARTERY: Dominant left vertebral artery. RETROPHARYNGEAL SPACE: Retropharyngeal coursing of the distal bilateral common carotid arteries at the C2-3 through C3-4 intervertebral levels. LUNG APICES: Unremarkable as visualized. HEAD and NECK: BONES/JOINTS: Unremarkable No discrete lytic or blastic abnormalities. SOFT TISSUES: Unremarkable CAROTID STENOSIS REFERENCE USING NASCET CRITERIA: % ICA stenosis = (1 - narrowest ICA diameter/diameter of distal cervical ICA) x 100. Mild - <50% stenosis. Moderate - 50-69% stenosis. Severe - 70-94% stenosis. Near occlusion - 95-99% stenosis. Occluded - 100% stenosis. IMPRESSION: 1. 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 2. No other occlusion, high-grade stenosis, or acute abnormality of the cervical or central intracr anial arteries. Dr. Henry discussed these critical findings with Dr. Alexandra Oscar via telephone at approximately 04:3 8 hours EST on 12/08/2024. Electronically signed by: Harjeet Henry MD 12/08/2024 03:41 AM CDT RP Due to temporary technical issues with the PACS/[employer] reporting system, reports are being cari d by the in-house radiologist without review as a courtesy to ensure prompt reporting the interpreting radiologist is fully responsible for the content of the report. Transcribed Date/Time: 12/08/2024 4:04 AM
--- NOTE | 2024-12-08 05:42 | RAD REPORT ---
EXAM DESCRIPTION: Chest Single View CLINICAL HISTORY: CHEST PAIN COMPARISON: None TECHNIQUE: Single AP view of the chest. FINDINGS: Lung volumes adequate. Cardiac silhouette is enlarged. No pneumothorax. No large pleural effusion. Bilateral interstitial thickening. No focal consolidation. No acute bony finding. IMPRESSION: 1. Bilateral interstitial thickening, could represent pulmonary edema. 2. Enlarged cardiac silhouette. Electronically signed by: Jam Worrell MD 12/07/2024 11:09 PM CDT RP TYG Due to temporary technical issues with the PACS/[employer] reporting system, reports are being cari d by the in-house radiologist without review as a courtesy to ensure prompt reporting the interpreting radiologist is fully responsible for the content of the report. Transcribed Date/Time: 12/08/2024 5:41 AM
[2024-12-08] MEDS ORDERED: METFORMIN HCL 500 MG TAB ONE (09:22)
[2024-12-08] MEDS ORDERED: CLOPIDOGREL 75 MG TABLET ONE (09:22)
[2024-12-08] MEDS ORDERED: METOPROLOL TAR 25 MG TAB ONE ×2 (09:22→09:28)
[2024-12-08 13:02] VITALS: TEMP 99.2
[2024-12-08 13:25] VITALS: BP 133/78; O2SAT 100
--- NOTE | 2024-12-11 16:52 | EKG ---
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
== END 2024-12-08 12:52 | disposition short-term general hospital (02) ==
LOC: ER 19:36
DX: I67.81 Acute cerebrovascular insufficiency (principal); I22.2 Subsequent non-ST elevation (NSTEMI) myocardial infarction; I21.9 Acute myocardial infarction, unspecified; I10 Essential (primary) hypertension; I50.9 Heart failure, unspecified; E11.9 Type 2 diabetes mellitus without complications; E78.00 Pure hypercholesterolemia, unspecified; Z79.82 Long term (current) use of aspirin
CPT/HCPCS: 96365; 93005; 85025; 36415; 83735; 85610; 82947; 80076; 85730; 84484 ×2; 83690; 80053; 80307; 70450; 71250; 70496; 70498; 71045; 96375; 99285; Q9967; J2765; J1200